=== PATIENT | female | born 1950 | race Caucasian/White ===

== ENCOUNTER 2019-08-11 08:56 | Outpatient (CLI) | payer MEDICARE, SELFPAY ==
--- NOTE | 2019-08-11 09:02 | MM_ITS ---
WS: [id number] BILATERAL DIGITAL SCREENING MAMMOGRAPHY WITH CAD CLINICAL INFORMATION: SCREENING HISTORY: Screening mammogram. No current complaints. COMPARISON: TECHNIQUE: Bilateral CC and MLO views. FINDINGS: The breasts are composed of heterogeneous fibroglandular density tissue, which can limit the detectio n of small underlying mass lesions. No suspicious mass, asymmetry, calcifications, or architectural d istortion. No evidence of malignancy. MM/[place] [id number] IMPRESSION: BI-RADS: 2-Benign FOLLOW UP: 1 Year Follow-up Recommend return to annual screening mammography.
== END 2019-08-11 08:57 | disposition home or self-care (01) ==
LOC: RADSHAW 09:01
PROVIDERS: PCP Electrodiagnostic Medicine; Visit Provider Electrodiagnostic Medicine
DX: Z12.31 Encounter for screening mammogram for malignant neoplasm of breast (principal)
CPT/HCPCS: 77067

== ENCOUNTER 2019-08-12 16:22 | Outpatient (CLI) | payer MEDICARE, SELFPAY ==
--- NOTE | 2019-08-12 16:32 | XRR_ITS ---
PROCEDURE INFORMATION: Exam: XR Abdomen, 1 View Exam date and time: 08/12/2019 4:39 PM Age: 68 years old Clinical indication: Other: Urinary issues, frequent urination; Prior surgery; Surgery date: 6+ months; Surgery type: Appy/hyst TECHNIQUE: Imaging protocol: XR of the abdomen. Views: Frontal supine view of the abdomen. 1 View. COMPARISON: No relevant prior studies available. FINDINGS: Gastrointestinal tract: The bowel gas pattern is nonspecific Bones/joints: Unremarkable. XR/XR KUB [id number] IMPRESSION: No acute findings.
== END 2019-08-12 16:23 | disposition home or self-care (01) ==
LOC: RAD 16:24
PROVIDERS: PCP Electrodiagnostic Medicine; Visit Provider Nurse Practitioner
DX: R35.0 Frequency of micturition (principal); N39.0 Urinary tract infection, site not specified
CPT/HCPCS: 74018; 81000

== ENCOUNTER 2019-08-24 10:31 | Outpatient (CLI) | payer MEDICARE, SELFPAY ==
--- NOTE | 2019-08-24 10:37 | XR_ITS ---
WS: [id number] FOOT RIGHT TECHNIQUE: 3 views of the right foot CLINICAL INFORMATION: FOOT PAIN RIGHT, FALL, CLOSED FRACTURE OF METATARSAL BONE COMPARISON: 2019 FINDINGS: Hallux valgus. Osteopenia. Prior postoperative changes plate and screw fixation second third and four th metatarsals with healed fractures. Progressed degenerative narrowing involving the first TMT joint . XR/XR foot RT min 3V* [id number] IMPRESSION: 1. Hallux valgus with bunion deformity. 2. Postoperative changes plate and screw fixation ununited second third and fo urth metatarsal fractures 3. Progressed degenerative changes at the first TMT.
== END 2019-08-24 10:32 | disposition home or self-care (01) ==
LOC: RADWPI 10:35
PROVIDERS: Family Provider Electrodiagnostic Medicine; PCP Electrodiagnostic Medicine; Visit Provider Electrodiagnostic Medicine
DX: S92.321A Displaced fracture of second metatarsal bone, right foot, initial encounter for closed fracture; S92.331A Displaced fracture of third metatarsal bone, right foot, initial encounter for closed fracture; S92.341A Displaced fracture of fourth metatarsal bone, right foot, initial encounter for closed fracture; X58.XXXA Exposure to other specified factors, initial encounter
CPT/HCPCS: 73630

== ENCOUNTER → 2019-09-12 13:56 | Outpatient (BNVA) | payer MEDICARE, SELFPAY | PROVIDERS: Family Provider Electrodiagnostic Medicine; PCP Electrodiagnostic Medicine; Referring Provider Electrodiagnostic Medicine; Visit Provider Nurse Practitioner Family | DX: N30.20 Other chronic cystitis without hematuria (principal) | CPT/HCPCS: 80053; 81001 ==

== ENCOUNTER → 2019-09-29 09:59 | Outpatient (BNVA) | payer MEDICARE, SELFPAY | PROVIDERS: Family Provider Electrodiagnostic Medicine; PCP Electrodiagnostic Medicine; Visit Provider Internal Medicine Rheumatology | DX: Z79.899 Other long term (current) drug therapy (principal); R76.8 Other specified abnormal immunological findings in serum; Z96.659 Presence of unspecified artificial knee joint; M25.50 Pain in unspecified joint; L65.9 Nonscarring hair loss, unspecified; M85.80 Other specified disorders of bone density and structure, unspecified site | CPT/HCPCS: 36415; 80076; 81001; 82565; 82570; 84156; 85025; 99203 ==

== ENCOUNTER → 2019-10-12 08:45 | Outpatient (BNVA) | payer MEDICARE, SELFPAY | PROVIDERS: Family Provider Electrodiagnostic Medicine; PCP Electrodiagnostic Medicine; Visit Provider Urology | DX: N30.90 Cystitis, unspecified without hematuria (principal); R10.2 Pelvic and perineal pain | CPT/HCPCS: 81001 ==

== ENCOUNTER 2019-11-18 08:20 | Outpatient (CLI) | payer MEDICARE, SELFPAY ==
--- NOTE | 2019-11-18 08:00 | US_ITS ---
WS: [id number] ULTRASOUND PELVIS TECHNIQUE: Transabdominal. CLINICAL INFORMATION: PELVIC PAIN : No. COMPARISON: None. FINDINGS: History of hysterectomy/partial hysterectomy. Uterus is not visualized. Adnexa: Left ovary not visualized Right ovary size: 2.4 cm x 1.9 cm x 1.1 cm. Right ovary volume: 2.6 ccm3 Free fluid: None. Other findings: None. US/US pelvic complete* [id number] IMPRESSION: 1. History of hysterectomy/partial hysterectomy. Uterus not visualized. 2. Left ovary not visualized. Small right ovary measuring 2.3 x 1.1 x 1.8 cm. 3. Normal adnexa. 4. No free fluid in the cul-de-sac.
== END 2019-11-18 08:21 | disposition home or self-care (01) ==
PROVIDERS: PCP Electrodiagnostic Medicine; Visit Provider Urology
DX: R10.2 Pelvic and perineal pain (principal)
CPT/HCPCS: 76856; 81001

== ENCOUNTER → 2019-12-19 09:05 | Outpatient (BNVA) | payer MEDICARE, SELFPAY | PROVIDERS: PCP Electrodiagnostic Medicine; Visit Provider Nurse Practitioner Family | DX: N30.90 Cystitis, unspecified without hematuria (principal) | CPT/HCPCS: 81003 ==

== ENCOUNTER → 2020-03-05 09:42 | Outpatient (BNVA) | payer MEDICARE, SELFPAY | PROVIDERS: PCP Electrodiagnostic Medicine; Visit Provider Nurse Practitioner Family | DX: N30.20 Other chronic cystitis without hematuria (principal) | CPT/HCPCS: 81003 ==

== ENCOUNTER 2021-01-15 13:22 | Outpatient (CLI) | payer MEDICARE, SELFPAY ==
[2021-01-15 13:41] VITALS: BP 140/63; PULSE 61; RESP 22; TEMP 36.9; O2SAT 98; BMI 29.7
[2021-01-15 14:11] VITALS: BP 140/71; PULSE 56; RESP 20; O2SAT 95
[2021-01-15 15:06] VITALS: BP 157/69; PULSE 61; RESP 18; TEMP 36.6; O2SAT 95
== END 2021-01-15 13:23 | disposition home or self-care (01) ==
LOC: OPS 13:23
PROVIDERS: PCP Electrodiagnostic Medicine; Visit Provider Electrodiagnostic Medicine
DX: U07.1 COVID-19 (principal)
CPT/HCPCS: 96365

== ENCOUNTER 2021-05-23 08:54 | Outpatient (CLI) | payer MEDICARE, SELFPAY ==
--- NOTE | 2021-05-23 09:04 | MM_ITS ---
WS: [id number] BILATERAL 3D TOMOSYNTHESIS DIGITAL SCREENING MAMMOGRAPHY WITH CAD CLINICAL INFORMATION: SCREEN HISTORY: Screening mammogram. No current complaints. COMPARISON: August 11, 2019 TECHNIQUE: Bilateral CC and MLO views. FINDINGS: Scattered fibroglandular densities bilaterally. Punctate and lucent centered calcifications. Vascular calcification. Stable ovoid intramammary lymph node inner RIGHT breast. No suspicious focal mass, as ymmetry, calcifications, or architectural distortion. No evidence of malignancy. MM/[place] [id number] IMPRESSION: BI-RADS: 2-Benign FOLLOW UP: 1 Year Follow-up Recommend return to annual screening mammography.
== END 2021-05-23 08:55 | disposition home or self-care (01) ==
LOC: RADSHAW 08:57
PROVIDERS: PCP Electrodiagnostic Medicine; Visit Provider Electrodiagnostic Medicine
DX: Z12.31 Encounter for screening mammogram for malignant neoplasm of breast (principal)
CPT/HCPCS: 77063; 77067

== ENCOUNTER 2022-05-27 10:06 | Outpatient (CLI) | payer MEDICARE, SELFPAY ==
--- NOTE | 2022-05-27 10:22 | MM_ITS ---
WS: [id number] BILATERAL 3D TOMOSYNTHESIS DIGITAL SCREENING MAMMOGRAPHY WITH CAD CLINICAL INFORMATION: SCREENING HISTORY: Screening mammogram. No current complaints. COMPARISON: May 23, 2021 TECHNIQUE: Bilateral CC and MLO views. FINDINGS: The breasts are composed of heterogeneous fibroglandular density tissue, which can limit the detectio n of small underlying mass lesions. No suspicious mass, asymmetry, calcifications, or architectural d istortion. No evidence of malignancy. Punctate and lucent centered calcifications. Vascular calcifica tion. MM/[place] [id number] IMPRESSION: BI-RADS: 2-Benign FOLLOW UP: 1 Year Follow-up Recommend return to annual screening mammography.
== END 2022-05-27 10:07 | disposition home or self-care (01) ==
PROVIDERS: PCP Electrodiagnostic Medicine; Visit Provider Electrodiagnostic Medicine
DX: Z12.31 Encounter for screening mammogram for malignant neoplasm of breast (principal)
CPT/HCPCS: 77063; 77067

== ENCOUNTER → 2022-10-21 07:27 | Outpatient (BNVA) | payer MEDICARE, SELFPAY | PROVIDERS: PCP Electrodiagnostic Medicine; Visit Provider Otolaryngology | DX: K12.30 Oral mucositis (ulcerative), unspecified; K05.10 Chronic gingivitis, plaque induced; R76.8 Other specified abnormal immunological findings in serum | CPT/HCPCS: 99203 ==

== ENCOUNTER 2023-03-29 23:47 | Inpatient (IN) | payer MEDICARE, SELFPAY ==
[2023-03-30] VITALS (65 sets, daily range): BP systolic 92–195; BP diastolic 30–82; PULSE 48–71; RESP 11–28; TEMP 36.4–36.6; O2SAT 95–99; BMI 30.7; BMI 32.3
--- NOTE | 2023-03-30 00:37 | XRR_ITS ---
PROCEDURE INFORMATION: Exam: XR Chest Exam date and time: 03/30/2023 1:05 AM Age: 72 years old Clinical indication: Prior surgery; Surgery date: 6+ months; Surgery type: Ptca; Patient HX: Hypertensive over 200 systolic; Additional info: Jaw pain HTN TECHNIQUE: Imaging protocol: Radiologic exam of the chest. Views: 1 view. COMPARISON: No relevant prior studies available. FINDINGS: Lungs: No definite CHF/pulmonary edema. Poor inspiration somewhat limits evaluation, especially of the lung bases. Visible lungs appear essentially clear. Pleural spaces: No visible pneumothorax. No definite pleural fluid. Heart/Mediastinum: Heart size appears upper normal/mildly prominent. Bones/joints: No significant acute finding. XR/XR chest 1V portable [id number] IMPRESSION: 1. No definite CHF or pneumonia. 2. Other findings discussed above.
--- NOTE | 2023-03-30 00:37 | CTR_ITS ---
PROCEDURE INFORMATION: Exam: CT Head Without Contrast Exam date and time: 03/30/2023 1:09 AM Age: 72 years old Clinical indication: Pain; Headache; Patient HX: KC with hypertension over 200 systolic; Additional info: Headache HTN TECHNIQUE: Imaging protocol: Computed tomography of the head without contrast. Radiation optimization: All CT scans at this facility use at least one of these dose optimization techniques: automated exposure control; mA and/or kV adjustment per patient size (includes targeted exams where dose is matched to clinical indication); or iterative reconstruction. COMPARISON: No relevant prior studies available. RADIATION DOSE METRICS: Total DLP (mGy-cm): 1011.13 FINDINGS: Brain: No acute intracranial hemorrhage or mass effect. There is decreased attenuation in the periventricular white matter, likely from microvascular disease. No definite acute infarct by CT. MRI would be more sensitive/specific for detection, as clinically directed. Cerebral ventricles: Ventricle size is normal for age. Paranasal sinuses: Included paranasal sinuses are essentially clear. Mastoid air cells: No significant acute finding. Bones/joints: No definite acute skull fracture. Soft tissues: No significant acute finding. Vasculature: Vascular calcifications in the internal carotid and vertebral basilar systems. CT/CT head wo con* [id number] IMPRESSION: 1. No acute intracranial hemorrhage or mass effect. 2. Changes of microvascular disease. 3. No definite acute infarct by CT, see above. 4. Other findings discussed above.
[2023-03-30 00:50] LABS: Basophils # 0.1 10^3/uL (0.0-0.1); Basophils % 0.9 %; Eosinophils # 0.3 10^3/uL (0.0-0.8); Eosinophils % 3.1 %; Hematocrit 39.4 % (36-47); Lymphocytes # 2.6 10^3/uL (0.8-4.8); Lymphocytes % 28.1 %; Mean Corpuscular Hemoglobin 30.6 pg (27-33); Mean Platelet Volume 8.8 fL (7.4-10.4); Monocytes # 0.9 10^3/uL (0.2-0.9); Monocytes % 9.7 %; Neutrophils # 5.34 10^3/uL (1.8-7.7); Neutrophils % 57.1 %; Nucleated Red Blood Cells % 0 %; Platelet Count 289 10^3/cmm (157-399); Red Blood Count 4.38 10^6/uL (3.85-5.65); Red Cell Distribution Width 13.2 % (12.1-15.1); White Blood Count 9.34 10^3/uL (3.29-11.43)
[2023-03-30 01:10] LABS: Troponin(5th) Baseline 18 ng/L (0-10)
[2023-03-30] MEDS: amlodipine 10 mg Tablet PO (01:17)
[2023-03-30] MEDS: enalaprilat 2.5 mg/2 mL SDV 1.25 MG IVP (01:17)
[2023-03-30] MEDS: hyDRALAzine 20 mg/mL INJ 1 mL IVP (01:18)
[2023-03-30 01:25] LABS: Alanine Aminotransferase 27 U/L (0-33); Albumin Level 4.1 g/dL (3.5-5.2); Alkaline Phosphatase 72 U/L (35-105); Anion Gap 16.4 (5-19); Aspartate Amino Transferase 26 U/L (0-32); Blood Urea Nitrogen 23 mg/dL (8-23); Calcium 9.3 mg/dL (8.5-10.5); Carbon Dioxide 24 mmol/L (22-29); Chloride 90 mmol/L (98-107); Creatinine Clr Calc Pharmacy 39.9056; Globulin 2.9 g/dL (1.3-4.6); Glucose 104 mg/dL (65-115); NT Pro B Type Natriuretic Pept 696 pg/mL (0-125); Osmolality Calculated 266 mOsm/kg (285-295); Potassium 4.4 mmol/L (3.5-5.1); Sodium 126 mmol/L (136-145); Total Bilirubin 0.3 mg/dL (0.15-1.2)
[2023-03-30] MEDS: sodium chloride 0.9% 500 ML 999 ML IV (02:11)
--- NOTE | 2023-03-30 02:37 | ECG_ITS ---
[facility] Test Date: 2023-03-30 Pat Name: Nika Spears Department: Room: Gender: Female Pier Hand: : 1950 Requested By: Kashif Pop Order Number: [id number] Myah MD: Korey Sher M.D. Measurements Intervals [place] Rate: 49 P: 65 ND: 226 QRS: -10 QRSD: 94 T: 43 QT: 510 QTc: 462 Interpretive Statements SINUS BRADYCARDIA WITH FIRST DEGREE AV BLOCK ST DEVIATION AND MODERATE T-WAVE ABNORMALITY, CONSIDER LATERAL ISCHEMIA [-0.1+ mV T-WAVE IN I/aVL/V5/V6] ST DEVIATION AND MODERATE T-WAVE ABNORMALITY, CONSIDER INFERIOR ISCHEMIA [-0.1+ mV T-WAVE IN II/aVF] No previous ECG available for comparison Electronically Signed On 03-30-2023 14:20:47 AIR GRINDER by Korey Sher M.D. [id number]
[2023-03-30 02:46] LABS: Troponin 5 2HR 19.19 ng/L (0-10); Troponin 5 2HR Delta 1.19 ABS# (0-10)
[2023-03-30] MEDS: ropinirole 1 mg Tablet PO (03:18)
--- NOTE | 2023-03-30 03:56 | PM.HP ---
Providers/Chief Complaint Primary Care Provider: Mitul Peters DO Chief Complaint: high bp pressure in neck/jaw headache History of Present Illness Nika Spears is a 72 year old female with past medical history significant for coronary artery disease status post stent 2003, dyslipidemia, COPD, diabetes melitis type II, M?ni?re's disease, hypertension, and multiple medical comorbidities who presents emergency department with jaw and throat pain. Patient reports she was in her usual state of health until when she developed a headache. She states she took her blood pressure and it was markedly high. She is continue to take her blood pressure since that time and has remained elevated. She has a blood pressure log bedside. Review show some home blood pressures with SBP greater than 200 at times. She reports a history of hypertension and is on antihypertensives. She reports that she did take extra metoprolol due to elevated blood pressures. She is following with her primary care provider for blood pressure management. Patient reports to try to go to sleep tonight but she developed the throat/jaw pain which became increasingly worse prompting her to be evaluated. She denies any alleviating or aggravating factors. She notes that mastication does not worsen pain. She endorses a history of coronary artery disease. She states that she was treated with a stent in 2003 at [facility]. She denies having a heart attack at that time. She states at that time she was having left-sided substernal chest pain. She denies any such symptoms currently. She denies any ischemic workup including stress test or cardiac cath since that time. She denies any recent echocardiogram. She reports she is no longer following with a manager agricultural as outpatient. In the ED, patient was found to have sinus bradycardia and initially markedly elevated blood pressure. She received IV antihypertensives with subsequent borderline hypotension resulting. Labs revealed hyponatremia with sodium of 126. She reports she is on hydrochlorothiazide (home medication list has not been updated yet). BUN 23 and creatinine 1.2. No recent baseline labs in [facility]. Troponin T baseline of 18 ng/L with 2-hour troponin T of 19.19 ng/L yielding a delta troponin of only 1.19. NT proBNP was elevated at 696 pg/mL. Chest x-ray was negative for evidence of congestive heart failure or pneumonia. CT head was negative for acute findings, showing only sequela of microvascular disease. EKG showed sinus bradycardia with first-degree block as well as inferior lateral T wave depressions. No recent prior EKG available for comparison. Review of Systems Narrative: A complete review of systems was obtained and is negative except as stated in HPI. Medications/Allergies Home Medications Medication Instructions Recorded Confirmed Last Taken Type atorvastatin 10 mg tablet 10 mg PO DAILY 08/12/19 10/21/22 Unknown History conjugated estrogens 0.625 mg 0.625 mg PO DAILY 08/12/19 10/21/22 Unknown History tablet (Premarin) pantoprazole 20 mg tablet,delayed 20 mg PO DAILY 08/12/19 10/21/22 Unknown History release (Protonix) amitriptyline 10 mg tablet 10 mg PO DAILY 09/12/19 10/21/22 Unknown History celecoxib 200 mg capsule 200 mg PO DAILY 09/12/19 10/21/22 Unknown History valsartan 160 mg tablet 160 mg PO DAILY 09/12/19 10/21/22 Unknown History metoprolol tartrate 25 mg tablet 100 mg PO DAILY 09/29/19 10/21/22 Unknown History aspirin 81 mg capsule 81 mg PO BID 01/15/21 10/21/22 Unknown History cetirizine 10 mg capsule 10 mg PO DAILY 01/15/21 10/21/22 Unknown History triamcinolone acetonide 0.1 % 1 applic topical DAILY 10/21/22 10/21/22 Unknown History topical ointment Allergies Allergy/AdvReac Type Severity Reaction Status Date / Time No Known Allergies Allergy Verified 03/30/23 00:30 PFSH Acute PFSH: Medical History (Updated 03/30/23 @ 04:42 by Donn Li MD) Gingivitis Oral mucositis (ulcerative), unspecified Chronic cystitis Pelvic pain Osteopenia after menopause Alopecia of scalp Asthma Meniere disease Diabetes Joint pain Positive CYNTHIA (antinuclear antibody) COPD (chronic obstructive pulmonary disease) Hypertension GERD (gastroesophageal reflux disease) Cystitis Surgical History (Updated 03/30/23 @ 04:38 by Donn Li MD) Hx of total knee arthroplasty History of total left knee replacement Status post hysterectomy Hx of heart artery stent Family History Grandmother CAD (coronary artery disease) Other Cancer Hypertension Denies family history of Rheumatoid arthritis Diabetes Lupus Hyperlipidemia Chronic kidney disease (CKD) Lung disease Stroke Social History Smoking and tobacco/nicotine status: never used tobacco/nicotine Alcohol intake: never Substance/Drug Use: unknown Adopted: No Caregiver/support person: No Lives independently: No Household members: spouse Marital status: Current occupational status: retired Vitals/I&O/Wt Last Vital Signs Temp 97.7 F 03/30/23 00:10 Pulse 60 03/30/23 03:54 Resp 28 H 03/30/23 03:54 BP 148/71 03/30/23 03:54 Pulse Ox 96 03/30/23 03:54 O2 Del Method Room Air 03/30/23 03:54 03/29/23 03/29/23 03/30/23 14:59 22:59 06:59 Intake Total 500 / 500 Balance 500 / 500 Weight last 48 hrs Weight 76.204 kg Physical Exam Narrative: General: Patient is awake. Lying in bed. Appears fatigued but very pleasant. Head: Normocephalic. Atraumatic. EOM intact. Neck: No JVD. Cardiovascular: Bradycardic with regular rhythm. No gallops. No murmurs. No peripheral edema. Lungs: Breath sounds diminished bilateral bases, no use of accessory muscles, no crackles or wheezes. Skin: No jaundice. No rashes. Abdomen: Normal bowel sounds, abdomen soft and nontender. Genito Urinary: Genital exam not performed since complaints not related. Rectal: Rectal exam not performed since no symptoms indicated blood loss. Extremities: No cyanosis or clubbing. Musculoskeletal: No swollen or erythematous joints. Neurological: Moves all 4 extremities. No myoclonus. Data 03/30/23 00:44 03/30/23 00:44 A&P Assessment and plan (1) Unstable angina: Presentation is consistent with suspected unstable angina in the setting of known coronary artery disease with prior stent to unknown artery in 2003 Trend EKGs and continuous telemetry monitoring Patient needs ischemic workup, stress test ordered, may need changed pending clinical course N.p.o. for cardiac testing Check lipids and A1c Avoid NSAIDs Complete echocardiogram Start therapeutic Lovenox Continue aspirin and statin Low threshold for cardiology consult (2) Hypertension: Hypertension complicated by hypertensive urgency Status post IV antihypertensives, blood pressure now soft Home medication list is still pending Monitor blood pressure closely, will likely need some titration Hold off on additional beta-blockade given bradycardia and patient took extra metoprolol at home Qualifiers: Hypertension type: unspecified Qualified Code(s): I10 - Essential (primary) hypertension (3) Bradycardia: Sinus bradycardia Could be related to increased metoprolol dosing Continuous telemetry monitoring Monitoring for worsening arrhythmia (4) Hyponatremia: Sodium 126, no recent comparison Patient reports she is on hydrochlorothiazide (home list not up-to-date yet) Will hold loop and thiazide diuretics until potassium improves Gentle IV fluids with normal saline Trend sodium (5) Diabetes: Suspected type 2 diabetes mellitus Sliding-scale insulin correction Avoid hypoglycemia (6) COPD (chronic obstructive pulmonary disease): Without exacerbation DuoNebs as needed Qualifiers: COPD type: unspecified COPD Qualified Code(s): J44.9 - Chronic obstructive pulmonary disease, unspecified Plan DVT prophylaxis: Lovenox CODE STATUS: Full code Attestations Medical Necessity Statement*: Patient presents with jaw/neck pain in the setting of uncontrolled blood pressure with presentation concerning for possible unstable angina with expected hospitalization not to cross 2 midnights for further ischemic workup, echocardiogram, serial EKGs, telemetry, and supportive care. Coding Level of Care Code Acute Code for Chg Fwd Diagnoses Unstable angina I20.0 Hypertension, unspecified type I10 Hypertension type: unspecified Bradycardia R00.1 Hyponatremia E87.1 Diabetes E11.9 Chronic obstructive pulmonary disease, unspecified COPD type J44.9 COPD type: unspecified COPD
--- NOTE | 2023-03-30 04:43 | USCV_ITS ---
Nika Spears Age: 72 Gender: F : 1950 Exam Date: 03/30/2023 12:35 Ordering Phys: Donn Li MD Technologist: [place] [facility] [place]: sob chest pain BP: 172 / 71 HR: 0 Rhythm: Sinus Technical Quality: MEASUREMENTS (Male / Female) Normal Values 2D ECHO LV Diastolic Diameter PLAX 4.8 cm 4.2 - 5.9 / 3.9 - 5.3 cm IVS Diastolic Thickness 1.0 cm 0.6 - 1.0 / 0.6 - 0.9 cm IVS Systolic Thickness 1.3 cm LVPW Diastolic Thickness 1.2 cm 0.6 - 1.0 / 0.6 - 0.9 cm LVPW Systolic Thickness 1.5 cm LVOT Diameter 1.7 cm LV Ejection Fraction 2D Teich 61.6 % M-MODE LA Ao Ratio MM 1.7 AV Cusp Separation MM 1.8 cm DOPPLER AV Area Cont Eq vti 2.1 cm squared AV Area Cont Eq pk 1.6 cm squared MV Area PHT 2.2 cm squared TV Peak Velocity 167.0 cm/s TR Peak Velocity 215.0 cm/s TR Peak Gradient 18.5 mmHg Right Atrial Pressure 3.0 mmHg Pulmonary Artery Systolic Pressu 21.5 mmHg PV Peak Velocity 114.0 cm/s FINDINGS Left Ventricle Left ventricle is normal in size. LV systolic function is normal with EF 55 to 60%. No regional wall motion abnormalities are seen. Grade 1 diastolic dysfunction Right Ventricle Normal in size and function Right Atrium Normal in size Left Atrium Normal in size Mitral Valve Structurally normal mitral valve. Mild mitral regurgitation. Aortic Valve Structurally normal aortic valve. No significant stenosis or regurgitation. Tricuspid Valve Mild tricuspid regurgitation. Pulmonary artery systolic pressure is normal. Pulmonic Valve Not well-visualized. Pericardium Normal Aorta Normal in size IVC Appears to be normal CONCLUSIONS LV systolic function is normal with EF of 55 to 60%. Grade 1 diastolic dysfunction. Mild mitral regurgitation. Mild tricuspid regurgitation. No comparison studies are available. Vipin Pearce MD (Electronically Signed) Final Date: 30 March 2023 15:11 S
--- NOTE | 2023-03-30 04:44 | NMCV_ITS ---
NM kevin perf SPECT r/s* [id number] Nika Spears Age: 72 Gender: F : 1950 Exam Date: 03/30/2023 04:44 Ordering Phys: Donn Li MD Technologist: MERRITT Rasmussen Exam Location: [facility] Indications: CHEST PAIN STRESS TEST Please see separate stress test report in [facility] for full findings IMAGE PROTOCOL Rest/Stress 1 Lexiscan Day Radiopharmaceutical Dose (mCi) Administration Site Administered by Rest: Tc-99m 10.5 IV MERRITT Cruz Sestamibi Stress:Tc-99m 32.7 IV MERRITT Cruz Sestamibi Rest: 30-Mar-2023 60 Discovery 630 Stress: 30-Mar-2023 30 Discovery 630 0.4mg Lexiscan. Images obtained in supine and prone position. SPECT RESULTS Technical Quality: Excellent Raw Data Analysis: Normal Image Corrections: No attenuation or motion correction applied Summed Stress Score: 2 Summed Rest Score: 0 Summed Difference Score: 2 PERFUSION FINDINGS There is a small sized area of reversible ischemia reversible perfusion defect noted in inferolateral wall. This is consistent with small area of ischemia in left circumflex artery territory. FUNCTIONAL RESULTS (calculated via Gated SPECT) Stress Image LV EF (%): 73 Stress EDV (mL):75 TID: 0.94 Stress ESV (mL):20 FUNCTIONAL FINDINGS: There is normal left ventricular systolic function. IMPRESSIONS 1. Small area of ischemia noted in the left circumflex artery territory 2. LV systolic function is normal Vipin Pearce MD (Electronically Signed) Final Date: 30 March 2023 12:54 S
--- NOTE | 2023-03-30 04:44 | ECG_ITS ---
[facility] Test Date: 2023-03-30 Pat Name: Nika Spears Department: Room: 108 Gender: Female Wind Turbine Technician: Ariana Zuritafus : 1950 Requested By: Donn Stringer Order Number: [id number] Myah MD: Vipin Pearce M.D. Interpretive Statements NAME OF STUDY: LEXISCAN SESTAMIBI STRESS TEST INDICATION: [Angina , ] Procedure: At the baseline, the blood pressure was 135/65 mmHg with a heart rate of 60 bpm. The electrocardiogram showed normal sinus rhythm, normal axis with borderline ST depressions in inferior and lateral leads The Lexiscan was infused over a period of 20 seconds. A total of 0.4 mg of Lexiscan was infused. The stress phase was continued for a total of 5 minutes. Heart rate was at the end of stress phase was 92 bpm and a blood pressure of 123/76 mmHg. The EKG at the peak infusion revealed normal sinus rhythm with significant ST depressions in inferior leads and anterolateral leads Sestamibi was injected 20 seconds after the Lexiscan infusion. Blood pressure at the end of recovery phase was 155/62 mmHg with a heart rate of 69 bpm. Conclusion: 1. Prominent ST depressions in the inferior and anterolateral leads on baseline and worsened with Lexiscan infusion. 2. No Lexiscan induced chest pain or cardiac arrhythmia. 3. Normal blood pressure and heart rate response. 4. Sestamibi/sestamibi perfusion scan pending; see separate report. Electronically Signed On 04-10-2023 12:03:13 NET SQL DEVELOPER by Vipin Pearce M.D. [id number]
[2023-03-30] MEDS: sodium chloride 0.9% 1,000 ML 75 ML IV (05:12)
--- NOTE | 2023-03-30 05:12 | ED_ITS ---
HPI - General Adult 2 General: Chief complaint: General Medical Stated complaint: high bp pressure in neck/jaw headache Time Seen by Provider: 03/30/23 00:38 History of Present Illness: 72-year-old female with a distant histor y of coronary disease. She had a stent placed in 2003 in [place]. She is to follow-up in [place] with a relay mechanic to travel down to there from [place], but he has since retired. She presents with jaw discomfort, neck discomfort, and shortness of breath. This has been going on and off for about 3 days now. She is also has noticed a steady climb in her blood pressure. Her blood pressure was in the 190s and 200s prior to arrival. Associated symptoms: Reports chest pain and dyspnea; Deny confusion, headache(s), rash or vomiting Review of Systems 2 Const: Denies: fever(s) Eyes: Denies: change in vision ENMT: Reports: throat pain and dental pain Card: Reports: chest pain Resp: Reports: dyspnea GI: Denies: abdominal pain, vomiting, diarrhea or hematochezia Skin/Breast: Denies: rash Neuro: Denies: headache(s), weakness in extremities, dizziness or confusion PFSH ED 2 PFSH: Medical History Gingivitis Oral mucositis (ulcerative), unspecified Chronic cystitis Pelvic pain Osteopenia after menopause Alopecia of scalp Asthma Meniere disease Diabetes Joint pain Positive CYNTHIA (antinuclear antibody) COPD (chronic obstructive pulmonary disease) Hypertension GERD (gastroesophageal reflux disease) Cystitis Surgical History Hx of total knee arthroplasty History of total left knee replacement Status post hysterectomy Hx of heart artery stent Family History Grandmother CAD (coronary artery disease) Other Cancer Hypertension Denies family history of Rheumatoid arthritis Diabetes Lupus Hyperlipidemia Chronic kidney disease (CKD) Lung disease Stroke Social History Smoking and tobacco/nicotine status: never used tobacco/nicotine Alcohol intake: never Substance/Drug Use: unknown Adopted: No Caregiver/support person: No Lives independently: No Household members: spouse Marital status: Current occupational status: retired Physical Exam 2 Const: COMMON NORMALS: no acute distress GENERAL APPEARANCE: cooperative; not ill appearing and not frail appearing HENMT: COMMON NORMALS: normocephalic, atraumatic and Normal external nose present HEAD & SCALP: normocephalic and atraumatic FACE & SINUS: normal facial exam and face symmetric NOSE: Normal external nose present Eye: COMMON NORMALS: Equal, round and reactive pupils present and EOMs intact bilaterally PUPIL: Yes Equal, round and reactive pupils present Neck/C-Spine: GENERAL: Yes trachea midline Chest: CHEST: Yes Symmetrical chest wall rise Resp: COMMON NORMALS: normal respiratory effort, No retractions, No use of accessory muscles and clear to auscultation bilaterally AUSCULTATION: clear to auscultation bilaterally Cardio: COMMON NORMALS: regular rhythm RATE: bradycardic RHYTHM: regular rhythm GI: COMMON NORMALS: Normal to inspection, nondistended, normoactive bowel sounds present Extremity: COMMON NORMALS: no pedal edema Neuro: LEVI COMA SCALE: document GCS findings [place] coma scale eye opening: Spontaneous [place] coma scale verbal response: Orientated [place] coma scale motor response: Obey commands Levi coma scale total score: 15 S ENSORY EXAM: Yes extremities (intact) Psych: COMMON NORMALS: speech normal SPEECH: Yes normal speech Skin: COMMON NORMALS: no rashes or lesions noted GENERAL SKIN EXAM: no rashes or lesions noted Course 2 Vital Signs: Vital signs: Vital Signs Temperature 97.6 F 03/30/23 04:27 Pulse Rate 57 L 03/30/23 04:29 Respiratory Rate 18 03/30/23 04:29 Blood Pressure 114/51 03/30/23 04:27 Pulse Oximetry 98 03/30/23 04:29 Oxygen Delivery Me thod Room Air 03/30/23 04:27 [facility] - General Adult Medical Decision Making 72-year-old female with jaw pain and neck pain with hypertension. She was given hydralazine, Vasotec, amlodipine. Her blood pressure actually sank low for a bit until the hydralazine wore off. Blood pressure had improved to 140s systolic. The patient still complains of neck pain and jaw pain. EKG shows sinus bradycardia with ST depression particularly in the inferior leads. CBC is normal. Sodium is 126. Creatinine is 1.2. We have no prior EKGs or laboratory on this patient. Initial troponin is 18 with a 2-hour delta of 1.2. EKG, and symptoms with prior history are concerning. She has agreed to observation. Spoke with hospitalist who agrees. She will go to the [facility]. Stress later this morning. Lab Data 02 00:44 02 00:44 Radiology Impressions Chest X-Ray 03/30/23 00:37 IMPRESSION: 1. No definite CHF or pneumonia. 2. Other findings discussed above. Head CT 03/30/23 00:37 IMPRESSION: 1. No acute intracranial hemorrhage or mass effect. 2. Changes of microvascular disease. 3. No definite acute infarct by CT, see above. 4. Other findings discussed above. Laboratory Results WBC 9.34 10^3/uL (3.29-11.43) 03/30/23 00:44 RBC 4.38 10^6/uL (3.85-5.65) 03/30/23 00:44 Hgb 13.40 g/dL (11.27-16.99) 03/30/23 00:44 Hct 39.4 % (36-47) 03/30/23 00:44 MCV 90.0 fl (85-98) 03/30/23 00:44 MCH 30.6 pg (27-33) 03/30/23 00:44 MCHC 34.0 g/dL (30-55) 03/30/23 00:44 RDW 13.2 % (12.1-15.1) 03/30/23 00:44 Plt Count 289 10^3/cmm (157-399) 03/30/23 00:44 MPV 8.8 fL (7.4-10.4) 03/30/23 00:44 Neut % (Auto) 57.1 % 03/30/23 00:44 Lymph % (Auto) 28.1 % 03/30/23 00:44 [place] % (Auto) 9.7 % 03/30/23 00:44 Eos % (Auto) 3.1 % 03/30/23 00:44 Baso % (Auto) 0.9 % 03/30/23 00:44 Neut # (Auto) 5.34 10^3/uL (1.8-7.7) 03/30/23 00:44 Lymph # (Auto) 2.6 10^3/uL (0.8-4.8) 03/30/23 00:44 [place] # (Auto) 0.9 10^3/uL (0.2-0.9) 03/30/23 00:44 Eos # (Auto) 0.3 10^3/uL (0.0-0.8) 03/30/23 00:44 Baso # (Auto) 0.1 10^3/uL (0.0-0.1) 03/30/23 00:44 Nucleated RBC % (auto) 0 % 03/30/23 00:44 Nucleated RBCs # 0.0 /100WBC 03/30/23 00:44 Sodium 126 mmol/L (136-145) L 03/30/23 00:44 Potassium 4.4 mmol/L (3.5-5.1) 03/30/23 00:44 Chloride 90 mmol/L (98-107) L 03/30/23 00:44 Carbon Dioxide 24 mmol/L (22-29) 03/30/23 00:44 Anion Gap 16.4 (5-19) 03/30/23 00:44 BUN 23 mg/dL (8-23) 03/30/23 00:44 Creatinine 1.2 mg/dL (0.5-0.9) H 03/30/23 00:44 GFR Calculation Not Reportable 03/30/23 00:44 Glucose 104 mg/dL (65-115) 03/30/23 00:44 Estimat Average Glucose 134 02 00:44 Hemoglobin A1c 6.3 % (4.0-6.0) H 03/30/23 00:44 Calculated Osmolality 266 mOsm/kg (285-295) L 03/30/23 00:44 Calcium 9.3 mg/dL (8.5-10.5) 03/30/23 00:44 Total Bilirubin 0.3 mg/dL (0.15-1.2) 03/30/23 00:44 AST 26 U/L (0-32) 03/30/23 00:44 ALT 27 U/L (0-33) 03/30/23 00:44 Alkaline Phosphatase 72 U/L (35-105) 03/30/23 00:44 Troponin T Baseline 18 ng/L (0-10) H 03/30/23 00:44 Troponin T 120 Minute 19.19 ng/L (0-10) H 03/30/23 02:21 Delta Troponin T 1.19 ABS# (0-10) 03/30/23 02:21 NT-Pro-B Natriuret Pep 696 pg/mL (0-125) H 03/30/23 00:44 Total Protein 7.0 g/dL (6.6-8.7) 03/30/23 00:44 Albumin 4.1 g/dL (3.5-5.2) 03/30/23 00:44 Globulin 2.9 g/dL (1.3-4.6) 03/30/23 00:44 All radiology interpretation(s) finalized by discharge Discharge Plan Discharge Patient Disposition: Admitted As Inpatient Admit Provider: Donn Li Clinical Impression: Hyponatremia, Unstable angina Condition: Stable Coding Level of Care Code ED Intensive Care Anaesthetist for Johnathan Godoy
[2023-03-30 05:52] LABS: Chol HDL Ratio 2.05 mg/dL (0.0-4.40); Cholesterol 166 mg/dL (0-200); HDL Cholesterol 81 mg/dL (60-100); LDL Cholesterol Calculated 52 mg/dL (50-129); LDL HDL Ratio 0.64 RATIO (0.00-3.22); Thyroid Stimulating Hormone 6.01 uIU/mL (0.27-4.20); Triglycerides 165 mg/dL (0-150)
[2023-03-30 07:21] LABS: Troponin 5 6HR 47.45 ng/L (0-10)
[2023-03-30 07:29] LABS: Troponin 5 6HR Delta 29.45 ng/L (0-12)
[2023-03-30 08:45] LABS: Sodium 127 mmol/L (136-145)
--- NOTE | 2023-03-30 08:48 | PC.NURSE ---
Physician orders Tramadol 50mg ONCE Lab orders: T3 and T4
[2023-03-30] MEDS: TRAMadol 50 mg Tablet PO ×2 (08:53→14:25)
[2023-03-30] MEDS: aspirin 81 mg EC Tablet PO ×2 (08:53→17:18)
[2023-03-30] MEDS: enoxaparin 40 mg/0.4 mL Syringe 70 MG SUBCUT ×2 (08:53→17:18)
[2023-03-30] MEDS: pantoprazole DR 40 mg Tablet PO (08:53)
[2023-03-30 08:54] LABS: Add Urine Microscopic? NO; Charge for UA Resulting for Rev
[2023-03-30 09:06] LABS: Bilirubin Urine Neg (Negative); Blood Urine Neg (Negative); Glucose Urine UA Norm (Normal); Ketones Urine Negative (Negative); Leukocyte Esterase Urine Negative (Negative); Nitrate Urine Negative (Negative); Protein Urine Neg (Negative); Urine Appearance Clear (CLEAR); Urine Color Yellow (Yellow); Urobilinogen Urine Neg (Negative); pH Urine 7 (5-7)
[2023-03-30 09:28] LABS: Free T4 Free Thyroxine 1.21 ng/dL (0.82-1.77); T3 Free 3.1 PG/ML (2.0-4.4)
[2023-03-30] MEDS: regadenoson 0.4 Mg/5 ml Syringe 0.400000000000000022 MG IVP (10:07)
[2023-03-30] MEDS: aminophylline 25 mg/mL SDV 10 mL IVP ×2 (10:15→10:17)
[2023-03-30] MEDS: labetalol 5 mg/mL SDV 20mL 10 MG IVP (12:58)
[2023-03-30] MEDS: acetaminophen 325 mg Tablet 650 MG PO (13:43)
[2023-03-30 14:33] LABS: Sodium 126 mmol/L (136-145)
--- NOTE | 2023-03-30 14:35 | P.PN_ITS ---
Subjective 2 Subjective: Patient was seen this morning, she does report pain radiating up to her jaw, no fevers, chills, does report a headache does report feeling short of breath, does report a history of osteoarthritis for which she is taking Celebrex daily, she is also on conjugated estrogens for postmenopausal symptoms, she also reports regular caffeine use Vitals/I&O/Wt Last Vital Signs Temp 97.8 F 03/30/23 07:33 Pulse 68 03/30/23 10:24 Resp 18 03/30/23 07:33 BP 155/62 03/30/23 10:24 Pulse Ox 98 03/30/23 07:33 O2 Del Method Room Air 03/30/23 07:33 03/29/23 03/30/23 03/30/23 22:59 06:59 14:59 Intake Total 1250 / 1250 Balance 1250 / 1250 Weight last 48 hrs Weight 80.24 kg Weight 80.24 kg Weight 76.204 kg Physical Exam 2 Const: COMMON NORMALS: no acute distress and patient oriented x3 Resp: COMMON NORMALS: normal respiratory effort, No retractions, No use of accessory muscles and clear to auscultation bilaterally AUSCULTATION: clear to auscultation bilaterally Cardio: COMMON NORMALS: regular rate, regular rhythm, S1 normal heart sound present and S2 normal heart sound present RATE: regular rate RHYTHM: r egular rhythm HEART SOUNDS: S1 normal heart sound present and S2 normal heart sound present GI: COMMON NORMALS: Normal to inspection, nondistended, normoactive bowel sounds present and non-tender Extremity: COMMON NORMALS: no pedal edema Neuro: COMMON NORMALS: patient oriented x3 Psych: COMMON NORMALS: mental status grossly normal Data 03/30/23 00:44 03/30/23 14:02 A&P Assessment and plan (1) Unstable angina: Presentation is consistent with suspected unstable angina in the setting of known coronary artery disease with prior stent to unknown artery in 2003 Positive delta troponin 29.45 N.p.o. for cardiac testing Complete echocardiogram Start therapeutic Lovenox Continue aspirin and statin Low threshold for cardiology consult (2) Hypertension: Hypertension complicated by hypertensive urgency Status post IV antihypertensives, blood pressure now soft Home medication list is still pending Monitor blood pressure closely, will likely need some titration Qualifiers: Hypertension type: unspecified Qualified Code(s): I10 - Essential (primary) hypertension (3) Bradycardia: Sinus bradycardia Could be related to increased metoprolol dosing Continuous telemetry monitoring Monitoring for worsening arrhythmia (4) Hyponatremia: Sodium 126, no recent comparison Possibly related to hydrochlorothiazide use, dehydration Patient reports she is on hydrochlorothiazide (home list not up-to-date yet) Will hold loop and thiazide diuretics until potassium improves Gentle IV fluids with normal saline Trend sodium every 6 hours (5) Diabetes: Suspected type 2 diabetes mellitus Sliding-scale insulin correction Avoid hypoglycemia (6) COPD (chronic obstructive pulmonary disease): Without exacerbation DuoNebs as needed Qualifiers: COPD type: unspecified COPD Qualified Code(s): J44.9 - Chronic obstructive pulmonary disease, unspecified Plan DVT prophylaxis: Lovenox CODE STATUS: Full code Plan for today patient continues to have headaches, give 50 mg p.o. tramadol, await stress testing, stress testing shows area of ischemia left circumflex territory, spoke to patient again this evening, she continues to have right- sided jaw pain now with chest pressure, plan on continued therapeutic Lovenox, will give her clear liquids for now, if she can tolerate advance to cardiac diet, plan on discussing with cardiology about potential coronary angiography, spoke to Dr. Pearce, plans on consultation possible coronary angiography based on shared decision making with patient, had a detailed discussion with patient about morbidity and mortality associate with coronary angiography, discussed intervention versus medical management Spoke to patient, spoke to patient's family, spoke to cardiology spoke to nursing staff reviewed admission note, reviewed prior notes Attestations 2 Medical Necessity Statement*: Patient requires hospitalization, inpatient, greater than 2 minutes for NSTEMI, persistent chest pain requiring cardiology consultation and possible coronary angiography, hyponatremia Diagnoses Unstable angina I20.0 Hypertension, unspecified type I10 Hypertension type: unspecified Bradycardia R00.1 Hyponatremia E87.1 Diabetes E11.9 Chronic obstructive pulmonary disease, unspecified COPD type J44.9 COPD type: unspecified COPD
[2023-03-30] MEDS: metoprolol tartrate 50 mg Tablet PO (17:18)
--- NOTE | 2023-03-30 17:19 | P.CONIM_ITS ---
Providers/Reason For Consult 2 Consulting Physician/Specialty*: Vipin Pearce MD/ Cardiology Reason for Consult*: NSTEMI Requesting Physician: Dr Bashir Attending Physician: Kendrick Bashir MD Primary Care Provider: Mitul Peters DO History of Present Illness History of Present Illness Nika Spears is a 72 year old female with past medical history of hypertension and CAD s/p PCI in 2003 and came to hospital with chest tightness, jaw and throat discomfort. This was associated with headache. Blood pressure was elevated. Her troponin trended up significantly from baseline of 15-49 at 6 hours. EKG is showing sinus bradycardia with ST depressions in inferior and lateral leads. Stress test was performed that shows a small area of ischemia in left circumflex artery territory. Patient continue having symptoms of jaw discomfort. Review of Systems 2 Const: Denies: fever(s) Eyes: Denies: change in vision ENMT: Reports: throat pain and dental pain Card: Reports: chest pain Resp: Reports: dyspnea GI: Denies: abdominal pain, vomiting, diarrhea or hematochezia Skin/Breast: Denies: rash Neuro: Denies: headache(s), weakness in extremities, dizziness or confusion Medications/Allergies Home Medications Medication Instructions Recorded Confirmed Last Taken Type atorvastatin 10 mg tablet 10 mg PO BEDTIME 08/12/19 03/30/23 Unknown History conjugated estrogens 0.625 mg 0.625 mg PO DAILY 08/12/19 03/30/23 Unknown History tablet (Premarin) pantoprazole 20 mg tablet,delayed 20 mg PO DAILY 08/12/19 03/30/23 Unknown History release (Protonix) amitriptyline 10 mg tablet 10 mg PO BEDTIME 09/12/19 03/30/23 Unknown History valsartan 160 mg tablet 160 mg PO BEDTIME 09/12/19 03/30/23 Unknown History aspirin 81 mg capsule 81 mg PO BID 01/15/21 03/30/23 Unknown History cetirizine 10 mg capsule 10 mg PO BEDTIME 01/15/21 03/30/23 Unknown History triamcinolone acetonide 0.1 % 1 applic topical DAILY PRN yeast 10/21/22 03/30/23 Unknown History topical ointment infection amlodipine 10 mg tablet 10 mg PO DAILY 30 days #30 tabs 03/31/23 Unknown Rx clonidine HCl 0.1 mg tablet 0.1 mg PO Q12H PRN sbp>180 or 03/31/23 Unknown Rx dbp>90 hold if hr<60 30 days #60 tabs metoprolol tartrate 25 mg tablet 50 mg (2 x 25 mg) PO BID 30 days 03/31/23 03/30/23 Unknown Rx #120 tabs Allergies Allergy/AdvReac Type Severity Reaction Status Date / Time No Known Allergies Allergy Verified 03/30/23 00:30 Current Medications Generic Name Dose Route Start Last Admin Trade Name Freq PRN Reason Stop Dose Admin Acetaminophen 650 mg 03/30/23 04:27 03/30/23 13:43 Acetaminophen 325 Mg Tablet PO 650 mg Q6H PRN Administration Mild/Mod Pain Or Temp >/= 101 Aminophylline 25 mg 03/30/23 06:36 03/30/23 10:17 Aminophylline 25 Mg/Ml Sdv 10 Ml IVP 03/31/23 06:35 25 mg Q2M PRN Administration see dose instructions Aspirin 81 mg 03/30/23 09:00 03/30/23 17:18 Aspirin 81 Mg Ec Tablet PO 81 mg BID LUIS M Administration Enoxaparin Sodium 70 mg 03/30/23 09:00 03/30/23 17:18 Enoxaparin 40 Mg/0.4 Ml Syringe SUBCUT 70 mg BID LUIS M Administration Sodium Chloride 1,000 mls @ 50 mls/hr 03/30/23 04:45 03/30/23 05:12 Sodium Chloride 0.9% IV 75 mls/hr .Q20H LUIS M Administration Metoprolol Tartrate 50 mg 03/30/23 18:00 03/30/23 17:18 Metoprolol Tartrate 50 Mg Tablet PO 50 mg Q12H LUIS M Administration Pantoprazole Sodium 40 mg 03/30/23 09:00 03/30/23 08:[address] 40 Mg Tablet PO 40 mg DAILY LUIS M Administration PFSH Acute 2 PFSH: Medical History Gingivitis Oral mucositis (ulcerative), unspecified Chronic cystitis Pelvic pain Osteopenia after menopause Alopecia of scalp Asthma Meniere disease Diabetes Joint pain Positive CYNTHIA (antinuclear antibody) COPD (chronic obstructive pulmonary disease) Hypertension GERD (gastroesophageal reflux disease) Cystitis Surgical History Hx of total knee arthroplasty History of total left knee replacement Status post hysterectomy Hx of heart artery stent Family History Grandmother CAD (coronary artery disease) Other Cancer Hypertension Denies family history of Rheumatoid arthritis Diabetes Lupus Hyperlipidemia Chronic kidney disease (CKD) Lung disease Stroke Social History Smoking and tobacco/nicotine status: never used tobacco/nicotine Alcohol intake: never Substance/Drug Use: unknown Adopted: No Caregiver/support person: No Lives independently: No Household members: spouse Marital status: Current occupational status: retired Vitals/I&O/Wt Last Vital Signs Temp 97.8 F 03/30/23 07:33 Pulse 67 03/30/23 15:43 Resp 15 03/30/23 15:43 BP 138/77 03/30/23 15:43 Pulse Ox 96 03/30/23 15:43 O2 Del Method Room Air 03/30/23 07:33 03/30/23 03/30/23 03/30/23 06:59 14:59 22:59 Intake Total 1250 / 1250 150 / 150 Balance 1250 / 1250 150 / 150 Weight last 48 hrs Weight 176 lb 14.4 oz Weight 176 lb 14.4 oz Weight 168 lb Physical Exam 2 Narrative: GENERAL: Patient is alert, awake and oriented x3. [] NECK: No jugular vein distension. [] HEENT: No cyanosis. No icterus. No pallor. [] HEART: Regular S1 and S2. No murmur, rub or gallop. [] LUNGS: Clear to auscultate bilaterally. [] CENTRAL NERVOUS SYSTEM: Grossly nonfocal. [] EXTREMITIES: Lower extremities with 1+ edema bilaterally. Data 03/31/23 04:46 03/31/23 04:46 A&P Assessment and plan (1) NSTEMI (non-ST elevated myocardial infarction): (2) Hypertension: Qualifiers: Hypertension type: unspecified Qualified Code(s): I10 - Essential (primary) hypertension (3) Bradycardia: (4) Diabetes: Plan Patient has presented with troponin elevation, chest tightness and jaw discomfort. Troponins have increased. Stress test is showing small sized abnormality however given continued symptoms, we will proceed with coronary angiogram with possible PCI. Risks and benefits of the procedure were discussed. She understands the risks and benefits and wants to proceed. Continue aspirin. N.p.o. past midnight Echo pending. Thank you for involving us with care of this patient. Will continue to follow. Please call with questions. Consult Attestations 2 Medical Necessity Statement: Care expected to cross 2 midnights. Coding Level of Care Code Acute Code for [facility] Diagnoses NSTEMI (non-ST elevated myocardial infarction) I21.4 Hypertension, unspecified type I10 Hypertension type: unspecified Bradycardia R00.1 Diabetes E11.9
[2023-03-30 20:41] LABS: Sodium 125 mmol/L (136-145)
[2023-03-30] MEDS: losartan 50 mg Tablet PO (20:45)
[2023-03-30] MEDS: atorvastatin 40 mg Tablet 10 MG PO (20:45)
[2023-03-30] MEDS: cetirizine 10 mg Tablet PO (20:46)
[2023-03-30] MEDS: amitriptyline 25 mg Tablet PO (20:46)
[2023-03-31] VITALS (25 sets, daily range): BP systolic 129–188; BP diastolic 59–100; PULSE 61–87; RESP 15–26; TEMP 36.6–36.8; O2SAT 95–97
--- NOTE | 2023-03-31 | XACV_ITS ---
Exam Room: [facility] Ht: 157 cm Wt: 84 kg BSA: 1.96 m2 Gender: Female : 1950 Any Known Allergies: No known allergies Exam Priority: Routine Procedure(s): Procedure Description: Diagnostic procedure Procedure Description: Left Heart Catheterization Procedure Description: Coronary Angiography Diagnostic Cath Status: Urgent Diagnostic Findings * Left Main has no significant disease. * Circumflex has mild luminal irregularities. * Right Coronary Artery has patent prior stent. Mild luminal irregularities. * LAD has diffuse moderate luminal irregularities. Mid Left Anterior Descending: mild 40% stenosis, CHACHO: 3 flow. * Coronary angiography shows right dominance. Conclusions 1. Non-obstructive CAD. Recommendations * Aggressive medical therapy. * Outpatient cardiology follow up in 4 weeks. Interventional RX Recommendation: medical therapy and/or counseling Diagnostic RX Recommendation: medical therapy and/or counseling Anticoagulation: Heparin Pressures Phase:Rest AO : 168 / 84 ( 121 ) @ 10:14:00 AM 145 / 72 ( 104 ) @ 10:15:00 AM 172 / 98 ( 131 ) @ 10:19:00 AM 198 / 78 ( 123 ) @ 10:23:00 AM 195 / 77 ( 123 ) @ 10:23:00 AM LV : 207 / -3 / 24 @ 10:23:00 AM 200 / -4 / 25 @ 10:23:00 AM Valves Phase:DefaultPhase AV : 5.0 @ 10:36:35 AM 5.0 @ 10:36:35 AM AV Mean Gradient: 13.0 @ 10:36:35 AM 13.0 @ 10:36:35 AM Clinical Evaluation EBL: 5mL-10mL Procedural Details Procedure Consent Obtained. Current Diagnosis : NSTEMI. Pre-Procedure Time Out. Identified patient by full name and date of as verbalized by the patient/guarantor. Does the consent match the physician's order: Yes. Accurate & Complete Informed Consent: Yes. Inpatient/Outpatient History & Physical on Chart: Yes. If H&P is completed, is and addenduem needed: No; If yes, is the addendum complete: N/A. Visualize and Verify Site with Patient/Guarantor: N/A. Relevant Radiology Images available: Yes. Pre-op teaching completed and patient verbalized understanding. The risks, benefits, and alternatives of sedation and/or procedure were discussed by physician. The patient agrees to continue. Procedure started. [facility] Clinical Fraility Score: 3: Managing Well. Interior Specialist Indications: ACS > 24 hours. Chest Pain Symptom Assessment: Atypical Angina. Correct patient, site and procedure confirmed by cath team. Current diagnosis: NSTEMI. PERRLA. Strong, equal hand security inspector bilaterally. Lungs clear x 5 lobes. IV Site on Arrival: 18 gauge in the left anticubital. IV Fluids: 0.9% NaCl at KVO. 0 mL infused prior to section laborer. Oxygen started at 2liters/min via nasal canula. right groin was prepped with chloroprep then draped in the usual sterile fashion. right radial was prepped with chloroprep then draped in the usual sterile fashion. Baseline sample Acquired. HR: 62 BPM. Physician notified. Physician arrived. Physician scrubbed in. Immediate Pre-Procedure Time Out. Correct Patient: Yes; Correct Procedure: Yes; Correct Site: Yes; Correct Patient Position: Yes; Correct Supplies: Yes; Dried Flammable Prep: Yes; Blood Products Available: Yes;. Lidocaine 1% infiltrated to the right radial. Arterial access obtained. Wire unable to advance. Wire and needle out. Arterial access obtained. A 5 bengali TIG catheter in over wire. Wire out. Contrast hand injected through the catheter. Glidewire inserted through the catheter. Multiple views taken of left coronary artery. Catheter redirected to the RCA. Catheter removed over the exchange wire. A 5 bengali JR4 catheter in over wire. Multiple views taken of right coronary artery. EDP Sample taken: LV 207/-4,24; HR: 77 BPM; SpO2: 98%. Pullback taken: LV 200/-5,25; AO 198/78(123); Mean: 13mmHg, Peak to Peak: 5mmHg, SEP: 25sec/min; HR: 77 BPM; SpO2: 98%. Catheter removed over the exchange wire. Physician scrubbed out. A TR Band was successful obtaining hemostatsis at the Right Radial artery insertion site. Post Procedure: Pulses reassessed and unchanged. PERRLA. Strong, equal hand security inspector bilaterally. No VTE prophylaxis required. Medication's Wasted: Heparin = 4000 units. Medication's Wasted: Nitro = 49.7 mg. Medication's Wasted: Lidocaine 1% = 2 mL. Medication's Wasted: Other = Fentanyl 50 mg. Total IV fluids: 50 mL. Complications: None. Estimated blood loss: 5mL-10mL. Responsiveness - Normal response to verbal stimuli; alert and oriented, PERRLA. Airway - Unaffected, no intervention required; spontaneous ventilation. Circulation: W/N/L, pulses unchanged. Nausea/Vomiting: No. Procedure completed. Patient transferred by bed to CPRU. Vital chart was stopped. Access Site Site: Right Radial artery Sheath Size: 6 Fr Hemostasis Method: TR Band Hemostasis Success: Successful Procedure Medications Start: 9:54 AM Stop: 9:54 AM Medication: Benadryl Amount: 50 mg Route: I.V. Start: 10:00 AM Stop: 10:00 AM Medication: Fentanyl Amount: 25 mcg Route: I.V. Start: 10:03 AM Stop: 10:03 AM Medication: Versed Amount: 1 mg Route: I.V. Start: 10:07 AM Stop: 10:07 AM Medication: Nitrogylcerin Amount: 300 mcg Route: I.A. Start: 10:08 AM Stop: 10:08 AM Medication: Versed Amount: 1 mg Route: I.V. Start: 10:11 AM Stop: 10:11 AM Medication: Fentanyl Amount: 25 mcg Route: I.V. Start: 10:13 AM Stop: 10:13 AM Medication: Heparin Amount: 5000 units Route: I.V. I, the attending physician, have reviewed and verified all procedure medications. Yes, all medications given per verbal order History/Risk Factors Hypertension: Yes Dyslipidemia: No Peripheral Arterial Disease (PAD): No Myocardial Infarction ([place]): No Obesity: No Renal Disease: No Tobacco Use: Never Prior Interventions PCI: No CABG: No Valve Surgery: No Report Signatures Finalized by Vipin Pearce MD on 04/12/2023 09:37 AM
[2023-03-31 05:20] LABS: Basophils # 0.1 10^3/uL (0.0-0.1); Basophils % 0.7 %; Eosinophils # 0.1 10^3/uL (0.0-0.8); Eosinophils % 1.6 %; Hematocrit 34.5 % (36-47); Lymphocytes # 2.4 10^3/uL (0.8-4.8); Lymphocytes % 28.4 %; Mean Corpuscular HGB Conc 33.9 g/dL (30-55); Mean Corpuscular Hemoglobin 30.7 pg (27-33); Mean Corpuscular Volume 90.6 fl (85-98); Mean Platelet Volume 9.1 fL (7.4-10.4); Monocytes # 0.9 10^3/uL (0.2-0.9); Neutrophils # 4.89 10^3/uL (1.8-7.7); Neutrophils % 57.4 %; Nucleated Red Blood Cells % 0 %; Platelet Count 263 10^3/cmm (157-399); Red Blood Count 3.81 10^6/uL (3.85-5.65); Red Cell Distribution Width 13.6 % (12.1-15.1); White Blood Count 8.53 10^3/uL (3.29-11.43)
[2023-03-31] MEDS: metoprolol tartrate 50 mg Tablet PO (05:42)
[2023-03-31 05:50] LABS: Anion Gap 17.8 (5-19); Blood Urea Nitrogen 23 mg/dL (8-23); Calcium 8.8 mg/dL (8.5-10.5); Carbon Dioxide 21 mmol/L (22-29); Chloride 94 mmol/L (98-107); Creatinine Clr Calc Pharmacy 42.1298; Glucose 98 mg/dL (65-115); Magnesium 1.7 mg/dL (1.7-2.3); Osmolality Calculated 272 mOsm/kg (285-295); Phosphorus 3.9 mg/dL (2.5-4.5); Potassium 3.8 mmol/L (3.5-5.1); Sodium 129 mmol/L (136-145)
[2023-03-31] MEDS: acetaminophen 325 mg Tablet 650 MG PO (07:50)
[2023-03-31] MEDS: aspirin 81 mg EC Tablet PO (07:51)
[2023-03-31] MEDS: pantoprazole DR 40 mg Tablet PO (07:51)
[2023-03-31] MEDS: sodium chloride 0.9% 1,000 ML 50 ML IV (07:51)
--- NOTE | 2023-03-31 10:01 | W.PM.OPSUD ---
Surgery/Procedure H&P Update DATE OF PROCEDURE: March 31, 2023 DATE H&P PERFORMED: 03/30/23 H&P UPDATE INFORMATION: I have reviewed H&P completed within last 30 days, I have examined patient prior to procedure and No changes to prior documentation PREOP DIAGNOSIS: NSTEMI/Abnormal stress test PRIMARY INDICATION FOR PROCEDURE: NSTEMI/Abnormal stress test PLANNED PROCEDURE: Left heart cath with possible percutaneous coronary intervention PATIENT REASSESSED PRIOR TO SEDATION, WITH NO CHANGE NOTED: Yes PHYSICAL EXAM: alert, oriented x 3, clear to auscultation bilaterally and regular rate & rhythm AIRWAY EVAL/ANESTHESIA PLAN: normal airway, ASA III, Local Anesthesia, Risks, benefits & alternatives of sedation and/or procedure discussed and Patient agrees to continue as planned
--- NOTE | 2023-03-31 10:59 | PC.NURSE ---
BP Patient SBP remains high. Dr. Pearce notified of HTN. Telephone orders received for 10mg IV hydralizine X 1 dose.
[2023-03-31] MEDS: hyDRALAzine 20 mg/mL INJ 1 mL 10 MG IVP (11:15)
--- NOTE | 2023-03-31 11:25 | P.PN_ITS ---
Subjective 2 Subjective: Patient doing well. No chest pain Vitals/I&O/Wt Last Vital Signs Temp 98.3 F 03/31/23 07:11 Pulse 61 03/31/23 11:00 Resp 19 H 03/31/23 11:00 BP 187/92 03/31/23 11:00 Pulse Ox 95 03/31/23 11:00 O2 Del Method Room Air 03/31/23 11:00 03/30/23 03/31/23 03/31/23 22:59 06:59 14:59 Intake Total 1000 / 1150 300 / 1450 Balance 1000 / 1150 300 / 1450 Weight last 48 hrs Weight 186 lb 9.6 oz Weight 176 lb 14.4 oz Weight 176 lb 14.4 oz Weight 168 lb Physical Exam 2 Narrative: GENERAL: Patient is alert, awake and oriented x3. [] NECK: No jugular vein distension. [] HEENT: No cyanosis. No icterus. No pallor. [] HEART: Regular S1 and S2. No murmur, rub or gallop. [] LUNGS: Clear to auscultate bilaterally. [] CENTRAL NERVOUS SYSTEM: Grossly nonfocal. [] EXTREMITIES: Lower extremities with 1+ edema bilaterally. Data 03/31/23 04:46 03/31/23 04:46 A&P Assessment and plan (1) NSTEMI (non-ST elevated myocardial infarction): (2) Hypertension: Qualifiers: Hypertension type: unspecified Qualified Code(s): I10 - Essential (primary) hypertension (3) Bradycardia: (4) Diabetes: Plan Coronary angiogram demonstrated nonobstructive CAD with mild to moderate mid LAD stenosis. Aggressive medical therapy recommended. ECHO shows normal LV systolic function Aggressive blood pressure control. Thank you for involving us with care of this patient. Patient is stable to be discharged from cardiology standpoint. Please call with questions. Attestations 2 Medical Necessity Statement*: Care expected to cross 2 midnights. Coding Level of Care Code Acute Code for [facility] Diagnoses NSTEMI (non-ST elevated myocardial infarction) I21.4 Hypertension, unspecified type I10 Hypertension type: unspecified Bradycardia R00.1 Diabetes E11.9
[2023-03-31] MEDS: fluticasone nasal spray 16gm Btl 2 SPRAY NASAL (11:49)
--- NOTE | 2023-03-31 12:39 | P.DS_ITS ---
Discharge Providers Date of Admission: 03/31/23 06:44 Date of Discharge: March 31, 2023 Attending Provider at Admission: Donn Li MD Attending Provider at Discharge: Kendrick Bashir MD Primary Care Provider: Mitul Peters DO Diagnoses at Discharge Discharge Diagnosis (1) Unstable angina: Status: Acute (2) Hypertension: Status: Acute Qualifiers: Hypertension type: unspecified Qualified Code(s): I10 - Essential (primary) hypertension (3) Bradycardia: Status: Acute (4) Hyponatremia: Status: Acute (5) Diabetes: Status: Acute (6) COPD (chronic obstructive pulmonary disease): Status: Acute Qualifiers: COPD type: unspecified COPD Qualified Code(s): J44.9 - Chronic obstructive pulmonary disease, unspecified Reason for Visit Reason for Visit: high bp pressure in neck/jaw headache Hospital Course Hospital Course Nika Spears is a 72 year old female with past medical history significant for coronary artery disease status post stent 2003, dyslipidemia, COPD, diabetes melitis type II, M?ni?re's disease, hypertension, and multiple medical comorbidities who presents emergency department with jaw and throat pain. Patient reports she was in her usual state of health until when she developed a headache. She states she took her blood pressure and it was markedly high. She is continue to take her blood pressure since that time and has remained elevated. She has a blood pressure log bedside. Review show some home blood pressures with SBP greater than 200 at times. She reports a history of hypertension and is on antihypertensives. She reports that she did take extra metoprolol due to elevated blood pressures. She is following with her primary care provider for blood pressure management. Patient reports to try to go to sleep tonight but she developed the throat/jaw pain which became increasingly worse prompting her to be evaluated. She denies any alleviating or aggravating factors. She notes that mastication does not worsen pain. She endorses a history of coronary artery disease. She states that she was treated with a stent in 2003 at [facility]. She denies having a heart attack at that time. She states at that time she was having left-sided substernal chest pain. She denies any such symptoms currently. She denies any ischemic workup including stress test or cardiac cath since that time. She denies any recent echocardiogram. 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 In the ED, patient was found to have sinus bradycardia and initially markedly elevated blood pressure. She received IV antihypertensives with subsequent borderline hypotension resulting. Labs revealed hyponatremia with sodium of 126. She reports she is on hydrochlorothiazide (home medication list has not been updated yet). BUN 23 and creatinine 1.2. No recent baseline labs in [facility]. Troponin T baseline of 18 ng/L with 2-hour troponin T of 19.19 ng/L yielding a delta troponin of only 1.19. NT proBNP was elevated at 696 pg/mL. Chest x-ray was negative for evidence of congestive heart failure or pneumonia. CT head was negative for acute findings, showing only sequela of microvascular disease. EKG showed sinus bradycardia with first-degree block as well as inferior lateral T wave depressions. No recent prior EKG available for comparison. Patient presents [facility] for chest pain, NSTEMI, underwent stress testing, showing positive stress test in the left circumflex territory, due to persistent chest pain, elevated troponin show underwent coronary angiography which did not show any evidence of obstructive CAD, discharged on aspirin, statin, beta-rubina with close follow-up with cardiology as outpatient For her hypertension, discharged on metoprolol 50 twice daily continue home valsartan, added Norvasc 10 mg once daily, clonidine as needed for systolic blood pressure greater than 180 diastolic greater than 90, follow-up with primary care provider in 1 week for blood pressure check For hyponatremia likely a combination related dehydration, hydrochlorothiazide use, discontinue hydrochlorothiazide use on discharge, serum sodium 129 on discharge follow-up with primary care for serum sodium check in 1 week Patient was advised if she has any recurrent chest pain to go to emergency room Physical Exam Const: COMMON NORMALS: no acute distress and patient oriented x3 Resp: COMMON NORMALS: normal respiratory effort, No retractions, No use of accessory muscles and clear to auscultation bilaterally AUSCULTATION: clear to auscultation bilaterally Cardio: COMMON NORMALS: regular rate, regular rhythm, S1 normal heart sound present and S2 normal heart sound present RATE: regular rate RHYTHM: regular rhythm HEART SOUNDS: S1 normal heart sound present and S2 normal heart sound present GI: COMMON NORMALS: Normal to inspection, nondistended, normoactive bowel sounds present and non-tender Extremity: COMMON NORMALS: no clubbing, cyanosis or edema and no pedal edema Neuro: COMMON NORMALS: patient oriented x3 Psych: COMMON NORMALS: mental status grossly normal Discharge Data Studies Completed and Pending Completed Studies During Hospitalization Category Date Time Status CT head wo con* [id number] Stat Cat Scan 03/30/23 00:37 Completed Cardiac Stress Test MIBI [Sestamibi Stress Test Request Exams 03/30/23 04:44 Draft ] Routine XR chest 1V portable [id number] Stat Exams 03/30/23 00:37 Completed NM kevin perf SPECT r/s* [id number] Routine Nuc Med 03/30/23 04:44 Completed CV. echo complete* [id number] Routine Ultrasound 03/30/23 04:43 Completed Pending at discharge Category Date Time Status STEEL MANAGER request for service Routine Exams 03/31/23 06:50 Ordered Radiology Impressions Chest X-Ray 03/30/23 00:37 IMPRESSION: 1. No definite CHF or pneumonia. 2. Other findings discussed above. Head CT 03/30/23 00:37 IMPRESSION: 1. No acute intracranial hemorrhage or mass effect. 2. Changes of microvascular disease. 3. No definite acute infarct by CT, see above. 4. Other findings discussed above. Laboratory Results WBC 8.53 10^3/uL (3.29-11.43) 03/31/23 04:46 RBC 3.81 10^6/uL (3.85-5.65) L 03/31/23 04:46 Hgb 11.70 g/dL (11.27-16.99) 03/31/23 04:46 Hct 34.5 % (36-47) L 03/31/23 04:46 MCV 90.6 fl (85-98) 03/31/23 04:46 MCH 30.7 pg (27-33) 03/31/23 04:46 MCHC 33.9 g/dL (30-55) 03/31/23 04:46 RDW 13.6 % (12.1-15.1) 03/31/23 04:46 Plt Count 263 10^3/cmm (157-399) 03/31/23 04:46 MPV 9.1 fL (7.4-10.4) 03/31/23 04:46 Neut % (Auto) 57.4 % 03/31/23 04:46 Lymph % (Auto) 28.4 % 03/31/23 04:46 [place] % (Auto) 11.0 % 03/31/23 04:46 Eos % (Auto) 1.6 % 03/31/23 04:46 Baso % (Auto) 0.7 % 03/31/23 04:46 Neut # (Auto) 4.89 10^3/uL (1.8-7.7) 03/31/23 04:46 Lymph # (Auto) 2.4 10^3/uL (0.8-4.8) 03/31/23 04:46 [place] # (Auto) 0.9 10^3/uL (0.2-0.9) 03/31/23 04:46 Eos # (Auto) 0.1 10^3/uL (0.0-0.8) 03/31/23 04:46 Baso # (Auto) 0.1 10^3/uL (0.0-0.1) 03/31/23 04:46 Nucleated RBC % (auto) 0 % 03/31/23 04:46 Nucleated RBCs # 0.0 /100WBC 03/31/23 04:46 Sodium 129 mmol/L (136-145) L 03/31/23 04:46 Potassium 3.8 mmol/L (3.5-5.1) 03/31/23 04:46 Chloride 94 mmol/L (98-107) L 03/31/23 04:46 Carbon Dioxide 21 mmol/L (22-29) L 03/31/23 04:46 Anion Gap 17.8 (5-19) 03/31/23 04:46 BUN 23 mg/dL (8-23) 03/31/23 04:46 Creatinine 1.2 mg/dL (0.5-0.9) H 03/31/23 04:46 GFR Calculation Not Reportable 03/31/23 04:46 Glucose 98 mg/dL (65-115) 03/31/23 04:46 Estimat Average Glucose 134 03/30/23 00:44 Hemoglobin A1c 6.3 % (4.0-6.0) H 03/30/23 00:44 Calculated Osmolality 272 mOsm/kg (285-295) L 03/31/23 04:46 Calcium 8.8 mg/dL (8.5-10.5) 03/31/23 04:46 Phosphorus 3.9 mg/dL (2.5-4.5) 03/31/23 04:46 Magnesium 1.7 mg/dL (1.7-2.3) 03/31/23 04:46 Total Bilirubin 0.3 mg/dL (0.15-1.2) 03/30/23 00:44 AST 26 U/L (0-32) 03/30/23 00:44 ALT 27 U/L (0-33) 03/30/23 00:44 Alkaline Phosphatase 72 U/L (35-105) 03/30/23 00:44 Troponin T Baseline 18 ng/L (0-10) H 03/30/23 00:44 Troponin T 120 Minute 19.19 ng/L (0-10) H 03/30/23 02:21 Delta Troponin T 1.19 ABS# (0-10) 03/30/23 02:21 Troponin T Hi Sens 6Hr 47.45 ng/L (0-10) H 03/30/23 06:50 Troponin T Hi Sens 6Hr Delta 29.45 ng/L (0-12) H* 03/30/23 06:50 NT-Pro-B Natriuret Pep 696 pg/mL (0-125) H 03/30/23 00:44 Total Protein 7.0 g/dL (6.6-8.7) 03/30/23 00:44 Albumin 4.1 g/dL (3.5-5.2) 03/30/23 00:44 Globulin 2.9 g/dL (1.3-4.6) 03/30/23 00:44 Triglycerides 165 mg/dL (0-150) H 03/30/23 02:21 Cholesterol 166 mg/dL (0-200) 03/30/23 02:21 LDL Cholesterol, Calc 52 mg/dL (50-129) 03/30/23 02:21 HDL Cholesterol 81 mg/dL (60-100) 03/30/23 02:21 LDL/HDL Ratio 0.64 RATIO (0.00-3.22) 03/30/23 02:21 Cholesterol/HDL Ratio 2.05 mg/dL (0.0-4.40) 03/30/23 02:21 TSH 6.01 uIU/mL (0.27-4.20) H 02/12/24 02:21 Free T4 1.21 ng/dL (0.82-1.77) 03/30/23 00:44 Free T3 3.1 PG/ML (2.0-4.4) 03/30/23 00:44 Urine Color Yellow (Yellow) 03/30/23 08:28 Urine Appearance Clear (CLEAR) 03/30/23 08:28 Urine pH 7 (5-7) 03/30/23 08:28 Ur Specific [place] 1.000 (1.005-1.030) L 03/30/23 08:28 Urine Protein Neg (Negative) 03/30/23 08:28 Urine Glucose (UA) Norm (Normal) 03/30/23 08:28 Urine Ketones Negative (Negative) 03/30/23 08:28 Urine Blood Neg (Negative) 03/30/23 08:28 Urine Nitrate Negative (Negative) 03/30/23 08:28 Urine Bilirubin Neg (Negative) 03/30/23 08:28 Urine Urobilinogen Neg mg/dL (Negative) 03/30/23 08:28 Ur Leukocyte Esterase Negative (Negative) 03/30/23 08:28 Vitals Last Vital Signs Temp 98.1 F 03/31/23 11:46 Pulse 69 03/31/23 12:30 Resp 17 03/31/23 12:30 BP 149/82 03/31/23 12:30 Pulse Ox 96 03/31/23 12:30 O2 Del Method Room Air 03/31/23 11:46 Discharge Plan Discharge Patient Disposition: Home Condition: Stable Prescriptions: New amlodipine 10 mg Tablet 10 mg PO DAILY 30 Days Qty: 30 0RF clonidine HCl 0.1 mg tablet 0.1 mg PO Q12H PRN (Reason: sbp>180 or dbp>90 hold if hr<60) 30 Days Qty: 60 0RF Continued Premarin 0.625 mg tablet 0.625 mg PO DAILY atorvastatin 10 mg tablet 10 mg PO BEDTIME pantoprazole [Protonix] 20 mg tablet,delayed release (DR/EC) 20 mg PO DAILY amitriptyline 10 mg tablet 10 mg PO BEDTIME valsartan 160 mg tablet 160 mg PO BEDTIME triamcinolone acetonide 0.1 % ointment 1 applic topical DAILY PRN (Reason: yeast infection) cetirizine 10 mg Capsule 10 mg PO BEDTIME aspirin 81 mg Capsule 81 mg PO BID Changed metoprolol tartrate 25 mg tablet 50 mg PO BID 30 Days Qty: 120 0RF Discontinued celecoxib 200 mg capsule 200 mg PO BEDTIME Discharge Orders: Discharge Order (Routine); Ordered 03/31/23 Ordered By: Kendrick Bashir Referrals: Candy Lawson FNP [Nurse Practitioner] - 04/13/23 3:00 pm Mitul Peters DO [Primary Care Provider] - 04/07/23 2:40 pm Discharge Diet: Cardiac Discharge Activity: Resume usual activity Patient Instructions: Opioid Safety Activity Restrictions/Additional Instructions: -please see primary care, for blood pressure check, and recheck serum sodium -if any chest pain go to emergency room Discharge Attestations Time Spent in Discharge Care*: greater than 30 min Quality Metrics Clinical Quality Measures [ No reported AMI, CVA or VTE this stay] Coding Level of Care Code 17680 Total time (in minutes) for Discharge: 45 Diagnoses Unstable angina I20.0 Hypertension, unspecified type I10 Hypertension type: unspecified Bradycardia R00.1 Hyponatremia E87.1 Diabetes E11.9 Chronic obstructive pulmonary disease, unspecified COPD type J44.9 COPD type: unspecified COPD
[2023-03-31] MEDS: amlodipine 10 mg Tablet PO (12:55)
--- NOTE | 2023-03-31 13:08 | PC.NURSE ---
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
--- NOTE | 2023-03-31 16:36 | PC.NURSE ---
TR band removal 1320 -2ml 1350 -2ml 1415 -2ml 1440 -2ml 1505 -2ml 1530 -2ml 1555 -2ml 1615 -2ml TR was off and dressing applied
[2023-04-02 07:32] LABS: Estmated Average Glucose 111; Hemoglobin A1C 5.5 % (4.0-6.0)
== END 2023-03-31 16:45 | disposition home or self-care (01) | DRG 281 ==
LOC: ER 03-30 00:38 → CSU 03-30 04:02
PROVIDERS: Internal Medicine; Admitting Provider Internal Medicine; Emergency Provider Emergency Medicine; PCP Electrodiagnostic Medicine; Visit Provider Family Medicine
PROC: 4A023N7 Measurement of Cardiac Sampling and Pressure, Left Heart, Percutaneous Approach (ICD-10-PCS; principal; 2023-03-31 10:40)
DX: I21.4 Non-ST elevation (NSTEMI) myocardial infarction (principal); E87.1 Hypo-osmolality and hyponatremia; I25.110 Atherosclerotic heart disease of native coronary artery with unstable angina pectoris; Z95.5 Presence of coronary angioplasty implant and graft; E78.5 Hyperlipidemia, unspecified; J44.9 Chronic obstructive pulmonary disease, unspecified; E11.9 Type 2 diabetes mellitus without complications; H81.09 Meniere's disease, unspecified ear; I16.0 Hypertensive urgency; I10 Essential (primary) hypertension; M85.80 Other specified disorders of bone density and structure, unspecified site; L65.9 Nonscarring hair loss, unspecified; K21.9 Gastro-esophageal reflux disease without esophagitis; M19.90 Unspecified osteoarthritis, unspecified site; E86.0 Dehydration; R00.1 Bradycardia, unspecified; I44.0 Atrioventricular block, first degree
CPT/HCPCS: 36415; 70450; 71045; 78452; 80048; 80053; 80061; 81003; 83036; 83735; 83880; 84100; 84295; 84439; 84443; 84481; 84484; 85025; 93005; 93017; 93306; 93458; 96365; 96372; 96374; 96375; 99152; 99153; 99285; A9500; C1769; C1887; C1894; G0378; J0280; J0360; J1200; J1644; J1650; J2250; J2785; J3010; J3490; J7030; J7040; Q9967

== ENCOUNTER → 2023-04-13 14:44 | Outpatient (BNVA) | payer MEDICARE, SELFPAY | PROVIDERS: PCP Electrodiagnostic Medicine; Visit Provider Nurse Practitioner Family | DX: I25.10 Atherosclerotic heart disease of native coronary artery without angina pectoris (principal); I10 Essential (primary) hypertension | CPT/HCPCS: 99213 ==

== ENCOUNTER 2023-06-08 09:50 | Outpatient (CLI) | payer MEDICARE, SELFPAY ==
[2023-06-08 10:57] LABS: Anion Gap 12.6 (5-19); Blood Urea Nitrogen 25 mg/dL (8-23); Calcium 9.3 mg/dL (8.5-10.5); Carbon Dioxide 22 mmol/L (22-29); Chloride 93 mmol/L (98-107); Glucose 127 mg/dL (65-115); NT Pro B Type Natriuretic Pept 634 pg/mL (0-125); Osmolality Calculated 264 mOsm/kg (285-295); Potassium 3.6 mmol/L (3.5-5.1); Sodium 124 mmol/L (136-145)
== END 2023-06-08 09:51 | disposition home or self-care (01) ==
PROVIDERS: PCP Electrodiagnostic Medicine; Visit Provider Nurse Practitioner Family
DX: I10 Essential (primary) hypertension (principal)
CPT/HCPCS: 36415; 80048; 83880

== ENCOUNTER → 2023-10-12 15:27 | Outpatient (BNVA) | payer MEDICARE, SELFPAY | PROVIDERS: PCP Electrodiagnostic Medicine; Visit Provider Internal Medicine | DX: I25.10 Atherosclerotic heart disease of native coronary artery without angina pectoris (principal); I10 Essential (primary) hypertension; E87.1 Hypo-osmolality and hyponatremia; Z87.891 Personal history of nicotine dependence | CPT/HCPCS: 99213 ==

== ENCOUNTER 2024-03-02 09:14 | Outpatient (CLI) | payer MEDICARE, SELFPAY ==
--- NOTE | 2024-03-02 | MM_ITS ---
WS: [id number] BILATERAL SCREENING DIGITAL TOMOSYNTHESIS MAMMOGRAM WITH CAD HISTORY: ANNUAL SCREENING COMPARISON: 05/27/2022, 05/23/2021 Bilateral CC and MLO views with tomosynthesis and synthetic mammography submitted. Computer aided det ection analyzed. Breast composition: The breasts are heterogeneously dense, which may obscure small masses. No suspici ous masses, microcalcifications or architectural distortion. Scattered benign calcifications. MM/MM scr tomosynthesis [id number] IMPRESSION: BI-RADS: 2 - Benign FOLLOW UP: 1 Year Follow-up
== END 2024-03-02 09:15 | disposition home or self-care (01) ==
LOC: RAD 09:15
PROVIDERS: PCP Electrodiagnostic Medicine; Visit Provider Electrodiagnostic Medicine
DX: Z12.31 Encounter for screening mammogram for malignant neoplasm of breast (principal); R92.333 Mammographic heterogeneous density, bilateral breasts; R92.1 Mammographic calcification found on diagnostic imaging of breast
CPT/HCPCS: 77063; 77067

== ENCOUNTER 2024-03-06 11:21 | Emergency (ER) | payer MEDICARE, SELFPAY ==
[2024-03-06 11:23] VITALS: BP 124/68; PULSE 64; RESP 18; TEMP 36.8; O2SAT 96; BMI 30.1
--- NOTE | 2024-03-06 11:35 | XRR_ITS ---
PROCEDURE INFORMATION: Exam: XR Right Ribs with PA Chest Exam date and time: 03/06/2024 11:37 AM Age: 73 years old Clinical indication: Chest wall pain; Right; Patient HX: RT lower rib/abdomen pain post fall TECHNIQUE: Imaging protocol: Radiologic exam of the right ribs with PA chest. Views: 3 views COMPARISON: CR XR chest 2V* [id number] 06/02/2023 11:02 AM FINDINGS: Lungs: Unremarkable. No consolidation. Pleural spaces: Unremarkable. No pleural effusion. No pneumothorax. Heart/Mediastinum: Unremarkable. No cardiomegaly. Vasculature: There are aortic arch calcifications. Bones/joints: Unremarkable. XR/XR ribs RT mn 3V w CXR1V [id number] IMPRESSION: No acute cardiopulmonary process.
[2024-03-06 11:36] VITALS: BP 142/76; RESP 18; O2SAT 98
--- NOTE | 2024-03-06 11:36 | ED_ITS ---
HPI - Fall 2 General: Chief Complaint: Fall Stated Complaint: back pain Time Seen by Provider: 03/06/24 11:31 Source: patient Mode of arrival: ambulatory Limitations: no limitations History of Present Illness: 73-year-old female who states that she f ell on Thursday in a parking lot landed on her right ribs she has been having pain to the right posterior ribs and right lateral ribs. States it is painful to touch she denies hitting her head denies any neck pain she denies any abdominal pain. States her pain is currently a 5 out of 10 Associated symptoms-after fall: Reports abdominal pain and chest pain; Denies headache(s) or neck pain Related Data Home Medications Medication Instructions Recorded Confirmed pantoprazole 20 mg tablet,delayed 20 mg PO DAILY 08/12/19 03/06/24 release (Protonix) amitriptyline 10 mg tablet 10 mg PO BEDTIME 09/12/19 03/06/24 cetirizine 10 mg capsule 10 mg PO BEDTIME 01/15/21 03/06/24 aspirin 81 mg capsule 162 mg PO DAILY 10/12/23 03/06/24 hydralazine 50 mg tablet 50 mg PO BID 10/12/23 03/06/24 albuterol sulfate 90 mcg/actuation 1 inh inhalation BID 03/06/24 03/06/24 aerosol inhaler atorvastatin 20 mg tablet 20 mg PO DAILY 03/06/24 03/06/24 fluticasone furoate 100 1 inh inhalation DAILY 03/06/24 03/06/24 mcg-vilanterol 25 mcg/dose inhalation powder (Breo Ellipta) fluticasone propionate 50 1 spray intranasal BID 03/06/24 03/06/24 mcg/actuation nasal spray,suspension metoprolol tartrate 100 mg tablet 100 mg PO BID 03/06/24 03/06/24 tramadol 50 mg tablet 50 mg PO BID 03/06/24 03/06/24 Previous Rx's Medication Instructions Recorded valsartan 160 mg tablet 160 mg PO BID #180 tabs 10/12/23 furosemide 20 mg tablet 20 mg PO DAILY #90 tabs 12/25/23 hydrocodone 5 mg-acetaminophen 325 1 tab PO Q6H PRN pain #14 tabs 03/06/24 mg tablet Allergies Allergy/AdvReac Type Severity Reaction Status Date / Time amlodipine Allergy Severe ADR/ALGY-Flushing/Facial Verified 03/06/24 11:30 swelling Review of Systems 2 Const: Denies: fever(s), chills, body aches or change in appetite Eyes: Denies: eye discomfort ENMT: Denies: throat pain or dental pain Card: Reports: chest pain Resp: Denies: dyspnea GI: Reports: abdominal pain; Denies: nausea, vomiting or diarrhea Musc: Denies: neck pain or back pain Skin/Breast: Denies: rash Neuro: Denies: headache(s) PFSH ED 2 PFSH: Medical History Coronary artery disease Gingivitis Oral mucositis (ulcerative), unspecified Chronic cystitis Pelvic pain Osteopenia after menopause Alopecia of scalp Asthma Meniere disease Diabetes Joint pain Positive CYNTHIA (antinuclear antibody) COPD (chronic obstructive pulmonary disease) Hypertension GERD (gastroesophageal reflux disease) Cystitis Surgical History Hx of total knee arthroplasty History of total left knee replacement Status post hysterectomy Hx of heart artery stent Family History Grandmother CAD (coronary artery disease) Other Cancer Hypertension Denies family history of Rheumatoid arthritis Diabetes Lupus Hyperlipidemia Chronic kidney disease (CKD) Lung disease Stroke Social History Smoking and tobacco/nicotine status: former use of tobacco/nicotine Alcohol intake: never Substance/Drug Use: unknown Adopted: No Caregiver/support person: No Lives independently: No Household members: spouse Marital status: Current occupational status: retired Physical Exam 2 Const: COMMON NORMALS: no acute distress, patient oriented x3 and healthy appearing HENMT: COMMON NORMALS: normocephalic and atraumatic HEAD & SCALP: n ormocephalic and atraumatic Eye: COMMON NORMALS: conjunctivae normal CONJUNCTIVA: Yes conjunctivae normal Neck/C-Spine: COMMON NORMALS: full ROM and supple CERVICAL SPINE: Yes cervical ROM normal and No Cervical spine tenderness Chest: COMMONS NORMALS: normal inspection of the chest OTHER: tenderness to right chest wall Resp: COMMON NORMALS: normal respiratory effort, No retractions, No use of accessory muscles and clear to auscultation bilaterally AUSCULTATION: clear to auscultation bilaterally Cardio: COMMON NORMALS: regular rate, regular rhythm and No murmurs present (Cardio) RATE: regular rate RHYTHM: regular rhythm GI: COMMON NORMALS: Normal to inspection, nondistended, normoactive bowel sounds present, Soft to palpation, non-tender and no masses PALPATION: Yes Soft to palpation Extremity: COMMON NORMALS: normal to inspection and full ROM Neuro: COMMON NORMALS: patient oriented x3, moves all extremities and no focal motor deficits Psych: COMMON NORMALS: mental status grossly normal, Normal thought process present and cooperative THOUGHT PROCESS: Normal thought process present Skin: COMMON NORMALS: no rashes or lesions noted and no wounds GENERAL SKIN EXAM: no rashes or lesions noted Course 2 Vital Signs: Vital signs: Vital Signs Temperature 98.2 F 03/06/24 11:23 Pulse Rate 64 03/06/24 11:23 Respiratory Rate 18 03/06/24 11:36 Blood Pressure 142/76 03/06/24 11:36 Pulse Oximetry 98 03/06/24 11:36 Oxygen Delivery Me thod Room Air 03/06/24 11:36 MDM - Fall Medical Decision Making Patient presents here after a fall does have a thoracic compression fracture no cord compression her pains improved here we will get her follow-up with orthopedics she is to return if worsening will prescribe her pain meds. Medical Records I reviewed the patient's medical records. Lab Data I reviewed the patient's lab results. 03/06/24 12:29 03/06/24 12:29 Radiology Impressions Ribs X-Ray 03/06/24 11:35 IMPRESSION: No acute cardiopulmonary process. Chest/Abdomen/Pelvis CT 03/06/24 11:54 IMPRESSION: Moderate compression deformity of the T8 vertebral body with no retropulsion or epidural hematoma. IMPRESSION: No acute posttraumatic changes in the abdomen and pelvis Laboratory Results WBC 7.70 10^3/uL (3.29-11.43) 03/06/24 12:29 RBC 3.28 10^6/uL (3.85-5.65) L 03/06/24 12:29 Hgb 9.90 g/dL (11.27-16.99) L 03/06/24 12: Hct 30.7 % (36-47) L 03/06/24 12: MCV 93.6 fl (85-98) 03/06/24 12: MCH 30.2 pg (27-33) 03/06/24 12: MCHC 32.2 g/dL (30-55) 03/06/24 12: RDW 13.2 % (12.1-15.1) 03/06/24 12: Plt Count 281 10^3/cmm (157-399) 03/06/24 12: MPV 8.7 fL (7.4-10.4) 03/06/24 12: Neut % (Auto) 73.8 % 03/06/24 12: Lymph % (Auto) 9.4 % 03/06/24 12: Cottle % (Auto) 13.1 % 03/06/24 12: Eos % (Auto) 1.6 % 03/06/24 12: Baso % (Auto) 0.5 % 03/06/24 12: Neut # (Auto) 5.69 10^3/uL (1.8-7.7) 03/06/24 12: Lymph # (Auto) 0.7 10^3/uL (0.8-4.8) L 03/06/24 12: Cottle # (Auto) 1.0 10^3/uL (0.2-0.9) H 03/06/24 12: Eos # (Auto) 0.1 10^3/uL (0.0-0.8) 03/06/24 12: Baso # (Auto) 0.0 10^3/uL (0.0-0.1) 03/06/24 12: Nucleated RBC % (auto) 0 % 03/06/24 12: Nucleated RBCs # 0.0 /100WBC 03/06/24 12: Urine Color Yellow (Yellow) 03/06/24 11:40 Urine Appearance Clear (CLEAR) 03/06/24 11:40 Urine pH 6.5 (5-7) 03/06/24 11:40 Ur Specific [place] 1.005 (1.005-1.030) 03/06/24 11:40 Urine Protein Negative (Negative) 03/06/24 11:40 Urine Glucose (UA) Negative (Normal) 03/06/24 11:40 Urine Ketones Negative (Negative) 03/06/24 11:40 Urine Blood Negative (Negative) 03/06/24 11:40 Urine Nitrate Negative (Negative) 03/06/24 11:40 Urine Bilirubin Negative (Negative) 03/06/24 11:40 Urine Urobilinogen 0.2 mg/dL (Negative) 03/06/24 11:40 Ur Leukocyte Esterase Negative (Negative) 03/06/24 11:40 Urine RBC 0-2 /hpf (0-2) 03/06/24 11:40 Urine WBC 0-5 /hpf (0-5) 03/06/24 11:40 Ur Squamous Epith Cells 0-5 /hpf (0-5) 03/06/24 11:40 Urine Bacteria None seen /hpf (NONE) 03/06/24 11:40 Hyaline Casts 0-4 /lpf H 03/06/24 11:40 All radiology interpretation(s) finalized by discharge Discharge Plan Discharge Patient Disposition: Home Clinical Impression: Compression fracture Condition: Stable Prescriptions: New hydrocodone-acetaminophen 5-325 mg tablet 1 tab PO Q6H PRN (Reason: pain) Qty: 14 0RF No Action pantoprazole [Protonix] 20 mg tablet,delayed release (DR/EC) 20 mg PO DAILY amitriptyline 10 mg tablet 10 mg PO BEDTIME hydralazine 50 mg tablet 50 mg PO BID valsartan 160 mg tablet 160 mg PO BID Qty: 180 3RF furosemide 20 mg tablet 20 mg PO DAILY Qty: 90 3RF cetirizine 10 mg Capsule 10 mg PO BEDTIME aspirin 81 mg capsule 162 mg PO DAILY atorvastatin 20 mg tablet 20 mg PO DAILY metoprolol tartrate 100 mg tablet 100 mg PO BID tramadol 50 mg tablet 50 mg PO BID albuterol sulfate 90 mcg/actuation HFA aerosol inhaler 1 inh INHALATION BID fluticasone propionate 50 mcg/actuation spray,suspension 1 spray INTRANASAL BID fluticasone furoate-vilanterol [Breo Ellipta] 100-25 mcg/dose blister with device 1 inh INHALATION DAILY Discharge Orders: Discharge ED (Routine); Ordered 03/06/24 Ordered By: Haroon Mendez Referrals: Meliton Emerson DO [Physician] - 1-3 days Mitul Peters DO [Primary Care Provider] - Discharge Diet: Advance as tolerated Discharge Activity: Resume usual activity Patient Instructions: Vertebral Compression Fracture (ED), Opioid Safety Coding Level of Care Code ED [facility] [employer] [facility] for Johnathan Godoy
[2024-03-06 11:49] LABS: Bilirubin Urine Negative (Negative); Blood Urine Negative (Negative); Glucose Urine UA Negative (Normal); Ketones Urine Negative (Negative); Leukocyte Esterase Urine Negative (Negative); Nitrate Urine Negative (Negative); Protein Urine Negative (Negative); Specific Gravity, Urine 1.005 (1.005-1.030); Urine Appearance Clear (CLEAR); Urine Color Yellow (Yellow); Urobilinogen Urine 0.2 mg/dL (Negative); pH Urine 6.5 (5-7)
--- NOTE | 2024-03-06 11:54 | CTR_ITS ---
PROCEDURE INFORMATION: Exam: CT Chest With Contrast; Diagnostic Exam date and time: 03/06/2024 12:07 PM Age: 73 years old Clinical indication: Injury or trauma; Fall; Blunt TECHNIQUE: Imaging protocol: Diagnostic computed tomography of the chest with contrast. Radiation optimization: All CT scans at this facility use at least one of these dose optimization techniques: automated exposure control; mA and/or kV adjustment per patient size (includes targeted exams where dose is matched to clinical indication); or iterative reconstruction. Contrast material: OMNI 350; Contrast volume: 100 ml; Contrast route: INTRAVENOUS (IV); COMPARISON: CR XR ribs RT mn 3V w CXR1V [id number] 03/06/2024 11:37 AM RADIATION DOSE METRICS: Total DLP (mGy-cm): 1148.09 FINDINGS: Lungs: Calcified granulomas in the right lower lobe. Atelectatic changes in the dependent portions of both lower lobes. Pleural spaces: Unremarkable. No pneumothorax. No pleural effusion. Heart: Unremarkable. No cardiomegaly. No pericardial effusion. Lymph nodes: Unremarkable. No enlarged lymph nodes. Vasculature: Unremarkable. No aortic aneurysm. Bones/joints: The thoracic spine demonstrates mild degenerative changes at multiple levels. Moderate compression deformity of the T8 vertebral body. Soft tissues: Unremarkable. PROCEDURE INFORMATION: Exam: CT Abdomen And Pelvis With Contrast Exam date and time: 03/06/2024 12:07 PM Age: 73 years old Clinical indication: Injury or trauma; Fall; Blunt TECHNIQUE: Imaging protocol: Computed tomography of the abdomen and pelvis with contrast. Radiation optimization: All CT scans at this facility use at least one of these dose optimization techniques: automated exposure control; mA and/or kV adjustment per patient size (includes targeted exams where dose is matched to clinical indication); or iterative reconstruction. Contrast material: OMNI 350; Contrast volume: 100 ml; Contrast route: INTRAVENOUS (IV); COMPARISON: CR XR KUB [id number] 08/12/2019 4:37 PM RADIATION DOSE METRICS: Total DLP (mGy-cm): 1148.09 FINDINGS: Liver: Normal. No mass. Gallbladder and biliary ducts: Normal. No calcified stones. No ductal dilation. Pancreas: Normal. No ductal dilation. Spleen: Normal. No splenomegaly. Adrenal glands: Normal. No mass. Kidneys and ureters: 2 mm nonobstructing stone in the interpolar region of the right kidney. 1 mm nonobstructing stone in the interpolar region of the left kidney. There is no evidence of hydronephrosis. Stomach and bowel: Unremarkable. No obstruction. No mucosal thickening. Appendix: No evidence of appendicitis. Intraperitoneal space: Unremarkable. No free air. No significant fluid collection. Vasculature: Vascular calcifications. Lymph nodes: Unremarkable. No enlarged lymph nodes. Urinary bladder: Unremarkable as visualized. Reproductive: Unremarkable as visualized. Bones/joints: There are mild degenerative changes of the sacroiliac joints. There are mild degenerative changes of the hip joints. The pubic symphysis demonstrates mild degenerative changes. Bilateral L4-L5 facet joint arthropathy with mild anterolisthesis of L4 over L5. Severe bony canal stenosis at L4-L5. Soft tissues: Unremarkable. CT/CT chest abdpel w/*[id number] IMPRESSION: Moderate compression deformity of the T8 vertebral body with no retropulsion or epidural hematoma. IMPRESSION: No acute posttraumatic changes in the abdomen and pelvis
[2024-03-06 11:58] LABS: Add Urine Microscopic? YES; Bacteria Urine None Seen /hpf; Hyaline Casts Urine 0-4 /lpf; RBC Urine 0-2 /hpf (0-2); Squamous Epithelial Cell Urine 0-5 /hpf (0-5); WBC Urine 0-5 /hpf (0-5)
[2024-03-06] MEDS: HYDROcodone-acetaminophen 5-325 mg Tablet 1 TAB PO (12:02)
[2024-03-06] MEDS: iohexol 350 mg/mL 500 mL Btl (per mL) IV (12:13)
[2024-03-06 12:34] LABS: Basophils % 0.5 %; Eosinophils # 0.1 10^3/uL (0.0-0.8); Eosinophils % 1.6 %; Hematocrit 30.7 % (36-47); Lymphocytes # 0.7 10^3/uL (0.8-4.8); Lymphocytes % 9.4 %; Mean Corpuscular HGB Conc 32.2 g/dL (30-55); Mean Corpuscular Hemoglobin 30.2 pg (27-33); Mean Corpuscular Volume 93.6 fl (85-98); Mean Platelet Volume 8.7 fL (7.4-10.4); Monocytes % 13.1 %; Neutrophils # 5.69 10^3/uL (1.8-7.7); Neutrophils % 73.8 %; Nucleated Red Blood Cells % 0 %; Platelet Count 281 10^3/cmm (157-399); Red Blood Count 3.28 10^6/uL (3.85-5.65); Red Cell Distribution Width 13.2 % (12.1-15.1)
[2024-03-06 12:53] LABS: Alanine Aminotransferase 28 U/L (0-33); Albumin Level 3.5 g/dL (3.5-5.2); Alkaline Phosphatase 69 U/L (35-105); Anion Gap 19.8 (5-19); Aspartate Amino Transferase 22 U/L (0-32); Blood Urea Nitrogen 21 mg/dL (8-23); Calcium 8.7 mg/dL (8.5-10.5); Carbon Dioxide 19 mmol/L (22-29); Chloride 84 mmol/L (98-107); Creatinine Clr Calc Pharmacy 37.3307; Globulin 2.8 g/dL (1.3-4.6); Glucose 98 mg/dL (65-115); Osmolality Calculated 251 mOsm/kg (285-295); Potassium 3.8 mmol/L (3.5-5.1); Total Bilirubin 0.3 mg/dL (0.15-1.2); Total Protein 6.3 g/dL (6.6-8.7)
[2024-03-06 12:55] LABS: Sodium 119 mmol/L (136-145)
[2024-03-06 13:05] VITALS: BP 130/55; PULSE 61; O2SAT 97
--- NOTE | 2024-03-07 09:22 | DCPLANNER ---
message sent to Ortho/spine for compression fracture-
== END 2024-03-06 13:06 | disposition home or self-care (01) ==
PROVIDERS: Emergency Provider Emergency Medicine; PCP Electrodiagnostic Medicine
DX: S22.060A Wedge compression fracture of T7-T8 vertebra, initial encounter for closed fracture (principal); Z79.82 Long term (current) use of aspirin; Z87.891 Personal history of nicotine dependence; J44.9 Chronic obstructive pulmonary disease, unspecified; I10 Essential (primary) hypertension; E11.9 Type 2 diabetes mellitus without complications; W19.XXXA Unspecified fall, initial encounter
CPT/HCPCS: 36415; 71101; 71260; 74177; 80053; 81001; 85025; 99285

== ENCOUNTER → 2024-03-15 13:51 | Outpatient (BNVA) | payer MEDICARE, SELFPAY | PROVIDERS: PCP Electrodiagnostic Medicine; Visit Provider Orthopaedic Surgery | DX: S22.060A Wedge compression fracture of T7-T8 vertebra, initial encounter for closed fracture (principal); X58.XXXA Exposure to other specified factors, initial encounter | CPT/HCPCS: 72072 ==

== ENCOUNTER 2024-03-15 14:29 | Outpatient (CLI) | payer MEDICARE, SELFPAY | END 2024-03-15 14:30 | disposition home or self-care (01) | LOC: SPT 14:30 | PROVIDERS: PCP Electrodiagnostic Medicine; Visit Provider Orthopaedic Surgery | DX: Z46.89 Encounter for fitting and adjustment of other specified devices (principal); S22.060D Wedge compression fracture of T7-T8 vertebra, subsequent encounter for fracture with routine healing; X58.XXXD Exposure to other specified factors, subsequent encounter | CPT/HCPCS: 99203; L0456 ==

== ENCOUNTER → 2024-04-05 09:58 | Outpatient (BNVA) | payer MEDICARE, SELFPAY | PROVIDERS: PCP Electrodiagnostic Medicine; Visit Provider Orthopaedic Surgery | DX: S22.060A Wedge compression fracture of T7-T8 vertebra, initial encounter for closed fracture (principal); X58.XXXA Exposure to other specified factors, initial encounter | CPT/HCPCS: 72072; 99213 ==

== ENCOUNTER 2024-04-15 11:49 | Outpatient (CLI) | payer MEDICARE, SELFPAY ==
--- NOTE | 2024-04-15 11:55 | USCV_ITS ---
Nika Spears Age: 73 Gender: F : 1950 Exam Date: 04/15/2024 12:07 Ordering Phys: Mitul Peters DO Technologist: CT Exam Location: [facility]_ Indication: BP: 128 / 60 HR: 56 Rhythm: Sinus Technical Quality: Adequate MEASUREMENTS (Male / Female) Normal Values 2D ECHO LVOT Diameter 2.0 cm LV Ejection Fraction MOD 4C 67.7 % LV Ejection Fraction MOD 2C 69.4 % LV Ejection Fraction 2C AL 70.4 % LA Diameter 3.9 cm RA Systolic Volume 4C AL 38.5 ml RA Systolic Volume 4C MOD 38.2 ml LA Sys Volume AL 53.6 cm cubed LA Sys Volume Index AL 28.2 cm cubed/m squared Aorta at Sinotubular Diameter 2.2 cm M-MODE LA Ao Ratio MM 2.0 AV Cusp Separation MM 1.6 cm DOPPLER AV Peak Velocity 154.0 cm/s LVOT Peak Velocity 115.0 cm/s AV Area Cont Eq vti 2.4 cm squared AV Area Cont Eq pk 2.4 cm squared MV Peak Velocity 104.0 cm/s MV Area PHT 3.7 cm squared Mitral E to A Ratio 1.1 TV Peak Velocity 246.0 cm/s TR Peak Velocity 284.0 cm/s TR Peak Gradient 32.3 mmHg TR Mean Velocity 199.0 cm/s TR Mean Gradient 18.1 mmHg TR Velocity Time Integral 85.5 cm TV Peak E Velocity 80.0 cm/s PV Peak Velocity 113.0 cm/s FINDINGS Left Ventricle Normal left ventricular size, systolic function and wall thickness, with no regional wall motion abnormalities. Estimated LVEF normal 65%. Right Ventricle Normal right ventricular size and systolic function. Right Atrium Normal right atrial size. Left Atrium Normal left atrial size. Mitral Valve Structurally normal mitral valve. Trace mitral valve regurgitation. Aortic Valve Thickened aortic valve. No aortic valve stenosis. Tricuspid Valve Structurally normal tricuspid valve. Trace tricuspid valve regurgitation. TVPG 32 mmHg. Pulmonic Valve Structurally normal pulmonic valve. Trace pulmonary valve regurgitation. Pericardium No pericardial effusion. Aorta Normal size aortic root and proximal ascending aorta. IVC Normal inferior vena cava. CONCLUSIONS Normal left ventricle systolic function. LVEF normal 65% Normal chamber sizes. Normal RV systolic function. No significant valvular abnormality noted. Mildly elevated pulmonary pressures, PAP 37 mmHg. Mohammad Macario MD (Electronically Signed) Final Date: 16 April 2024 12:17 S
== END 2024-04-15 11:50 | disposition home or self-care (01) ==
LOC: RAD 11:49
PROVIDERS: PCP Electrodiagnostic Medicine; Visit Provider Electrodiagnostic Medicine
DX: I50.9 Heart failure, unspecified (principal); I35.8 Other nonrheumatic aortic valve disorders; R93.1 Abnormal findings on diagnostic imaging of heart and coronary circulation
CPT/HCPCS: 93306

== ENCOUNTER → 2024-05-17 10:31 | Outpatient (BNVA) | payer MEDICARE, SELFPAY | PROVIDERS: PCP Electrodiagnostic Medicine; Visit Provider Orthopaedic Surgery | DX: S22.060A Wedge compression fracture of T7-T8 vertebra, initial encounter for closed fracture (principal); X58.XXXA Exposure to other specified factors, initial encounter | CPT/HCPCS: 72072; 99213 ==

== ENCOUNTER → 2024-06-21 13:17 | Outpatient (BNVA) | payer MEDICARE, SELFPAY | PROVIDERS: PCP Electrodiagnostic Medicine; Visit Provider Internal Medicine | DX: R07.89 Other chest pain (principal); R06.09 Other forms of dyspnea; I25.10 Atherosclerotic heart disease of native coronary artery without angina pectoris; I10 Essential (primary) hypertension; E87.1 Hypo-osmolality and hyponatremia; Z79.82 Long term (current) use of aspirin; Z95.5 Presence of coronary angioplasty implant and graft; Z87.891 Personal history of nicotine dependence | CPT/HCPCS: 36415; 80048; 83880; 85007; 85025; 85378; 99214 ==

== ENCOUNTER 2024-07-04 06:49 | Outpatient (CLI) | payer MEDICARE, SELFPAY ==
--- NOTE | 2024-07-04 07:00 | NM_ITS ---
WS: [id number] NUCLEAR MEDICINE VENTILATION/PERFUSION LUNG SCAN HISTORY: rule out PE, elevated d-dimer COMPARISON: Chest radiograph 07/04/2024 TECHNIQUE: Ventilation: 32.7 mCi of Technetium 99 DTPA aerosol inhaled. Perfusion: 5.4 mCi of technetium 99m MAA IV. Central deposition of radionuclide during ventilation. Flattened diaphragms and blunting of the costophrenic angles. Perfusion is much improved as compared to the ventilation. Blunting of the costophrenic angles on perfusion. There is a single subsegmental linear shape defect in the posterior LEFT lower lobe. This is seen only on one image. NM/NM pul vent and perfus* [id number] IMPRESSION: 1. Low probability of pulmonary embolism. 2. Triple match blunting of the costophrenic angles, likely small effusions.
--- NOTE | 2024-07-04 07:32 | XR_ITS ---
WS: [id number] CHEST 2 VIEWS HISTORY: ELEVATED D DIMER/?PE COMPARISON: 03/06/2024 Lungs: Lungs are slightly decreased. This is probably related to the kyphosis. Diaphragms are flattened. No consolidation. Blunting of the costophrenic angles, LEFT greater than RIGHT is new. No pneumonia. Cardiac size: Mildly enlarged cardiac silhouette. Mediastinum/Aorta: Mildly ectatic thoracic aorta. Bones: Osteopenia. Severe compression fracture at what is probably T9. Vertebral plana fracture. Extensive calcifications noted into the suprarenal aorta. XR/XR chest 2V* [id number] IMPRESSION: 1. No pneumonia. 2. Minimal blunting of the costophrenic angles bilaterally is new. Suspect sma ll bilateral pleural effusions. 3. Mild cardiomegaly.
== END 2024-07-04 06:50 | disposition home or self-care (01) ==
PROVIDERS: PCP Electrodiagnostic Medicine; Visit Provider Internal Medicine
DX: R79.89 Other specified abnormal findings of blood chemistry (principal); R91.8 Other nonspecific abnormal finding of lung field; I51.7 Cardiomegaly; I77.810 Thoracic aortic ectasia; M85.80 Other specified disorders of bone density and structure, unspecified site; M48.54XA Collapsed vertebra, not elsewhere classified, thoracic region, initial encounter for fracture; I70.0 Atherosclerosis of aorta; R93.89 Abnormal findings on diagnostic imaging of other specified body structures
CPT/HCPCS: 71046; 78014; A9540; A9567

== ENCOUNTER 2024-07-06 10:00 | Outpatient (CLI) | payer MEDICARE, SELFPAY ==
--- NOTE | 2024-07-06 | ECG_ITS ---
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 The perfusion scan will be documented separately. DATA: Baseline heart rate was 82 beats per minute. Baseline blood pressure was 123/68 millimeters of mercury. Target heart rate was 146. Maximum heart rate achieved was 115. which was 78% of the predicted target heart rate. Maximum blood pressure was 178/84 millimeters of mercury. The reason for ending the test was completion of the protocol. The patient did not experience any symptoms. ELECTROCARDIOGRAM: BASELINE: Sinus rhythm. Normal axis. Nonspecific inferolateral T wave number EXERCISE: After Lexiscan injection, no ST-T changes suggestive of ischemic noted. Frequent PVCs noted CONCLUSION: Please note due to baseline abnormality of the EKG specificity and sensitivity of the EKG portion of LexiScan MIBI stress test will be low 1. EKG not suggestive of ischemia 2. Lexiscan injection unremarkable. 3. Perfusion scan will be documented separately. Electronically Signed On 07-19-2024 23:15:48 CDT by MIKY VARGAS [id number] [id number]
[2024-07-06 10:05] VITALS: BMI 28.3
--- NOTE | 2024-07-06 10:06 | NMCV_ITS ---
NM kevin perf SPECT r/s* [id number] Nika Spears Age: 73 Gender: F : 1950 Exam Date: 07/06/2024 10:56 Ordering Phys: Vipin Pearce M.D ([email or web address]) Technologist: MERRITT Palomino Exam Location: [facility] Indications: cp STRESS TEST [facility] IMAGE PROTOCOL Rest/Stress 1 Lexiscan Day Radiopharmaceutical Dose (mCi) Administration Site Administered by Rest: Tc-99m 10.9 IV Connie Grullon PASSPORT SUPPORT MANAGER Sestamibi Stress:Tc-99m 32.3 IV Connie Uribegle, PASSPORT SUPPORT MANAGER Sestamibi Rest: 06-Jul-2024 60 Discovery 630 Stress: 06-Jul-2024 30 Discovery 630 0.4mg Lexiscan. Supine position only as patient was unable to lay prone. SPECT RESULTS Technical Quality: Good Raw Data Analysis: Normal Image Corrections: No attenuation or motion correction applied Summed Stress Score: 0 Summed Rest Score: 0 Summed Difference Score: 0 PERFUSION FINDINGS SPECT images demonstrate homogeneous tracer distribution throughout the myocardium. FUNCTIONAL RESULTS (calculated via Gated SPECT) Stress Image LV EF (%): 88 Stress EDV (mL):34 TID: 0.94 Stress ESV (mL):4 FUNCTIONAL FINDINGS: There is normal left ventricular systolic function. IMPRESSIONS Myocardial perfusion imaging is normal. Vipin Pearce MD (Electronically Signed) Final Date: 08 Jul 2024 12:03 S
[2024-07-06] MEDS: regadenoson 0.4 Mg/5 ml Syringe IVP (11:21)
[2024-07-06] MEDS: ondansetron 2 mg/ML SDV 2 mL 4 MG IVP (11:25)
[2024-07-06] MEDS: aminophylline 25 mg/mL SDV 20 mL IVP ×2 (11:25→11:27)
[2024-07-06 11:36] VITALS: BP 131/67; PULSE 91
== END 2024-07-06 10:01 | disposition home or self-care (01) ==
LOC: CDL 10:00
PROVIDERS: PCP Electrodiagnostic Medicine; Visit Provider Internal Medicine
DX: R07.9 Chest pain, unspecified (principal); R06.02 Shortness of breath
CPT/HCPCS: 36415; 78452; 93017; 96374; A9500; J0280; J2405; J2785

== ENCOUNTER 2024-07-08 16:12 | Outpatient (CLI) | payer MEDICARE, SELFPAY ==
--- NOTE | 2024-07-08 16:45 | USCV_ITS ---
Nika Spears Age: 73 Gender: F : 1950 Exam Date: 07/08/2024 16:56 Ordering Phys: Vipin Pearce M.D ([email or web address]) Technologist: JILLIAN Exam Location: [facility] Indication: elevated d dimer HISTORY: ELEVATED D DIMER PROCEDURES: Venous duplex imaging was performed in bilateral lower extremities. The following venous structures were evaluated: common femoral vein, profunda vein, proximal portion of the greater saphenous vein, superficial femoral vein, and the popliteal vein. In addition, the posterior tibial and peroneal trunk were evaluated. FINDINGS: No evidence of DVT seen in any vessel visualized at this time. CONCLUSIONS No evidence of right lower extremity DVT. No evidence of left lower extremity DVT. Tl Marino MD (Electronically Signed) Final Date: 10 Jul 2024 17:12 S
== END 2024-07-08 16:13 | disposition home or self-care (01) ==
LOC: RAD 16:13
PROVIDERS: PCP Electrodiagnostic Medicine; Visit Provider Internal Medicine
DX: M79.604 Pain in right leg (principal); M79.605 Pain in left leg; R79.89 Other specified abnormal findings of blood chemistry
CPT/HCPCS: 93970

== ENCOUNTER 2024-07-10 14:08 | Inpatient (IN) | payer MEDICARE, SELFPAY ==
[2024-07-10] VITALS (11 sets, daily range): BP systolic 102–169; BP diastolic 47–146; PULSE 70–86; RESP 19–25; TEMP 36.4–36.9; O2SAT 95–100; BMI 28.3; BMI 30.7
--- NOTE | 2024-07-10 14:13 | XRR_ITS ---
PROCEDURE INFORMATION: Exam: XR Chest Exam date and time: 07/10/2024 3:02 PM Age: 73 years old Clinical indication: Shortness of breath; Additional info: SOB TECHNIQUE: Imaging protocol: Radiologic exam of the chest. Views: 1 view. COMPARISON: CR XR chest 2V* [id number] 07/04/2024 7:47 AM FINDINGS: Lungs: Unremarkable. No consolidation. Pleural spaces: Unremarkable. No pleural effusion. No pneumothorax. Heart/Mediastinum: Unremarkable. No cardiomegaly. Bones/joints: Unremarkable. XR/XR chest 1V portable [id number] IMPRESSION: No acute findings.
--- NOTE | 2024-07-10 14:17 | ECG_ITS ---
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1950 Requested By: Haroon Mendez Order Number: [id number] Reading MD: MIKY VARGAS Measurements Intervals [place] Rate: 72 P: 38 MI: 220 QRS: -15 QRSD: 90 T: -84 QT: 377 QTc: 414 Interpretive Statements SINUS RHYTHM WITH FIRST DEGREE AV BLOCK POSSIBLE LEFT ATRIAL ENLARGEMENT [-0.1mV P-WAVE IN V1/V2] LOW QRS VOLTAGE IN PRECORDIAL LEADS [QRS DEFLECTION < 1.0 mV IN CHEST LEADS] POSSIBLE RIGHT VENTRICULAR CONDUCTION DELAY [RSR (QR) IN V1/V2] POSSIBLE ANTERIOR MYOCARDIAL INFARCTION , OF INDETERMINATE AGE [30 ms Q WAVE IN V3/V4, OR R < 0.2 mV IN V4] MODERATE T-WAVE ABNORMALITY, CONSIDER INFERIOR ISCHEMIA [-0.1+ mV T-WAVE IN II/aVF] INTERPRETATION BASED ON A DEFAULT AGE OF 40 YEARS Compared to ECG 03/30/2023 02:17:54 No change since previous ECG performed Electronically Signed On 07-11-2024 19:04:41 CDT by MIKY VARGAS [id number]
[2024-07-10 14:38] LABS: Basophils # 0.1 10^3/uL (0.0-0.1); Basophils % 0.5 %; Eosinophils # 0.2 10^3/uL (0.0-0.8); Eosinophils % 1.6 %; Hematocrit 30.3 % (36-47); Lymphocytes # 1.2 10^3/uL (0.8-4.8); Lymphocytes % 8.1 %; Mean Corpuscular HGB Conc 32.3 g/dL (30-55); Mean Corpuscular Volume 86.6 fl (85-98); Mean Platelet Volume 8.7 fL (7.4-10.4); Monocytes # 0.9 10^3/uL (0.2-0.9); Monocytes % 6.1 %; Neutrophils # 11.84 10^3/uL (1.8-7.7); Neutrophils % 80.4 %; Nucleated Red Blood Cells % 0 %; Platelet Count 386 10^3/cmm (157-399); Red Cell Distribution Width 14.4 % (12.1-15.1)
[2024-07-10 15:08] LABS: Alanine Aminotransferase 39 U/L (0-33); Albumin Level 3.5 g/dL (3.5-5.2); Alkaline Phosphatase 124 U/L (35-105); Anion Gap 26.7 (5-19); Aspartate Amino Transferase 56 U/L (0-32); Blood Urea Nitrogen 66 mg/dL (8-23); Calcium 6.5 mg/dL (8.5-10.5); Carbon Dioxide 10 mmol/L (22-29); Chloride 89 mmol/L (98-107); Creatinine Clr Calc Pharmacy 14.7238; Globulin 3.9 g/dL (1.3-4.6); Glucose 107 mg/dL (65-115); NT Pro B Type Natriuretic Pept 1688 pg/mL (0-125); Osmolality Calculated 276 mOsm/kg (285-295); Sodium 123 mmol/L (136-145); Total Bilirubin 0.3 mg/dL (0.15-1.2); Total Protein 7.4 g/dL (6.6-8.7)
--- NOTE | 2024-07-10 15:10 | W.ED.SOB ---
HPI - SOB/Dyspnea General: Chief Complaint: Shortness of Breath/Dyspnea Stated Complaint: sob, weakness Time Seen by Provider: 07/10/24 14:49 Source: patient Mode of arrival: ambulatory Limitations: no limitations History of Present Illness: HPI Narrative: 73-year-old female who has a history of coronary disease states that over the last few days she been having some shortness of breath. States she is also had some generalized weakness as well. States her dyspnea is worse with exertion she denies any chest pain denies any cough or fever her pulse ox here is 97%. Patient has been on Lasix recently. Associated symptoms: Deny abdominal pain, chest pain, fever(s), nausea or vomiting Related Data Home Medications ?Medication ?Instructions ?Recorded ?Confirmed pantoprazole 20 mg tablet,delayed 20 mg PO DAILY 08/12/19 06/21/24 release (Protonix) amitriptyline 10 mg tablet 10 mg PO BEDTIME 09/12/19 06/21/24 cetirizine 10 mg capsule 10 mg PO BEDTIME 01/15/21 06/21/24 aspirin 81 mg capsule 162 mg PO DAILY 10/12/23 06/21/24 albuterol sulfate 90 mcg/actuation 1 inh inhalation BID 03/06/24 06/21/24 aerosol inhaler atorvastatin 20 mg tablet 20 mg PO DAILY 03/06/24 06/21/24 fluticasone furoate 100 1 inh inhalation DAILY 03/06/24 06/21/24 mcg-vilanterol 25 mcg/dose inhalation powder (Breo Ellipta) fluticasone propionate 50 1 spray intranasal BID 03/06/24 06/21/24 mcg/actuation nasal spray,suspension metoprolol tartrate 100 mg tablet 100 mg PO BID 03/06/24 06/21/24 tramadol 50 mg tablet 50 mg PO BID 03/06/24 06/21/24 lidocaine 5 % topical ointment 07/10/24 Previous Rx's ?Medication ?Instructions ?Recorded valsartan 160 mg tablet 160 mg PO BID #180 tabs 10/12/23 TLSO Brace #1 ea 03/15/24 hydrocodone 5 mg-acetaminophen 325 1 tab PO Q6H PRN pain 7 days #28 03/15/24 mg tablet tabs hydralazine 50 mg tablet See Rx Instructions .Route 04/04/24 .COMPLEX #90 tabs furosemide 20 mg tablet 20 mg PO DIRECTED #270 tabs 06/30/24 potassium chloride 20 mEq 20 meq PO DAILY #90 tabs 06/30/24 tablet,extended release (K-Tab) Allergies Allergy/AdvReac Type Severity Reaction Status Date / Time amlodipine Allergy Severe ADR/ALGY-Flushing/Facial Verified 07/10/24 14:22 swelling Review of Systems Const: Denies: fever(s), chills, body aches or change in appetite ENMT: Denies: throat pain or dental pain Card: Denies: chest pain Resp: Reports: dyspnea GI: Denies: abdominal pain, nausea, vomiting or diarrhea Musc: Denies: neck pain or back pain Skin/Breast: Denies: rash Neuro: Denies: headache(s) PFSH ED PFSH: Medical History Coronary artery disease Gingivitis Oral mucositis (ulcerative), unspecified Chronic cystitis Pelvic pain Osteopenia after menopause Alopecia of scalp Asthma Meniere disease Diabetes Joint pain Positive CYNTHIA (antinuclear antibody) COPD (chronic obstructive pulmonary disease) Hypertension GERD (gastroesophageal reflux disease) Cystitis Surgical History Hx of total knee arthroplasty History of total left knee replacement Status post hysterectomy Hx of heart artery stent Family History Grandmother CAD (coronary artery disease) Other Cancer Hypertension Denies family history of Rheumatoid arthritis Diabetes Lupus Hyperlipidemia Chronic kidney disease (CKD) Lung disease Stroke Social History Smoking and tobacco/nicotine status: unknown if used tobacco/nicotine Alcohol intake: never Substance/Drug Use: unknown Adopted: No Caregiver/support person: No Lives independently: No Household members: spouse Marital status: Current occupational status: retired Physical Exam Const: COMMON NORMALS: patient oriented x3 HENMT: COMMON NORMALS: normocephalic and atraumatic HEAD & SCALP: normocephalic and atraumatic Eye: COMMON NORMALS: conjunctivae normal CONJUNCTIVA: Yes conjunctivae normal Neck/C-Spine: COMMON NORMALS: full ROM and supple Chest: COMMONS NORMALS: normal inspection of the chest and normal palpation of entire chest wall Resp: COMMON NORMALS: normal respiratory effort, No retractions, No use of accessory muscles and clear to auscultation bilaterally AUSCULTATION: clear to auscultation bilaterally Cardio: COMMON NORMALS: regular rate, regular rhythm and No murmurs present (Cardio) RATE: regular rate RHYTHM: regular rhythm GI: COMMON NORMALS: Normal to inspection, nondistended, normoactive bowel sounds present, Soft to palpation, non-tender and no masses PALPATION: Yes Soft to palpation Extremity: COMMON NORMALS: normal to inspection and full ROM Neuro: COMMON NORMALS: patient oriented x3, moves all extremities and no focal motor deficits Psych: COMMON NORMALS: mental status grossly normal, Normal thought process present and cooperative THOUGHT PROCESS: Normal thought process present Skin: COMMON NORMALS: no rashes or lesions noted and no wounds GENERAL SKIN EXAM: no rashes or lesions noted Course Vital Signs: Vital signs: Vital Signs Temperature 97.5 F L 07/10/24 14:11 Pulse Rate 72 07/10/24 14:11 Respiratory Rate 20 H 07/10/24 14:11 Blood Pressure 169/146 07/10/24 14:11 Pulse Oximetry 97 07/10/24 14:11 Oxygen Delivery Me thod Room Air 07/10/24 14:11 MDM - SOB/Dyspnea Medical Decision Making Patient presents here with weakness likely due to electrolyte abnormalities she has acute kidney injury along with hypokalemia and hyponatremia likely from Lasix spoke to hospitalist will admit at this time. Medical Records I reviewed the patient's medical records. Lab Data I reviewed the patient's lab results. 07/10/24 14:33 07/10/24 14:33 Labs/Radiology: Laboratory Results WBC 14.70 10^3/uL (3.29-11.43) H 07/10/24 14:33 RBC 3.50 10^6/uL (3.85-5.65) L 07/10/24 14:33 Hgb 9.80 g/dL (11.27-16.99) L 07/10/24 14:33 Hct 30.3 % (36-47) L 07/10/24 14:33 MCV 86.6 fl (85-98) 07/10/24 14:33 MCH 28.0 pg (27-33) 07/10/24 14:33 MCHC 32.3 g/dL (30-55) 07/10/24 14:33 RDW 14.4 % (12.1-15.1) 07/10/24 14:33 Plt Count 386 10^3/cmm (157-399) 07/10/24 14:33 MPV 8.7 fL (7.4-10.4) 07/10/24 14:33 Neut % (Auto) 80.4 % 07/10/24 14:33 Lymph % (Auto) 8.1 % 07/10/24 14:33 [place] % (Auto) 6.1 % 07/10/24 14:33 Eos % (Auto) 1.6 % 07/10/24 14:33 Baso % (Auto) 0.5 % 07/10/24 14:33 Neut # (Auto) 11.84 10^3/uL (1.8-7.7) H 07/10/24 14:33 Lymph # (Auto) 1.2 10^3/uL (0.8-4.8) 07/10/24 14:33 [place] # (Auto) 0.9 10^3/uL (0.2-0.9) 07/10/24 14:33 Eos # (Auto) 0.2 10^3/uL (0.0-0.8) 07/10/24 14:33 Baso # (Auto) 0.1 10^3/uL (0.0-0.1) 07/10/24 14: Nucleated RBC % (auto) 0 % 07/10/24 14: Nucleated RBCs # 0.0 /100WBC 07/10/24 14:33 D-Dimer Cancelled 07/10/24 14:33 Sodium 123 mmol/L (136-145) L 07/10/24 14:33 Potassium 2.7 mmol/L (3.5-5.1) L* 07/10/24 14:33 Chloride 89 mmol/L (98-107) L 07/10/24 14:33 Carbon Dioxide 10 mmol/L (22-29) L 07/10/24 14:33 Anion Gap 26.7 (5-19) H 07/10/24 14:33 BUN 66 mg/dL (8-23) H 07/10/24 14:33 Creatinine 3.2 mg/dL (0.5-0.9) H 07/10/24 14:33 GFR Calculation Not Reportable 07/10/24 14:33 Glucose 107 mg/dL (65-115) 07/10/24 14:33 Calculated Osmolality 276 mOsm/kg (285-295) L 07/10/24 14:33 Calcium 6.5 mg/dL (8.5-10.5) L 07/10/24 14:33 Total Bilirubin 0.3 mg/dL (0.15-1.2) 07/10/24 14:33 AST 56 U/L (0-32) H 07/10/24 14:33 ALT 39 U/L (0-33) H 07/10/24 14:33 Alkaline Phosphatase 124 U/L (35-105) H 07/10/24 14:33 NT-Pro-B Natriuret Pep 1688 pg/mL (0-125) H 07/10/24 14:33 Total Protein 7.4 g/dL (6.6-8.7) 07/10/24 14:33 Albumin 3.5 g/dL (3.5-5.2) 07/10/24 14:33 Globulin 3.9 g/dL (1.3-4.6) 07/10/24 14:33 All radiology interpretation(s) finalized by discharge Discharge Plan Discharge Patient Disposition: Admitted As Inpatient Clinical Impression: Hyponatremia, Acute renal failure, Weakness, Hypokalemia Condition: Stable Coding Level of Care Code 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
[2024-07-10 15:12] LABS: Potassium 2.7 mmol/L (3.5-5.1)
[2024-07-10 15:24] LABS: Troponin(5th) Baseline 77 ng/L (0-10)
[2024-07-10] MEDS: sodium chloride 0.9% 1,000 ML 999 ML IV (15:39)
[2024-07-10] MEDS: potassium chloride ER 20 mEq Tablet 60 MEQ PO (15:40)
[2024-07-10 15:49] LABS: Bilirubin Urine Negative (Negative); Blood Urine Negative (Negative); Glucose Urine UA Negative (Normal); Ketones Urine Negative (Negative); Leukocyte Esterase Urine 2+ (Negative); Nitrate Urine Negative (Negative); Protein Urine 1+ (Negative); Specific Gravity, Urine 1.011 (1.005-1.030); Urine Appearance Cloudy (CLEAR); Urine Color Yellow (Yellow); Urobilinogen Urine 0.2 mg/dL (Negative)
[2024-07-10 16:03] LABS: Magnesium 0.2 mg/dL (1.7-2.3)
[2024-07-10 16:06] LABS: Add Urine Microscopic? YES; RBC Urine 0-2 /hpf (0-2)
[2024-07-10 16:07] LABS: Bacteria Urine 1+ /hpf; Hyaline Casts Urine 5.77 /lpf; Squamous Epithelial Cell Urine 21-50 /hpf (0-5)
[2024-07-10 16:07] LABS: Thyroid Stimulating Hormone 1.08 uIU/mL (0.27-4.20)
[2024-07-10] MEDS: magnesium sulfate premix 1 GM/100 ML PIGGYBACK IV ×2 (16:40→17:50)
--- NOTE | 2024-07-10 16:40 | PM.HP ---
Providers/Chief Complaint Admitting Physician: Bentley Onela MD Primary Care Provider: Mitul Peters DO Chief Complaint: sob, weakness History of Present Illness Nika Spears is a 73 year old female with past medical history of CAD post PCI to RCA who has been following up with cardiology with difficulty in breathing on exertion for last 1 month for which she has had multiple workup as an outpatient including Lexiscan stress test, VQ scan, lower limb Doppler and had been asked to increase her dose of Lasix to 50 mg oral daily and 20 mg in the afternoon. Patient states her breathing has continued to gotten worse. She came in today because of feeling weak, tired, cramping in her legs which is started happening since her increased dose of Lasix. In the ER she was found to have hypokalemia, worsening of her renal functions. Patient is a former smoker. Denies any nausea, vomiting, headache, chest pain, cough, runny nose, recent travels, sick contact, travel outside [place], history of tuberculosis, known history of COPD. Review of Systems General: Reports: 10 or more systems reviewed and unremarkable except in HPI and below Const: Denies: fever(s), chills, body aches, change in appetite, change in weight, malaise, night sweats, diaphoresis, change in sleep pattern, daytime sleepiness or snoring Eyes: Denies: change in vision, blurry vision, photophobia, eye discomfort or eye discharge ENMT: Denies: throat pain, enlarged tonsils, hoarseness, mouth pain, oral sores, dry mouth, tinnitus, nasal congestion or post nasal drip Card: Denies: chest pain, palpitations, irregular heart rhythm, edema, swelling of feet/ankles, lightheadedness, syncope, pre-syncope, dyspnea on exertion, orthopnea, leg pain with exertion or acrocyanosis Resp: Denies: dyspnea, productive cough, non-productive cough, wheezing, stridor, pain on inspiration, change in phlegm color, hemoptysis or chest congestion GI: Denies: abdominal pain, nausea, vomiting, hematemesis, coffee ground emesis, dysphagia, heartburn, diarrhea, constipation, bloating, GI cramping, change in bowel habits, pain on defecation, hematochezia or melena : Denies: flank pain, dysuria, urinary frequency, urinary urgency, urinary hesitancy, nocturia or hematuria Musc: Denies: neck pain, back pain, extremity pain, joint pain, joint swelling, joint redness, joint stiffness or limited range of motion Neuro: Denies: headache(s), numbness in extremities, weakness in extremities, sensory changes, lack of coordination, difficulty walking, frequent falls, dizziness, vertigo, confusion, Slurred speech present, difficulty communicating thoughts or seizure-like activity Psych: Denies: anxiety, depression, mood swings, panic attacks, hopelessness or irritability Endo: Denies: polyuria, polydipsia, tired all the time, cold intolerance, excessive sweating, flushing or heat intolerance Marcel/Lymph: Denies: easy bruising or easy bleeding All/Imm: Denies: tongue swelling, facial swelling or acute wheezing Medications/Allergies Home Medications ?Medication ?Instructions ?Recorded ?Confirmed ?Last Taken ?Type amitriptyline 10 mg tablet 10 mg PO BEDTIME 09/12/19 07/10/24 07/09/24 History valsartan 160 mg tablet 160 mg PO BID #180 tabs 10/12/23 07/10/24 Unknown Rx albuterol sulfate 90 mcg/actuation 1 inh inhalation Q6H PRN Shortness 03/06/24 07/10/24 07/10/24 History aerosol inhaler Of Breath atorvastatin 20 mg tablet 10 mg PO QPM 03/06/24 07/10/24 07/09/24 History fluticasone furoate 100 1 inh inhalation DAILY 03/06/24 07/10/24 07/10/24 History mcg-vilanterol 25 mcg/dose inhalation powder (Breo Ellipta) fluticasone propionate 50 1 spray intranasal DAILY 03/06/24 07/10/24 07/10/24 History mcg/actuation nasal spray,suspension metoprolol tartrate 100 mg tablet 50 mg PO BID 03/06/24 07/10/24 07/10/24 History tramadol 50 mg tablet 100 mg PO BEDTIME 03/06/24 07/10/24 07/09/24 History TLSO Brace #1 ea 03/15/24 07/10/24 Unknown Rx aspirin 81 mg tablet,delayed 81 mg PO QAM 07/10/24 07/10/24 07/10/24 History release celecoxib 200 mg capsule 200 mg PO DAILY 07/10/24 07/10/24 07/10/24 History cetirizine 10 mg tablet 10 mg PO QAM 07/10/24 07/10/24 07/10/24 History furosemide 20 mg tablet See Rx Instructions .Route .COMPLEX 07/10/24 07/10/24 07/10/24 History gabapentin 300 mg capsule 300 mg PO QAM 07/10/24 07/10/24 07/10/24 History hydrocortisone 2.5 % topical cream See Rx Instructions .Route .COMPLEX 07/10/24 07/10/24 Unknown History with perineal applicator (Proctozone-HC) lidocaine 5 % topical ointment 1 applic topical QID PRN Skin 07/10/24 07/10/24 Unknown History Irritation pantoprazole 40 mg tablet,delayed 40 mg PO QAM 07/10/24 07/10/24 07/10/24 History release potassium chloride 20 mEq 20 meq PO QAM 07/10/24 07/10/24 07/10/24 History tablet,extended release ropinirole 1 mg tablet 1 mg PO BEDTIME PRN restless legs 07/10/24 07/10/24 Unknown History Allergies Allergy/AdvReac Type Severity Reaction Status Date / Time amlodipine Allergy Severe ADR/ALGY-Flushing/Facial Verified 07/10/24 14:22 swelling PFSH Acute PFSH: Medical History (Updated 07/10/24 @ 18:23 by Bentley Oneal MD) Chronic hyponatremia Coronary artery disease Gingivitis Oral mucositis (ulcerative), unspecified Chronic cystitis Pelvic pain Osteopenia after menopause Alopecia of scalp Asthma Meniere disease Diabetes Joint pain Positive CYNTHIA (antinuclear antibody) COPD (chronic obstructive pulmonary disease) Hypertension GERD (gastroesophageal reflux disease) Cystitis Surgical History Hx of total knee arthroplasty History of total left knee replacement Status post hysterectomy Hx of heart artery stent Family History Grandmother CAD (coronary artery disease) Other Cancer Hypertension Denies family history of Rheumatoid arthritis Diabetes Lupus Hyperlipidemia Chronic kidney disease (CKD) Lung disease Stroke Social History Smoking and tobacco/nicotine status: unknown if used tobacco/nicotine Alcohol intake: never Substance/Drug Use: unknown Adopted: No Caregiver/support person: No Lives independently: No Household members: spouse Marital status: Current occupational status: retired Vitals/I&O/Wt Last Vital Signs Temp 97.5 F L 07/10/24 14:11 Pulse 70 07/10/24 15:50 Resp 22 H 07/10/24 15:50 BP 102/68 07/10/24 15:50 Pulse Ox 95 07/10/24 15:50 O2 Del Method Room Air 07/10/24 14:11 Weight last 48 hrs Weight 72.575 kg Physical Exam Narrative: General: In mild distress because difficulty in breathing, sick appearing, tachypneic, dehydrated HEENT: PERRLA, pupils bilaterally equal and reactive Chest: Bilateral bronchial breath sounds all lung zaragoza with occasional rhonchi, decreased air entry bilateral lower zone CVS: S1-S2 regular, no murmurs, no tachycardia, no gallops, no rubs Abdomen: Soft, nontender, no organomegaly, bowel sounds present Neuro: No focal deficits, no facial deformity, AO x3, power 5/5 in all limbs Data 07/10/24 14:33 07/10/24 14:33 A&P Assessment and plan (1) Acute renal failure: Baseline creatinine 1.2-1.5. Currently up to 3.2. Associated with metabolic acidosis, hyponatremia, hypokalemia. Most likely in setting of increased diuretics, home use of valsartan, NSAIDs and dehydration. Medical reconciliation done for nephrotoxic drugs. Check CT abdomen pelvis to rule out obstructive nephropathy. Ugalde catheterization. Normal saline at 75 cc/h. (2) Hypokalemia: Already received 60 mg of oral potassium in the ER. Will give 40 mg more. Repeat BMP in evening. (3) Hypomagnesemia: Found to be have 0.2. Will give 2 mg of IV magnesium. Repeat in AM. (4) Metabolic acidosis: Most likely in setting of renal failure. Check ABG. If ABG shows metabolic acidosis will plan for sodium bicarb. (5) Exertional shortness of breath: Unknown cause. Could be in setting of pulmonary embolism or COPD exacerbation. Patient is a former smoker. Denies any history of COPD though it is mentioned in her problem list. Has had multiple workup as an outpatient over the last 1 month including Lexiscan stress test on 07/06 which was negative for acute ischemia. D-dimer found to be more than 11. Had VQ scan done as an outpatient which was low probability for VTE. Had lower limb Doppler negative for DVT. Last echocardiogram back in March showed normal EF with normal RV functions with PASP of 37 mmHg. Less likelihood in setting of CHF. Will repeat echocardiogram limited for EF. Check CT chest without contrast to rule out any consolidation. For now presumptively start on treatment for COPD exacerbation with Pulmicort twice daily, DuoNeb every 6 hour, Solu-Medrol 125 mg stat followed by 40 mg every 6 hour. Will plan for aggressive weaning. Check MRSA swab. Sputum culture. For now hold off on starting antibiotics until confirmed consolidation on CT. Given D-dimer there is a high chance of pulmonary embolism. Discussed in detail with the patient regarding presumptive PE and starting on anticoagulation though she does have a remote history of gastric ulcer. Hemoglobin lately stable. We discussed presumptive PE diagnosis as all the other workup as an outpatient has been negative if CT chest does not show any consolidation or she does not show any improvement with treatment for COPD and starting on anticoagulation though she would be at a risk of GI bleed given her past history. Patient verbalizes understanding and would like to think further before agreeing for anticoagulation. (6) Transaminitis: Check hepatitis panel. LDH, GGT. CT on pelvis as above. Monitor daily. (7) Coronary artery disease: No active chest pain. Continue with home dose of aspirin. Hold off on statin for now. Continue with home dose of metoprolol. (8) Hypertension: Goal blood pressure less than 140/90 mmHg. Continue with home dose of metoprolol for now. Holding off on ARB. Will uptitrate as for goal blood pressure. (9) COPD (chronic obstructive pulmonary disease): (10) Chronic hyponatremia: Chronically sodium around 123-129. Currently at base. Monitor daily. Plan CODE STATUS: Discussed and with the patient. Full code. Protonix 40 mg Q12 hourly. Heparin 5000 every 12 hourly for DVT prophylaxis Renal nondialysis diet Restart other home medications. PDMP PDMP Reviewed: Not Reviewed Attestations Medical Necessity Statement*: Admission for more than 2 midnights for management of acute renal failure with hypokalemia, hypomagnesemia, hyponatremia along with metabolic acidosis due to dehydration, shortness of breath Diagnoses Acute renal failure N17.9 Hypokalemia E87.6 Hypomagnesemia E83.42 Metabolic acidosis E87.20 Exertional shortness of breath R06.02 Transaminitis R74.01 Coronary artery disease involving [place] coronary artery of [place] heart without angina pectoris I25.10 Coronary Disease-Associated Artery/Lesion type: [place] artery [place] vs. transplanted heart: [place] heart Associated angina: without angina Hypertension, unspecified type I10 Hypertension type: unspecified Chronic obstructive pulmonary disease, unspecified COPD type J44.9 COPD type: unspecified COPD Chronic hyponatremia E87.1
--- NOTE | 2024-07-10 16:52 | ECG_ITS ---
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1950 Requested By: Haroon Mendez Order Number: [id number] Reading MD: MIKY VARGAS Measurements Intervals [place] Rate: 82 P: 55 FL: 240 QRS: -14 QRSD: 93 T: -74 QT: 378 QTc: 443 Interpretive Statements SINUS RHYTHM WITH FIRST DEGREE AV BLOCK POSSIBLE LEFT ATRIAL ENLARGEMENT [-0.1mV P-WAVE IN V1/V2] LOW QRS VOLTAGE IN PRECORDIAL LEADS [QRS DEFLECTION < 1.0 mV IN CHEST LEADS] POSSIBLE ANTERIOR MYOCARDIAL INFARCTION , OF INDETERMINATE AGE [30 ms Q WAVE IN V3/V4, OR R < 0.2 mV IN V4] Compared to ECG 07/10/2024 14:17:27 T-wave abnormality no longer present Possible ischemia no longer present Myocardial infarct finding still present Electronically Signed On 07-11-2024 19:07:42 CDT by MIKY VARGAS [email or web address]
[2024-07-10 16:54] LABS: ABG PH Result 7.24 (7.35-7.45); Alveolar-Arterial Oxygen Gradi 2.8 mmHg (5-10); Arterial Blood Gas Hematocrit 29.4 % (37-47); Base Excess ABG -18.3 mmol/L (-2.0-2.0); Blood Gas Allen Test Pos; Blood Gas Sample Type Arterial; Carboxyhemoglobin 0.8 %THgb (0.4-20.1); HCO3 ABG 7.1 mmol/L (22-26); HGB O2 Sat 96.8 % (95-100); Ionized Calcium Level - ABG 0.9 mmol/L (1.1-1.4); Methemoglobin 0.2 % (0.4-1.5); Oxygen Saturation ABG 97.7; Potassium Level - ABG 3.4 mmol/L (3.5-5.0); Total Hemoglobin 9.6 g/dL (12-16)
[2024-07-10 16:55] LABS: ABG PCO2 16.4 mmHg (35-45); Blood Gas Operator Identificat MONRO; Blood Gas Sample Site Radial, left; Oxygen Device ROOM AIR; PO2 FiO2 Ratio Arterial Blood 500
[2024-07-10] MEDS: albuterol 2.5 MG/0.5 ML NEB INHALATION (17:04)
[2024-07-10 17:22] LABS: Iron 20 ug/dL (37-145); Percent Saturation 9.6 % (20-50); Thyroid Stimulating Hormone 1.11 uIU/mL (0.27-4.20); Total Iron Binding Capacity 207 mcg/dl; Unsaturated Iron Binding 187 ug/dL (112-347); Vitamin B12 836 pg/mL (232-1245)
[2024-07-10] MEDS: docusate sodium 100 mg Capsule PO (17:23)
[2024-07-10] MEDS: heparin 5,000 unit/mL INJ 1 mL 5000 UNIT SUBCUT (17:23)
--- NOTE | 2024-07-10 17:50 | CTR_ITS ---
PROCEDURE INFORMATION: Exam: CT Chest Without Contrast; Diagnostic Exam date and time: 07/10/2024 10:32 PM Age: 73 years old Clinical indication: Pain and abnormal findings; Abnormal lab test; Abnormal kidney function lab tests and elevated liver enzymes and elevated wbc; Other: N/a; Abdominal pain; Generalized; Shortness of breath; Prior surgery; Surgery date: 6+ months; Surgery type: Coronary stent. Appy. Partial hysterectomy; C/O SOB with diffuse abd pain. Elevated wbc and liver enzymes. ; Additional info: SOB, renal failure TECHNIQUE: Imaging protocol: Diagnostic computed tomography of the chest without contrast. Radiation optimization: All CT scans at this facility use at least one of these dose optimization techniques: automated exposure control; mA and/or kV adjustment per patient size (includes targeted exams where dose is matched to clinical indication); or iterative reconstruction. COMPARISON: CT chest abdpel w/*[id number] 03/06/2024 12:07 PM RADIATION DOSE METRICS: Total DLP (mGy-cm): 825.45 FINDINGS: Lungs: Right lower lobe calcified granuloma. No focal consolidation. Pleural spaces: Trace left pleural effusion. Heart: Unremarkable. No cardiomegaly. No pericardial effusion. Lymph nodes: Unremarkable. No enlarged lymph nodes. Vasculature: Unremarkable. No aortic aneurysm. Bones/joints: Severe compression deformity of T8 vertebral body with near complete loss of vertebral body height. Soft tissues: Unremarkable. PROCEDURE INFORMATION: Exam: CT Abdomen And Pelvis Without Contrast Exam date and time: 07/10/2024 10:32 PM Age: 73 years old Clinical indication: Pain and abnormal findings; Abnormal lab test; Abnormal kidney function lab tests and elevated liver enzymes and elevated wbc; Other: N/a; Abdominal pain; Generalized; Shortness of breath; Prior surgery; Surgery date: 6+ months; Surgery type: Coronary stent. Appy. Partial hysterectomy; C/O SOB with diffuse abd pain. Elevated wbc and liver enzymes. ; Additional info: SOB, renal failure TECHNIQUE: Imaging protocol: Computed tomography of the abdomen and pelvis without contrast. Radiation optimization: All CT scans at this facility use at least one of these dose optimization techniques: automated exposure control; mA and/or kV adjustment per patient size (includes targeted exams where dose is matched to clinical indication); or iterative reconstruction. COMPARISON: CT chest abdpel w/*[id number] 03/06/2024 12:07 PM RADIATION DOSE METRICS: Total DLP (mGy-cm): 825.45 FINDINGS: Lungs: Unremarkable. Liver: Normal. No mass. Gallbladder and biliary ducts: Gallbladder is not well visualized due to contracted state versus cholecystectomy. No intra or extrahepatic biliary ductal dilatation. Pancreas: Normal. No ductal dilation. Spleen: Normal. No splenomegaly. Adrenal glands: Normal. No mass. Kidneys and ureters: No hydronephrosis or obstructing calculi. Punctate calcifications within bilateral kidneys likely represent vascular calcifications. Stomach and bowel: Multiple fluid-filled loops of small bowel. No small bowel dilatation. Appendix: No evidence of appendicitis. Intraperitoneal space: Unremarkable. No free air. No significant fluid collection. Vasculature: Diffuse atherosclerosis. Lymph nodes: Unremarkable. No enlarged lymph nodes. Urinary bladder: Unremarkable as visualized. Reproductive: Unremarkable as visualized. Bones/joints: No acute osseous abnormality. Multilevel degenerative changes within visualized spine. Grade 1 anterolisthesis of L4 over L5 with moderate spondylosis. Severe spinal canal stenosis at L4-L5 level. Soft tissues: Unremarkable. CT/[place] [id number] IMPRESSION: 1. Trace left pleural effusion. 2. Severe compression deformity of T8 vertebral body with near complete loss of vertebral body height, progressed in comparison to prior study. IMPRESSION: Multiple nondilated fluid filled loops of small bowel, nonspecific findings but may be seen with enteritis of infectious/inflammatory etiology.
--- NOTE | 2024-07-10 17:55 | PC.PHAR ---
called floor to clarify bicarb. nurse states that janel is requesting 3 amps of bicarb and does not want them diluted
--- NOTE | 2024-07-10 18:05 | PC.PHAR ---
called dr. islas concerning bicarb 150meq iv push order I received. I typically don't see this given iv push outside of an emergency situation and asked if i could dilute and give over several hours. he states he truly wants the nurse to give 150meq IV push. I will tube these dose up. rbto dr islas/devika
[2024-07-10 18:12] LABS: Lactate Dehydrogenase 323 U/L (135-214)
--- NOTE | 2024-07-10 18:15 | PC.PHAR ---
nurse called back regarding bicarb order. she is not allowed to give IV push on the floor. she gave me an order to dilute and give over 4 hours. i cancelled the original order and entered new order in d5w.
[2024-07-10] MEDS: methylPREDNISolone sod succ 125 mg/2 mL INJ IVP (18:34)
[2024-07-10] MEDS: sodium bicarbonate 150 MEQ in dextrose 5% 1,000 ML 287.5 MEQ IV (18:34)
[2024-07-10] MEDS: potassium chloride ER 20 mEq Tablet 40 MEQ PO (18:34)
[2024-07-10] MEDS: ATORVASTATIN 10 MG TABLET PO (18:34)
[2024-07-10 18:48] LABS: Estmated Average Glucose 140; Hemoglobin A1C 6.5 % (4.0-6.0)
[2024-07-10 18:59] LABS: Potassium 2.9 mmol/L (3.5-5.1)
[2024-07-10 19:11] LABS: Gamma Glutamyl Transferase 55 U/L (5-36)
[2024-07-10] MEDS: budesonide 0.5 mg/2 mL Neb INHALATION (19:42)
[2024-07-10] MEDS: ipratropium-albuterol 3 mL Neb INHALATION (19:42)
[2024-07-10 19:44] LABS: Hepatitis A Antibody IgM Non-Reactive (Nonreactive); Hepatitis B Core AB, Total Non-Reactive (Nonreactive); Hepatitis B Surface AB < 3.5 (11.5-1000)
[2024-07-10 19:57] LABS: Hepatitis B Surface Antigen Non-Reactive (Nonreactive); Hepatitis C Virus Antibody Non-Reactive (Nonreactive)
[2024-07-10] MEDS: sodium chloride 0.9% 1,000 ML 75 ML IV ×2 (20:21→23:45)
[2024-07-10] MEDS: TRAMadol 50 mg Tablet 100 MG PO (20:24)
[2024-07-10 20:36] LABS: INR 1.19 (0.8-1.2); Partial Thromboplastin Time 39.8 SECONDS (23.9-36.7)
[2024-07-10 20:45] LABS: Troponin 5 6HR 63.77 ng/L (0-10)
[2024-07-10] MEDS: magnesium sulfate premix 2 GM/50 ML PIGGYBACK IV (20:45)
[2024-07-10 20:47] LABS: Troponin 5 6HR Delta -13.23 ng/L (0-12)
--- NOTE | 2024-07-10 20:52 | ECG_ITS ---
[employer] Test Date: 2024-07-10 Pat Name: Nika Spears Department: Room: 275 Gender: Female Manager Party: : 1950 Requested By: Haroon Mendez Order Number: [id number] Reading MD: MIKY VARGAS Measurements Intervals [place]ie Rate: 82 P: 54 [place]: 206 QRS: 9 QRSD: 94 T: -58 QT: 392 QTc: 459 Interpretive Statements SINUS RHYTHM POSSIBLE LEFT ATRIAL ENLARGEMENT [-0.1mV P-WAVE IN V1/V2] LOW QRS VOLTAGE IN PRECORDIAL LEADS [QRS DEFLECTION < 1.0 mV IN CHEST LEADS] POSSIBLE ANTERIOR MYOCARDIAL INFARCTION , OF INDETERMINATE AGE [30 ms Q WAVE IN V3/V4, OR R < 0.2 mV IN V4] MODERATE T-WAVE ABNORMALITY, CONSIDER INFERIOR ISCHEMIA [-0.1+ mV T-WAVE IN II/aVF] Compared to ECG 07/10/2024 16:28:40 T-wave abnormality now present Possible ischemia now present First degree AV block no longer present Myocardial infarct finding still present Electronically Signed On 07-11-2024 19:07:39 CDT by MIKY VARGAS [email or web address]
--- NOTE | 2024-07-10 22:01 | PC.PHAR ---
HEPARIN DRIP FOR PE: DR RODARTE IS CONCERNED THE HEPARIN WEIGHT BASED PROTOCOL DOES NOT ADDRESS PE APPROPRIATELY. WILL ORDER LOVENOX WEIGHT BASED DOSE INSTEAD. PATIENT IS TO BE TRANSFERRED TO ICU
[2024-07-10 22:16] LABS: Anion Gap 24.1 (5-19); Blood Urea Nitrogen 60 mg/dL (8-23); Calcium 6.5 mg/dL (8.5-10.5); Carbon Dioxide 11 mmol/L (22-29); Chloride 95 mmol/L (98-107); Creatinine Clr Calc Pharmacy 16.8272; Glucose 261 mg/dL (65-115); Osmolality Calculated 290 mOsm/kg (285-295); Potassium 3.1 mmol/L (3.5-5.1); Sodium 127 mmol/L (136-145)
[2024-07-10] MEDS: calcium gluconate 0.9% NaCL 1 GM/50 ML PREMIX IV ×2 (22:56→23:45)
[2024-07-10 23:14] LABS: Magnesium 1.7 mg/dL (1.7-2.3)
[2024-07-10] MEDS: heparin 5,000 unit/mL INJ 1 mL IVP (23:44)
[2024-07-10] MEDS: methylPREDNISolone sod succ 40 mg/mL INJ IVP (23:44)
[2024-07-10] MEDS: heparin drip 25,000 UNIT/500 ML PREMIX 20 UNIT IV (23:46)
[2024-07-11] VITALS (13 sets, daily range): BP systolic 94–142; BP diastolic 57–76; PULSE 79–100; RESP 17–27; TEMP 36.2–36.5; O2SAT 98–100
[2024-07-11] MEDS: ipratropium-albuterol 3 mL Neb INHALATION ×4 (03:15→20:46)
[2024-07-11 04:00] LABS: Glucose Point of Care 237 mg/dL (70-110)
[2024-07-11] MEDS: methylPREDNISolone sod succ 40 mg/mL INJ IVP ×4 (05:02→23:59)
[2024-07-11] MEDS: pantoprazole 40 mg SDV IVP ×2 (05:03→19:05)
[2024-07-11] MEDS: gabapentin 100 mg Capsule PO (05:03)
[2024-07-11] MEDS: aspirin 81 mg EC Tablet PO (05:03)
[2024-07-11 06:16] LABS: Basophils % 0.1 %; Hematocrit 25.6 % (36-47); Lymphocytes # 0.3 10^3/uL (0.8-4.8); Lymphocytes % 3.9 %; Mean Corpuscular HGB Conc 32.4 g/dL (30-55); Mean Corpuscular Hemoglobin 28.3 pg (27-33); Mean Corpuscular Volume 87.4 fl (85-98); Mean Platelet Volume 9.1 fL (7.4-10.4); Monocytes # 0.1 10^3/uL (0.2-0.9); Monocytes % 1.7 %; Neutrophils # 7.53 10^3/uL (1.8-7.7); Neutrophils % 90.7 %; Nucleated Red Blood Cells % 0 %; Platelet Count 408 10^3/cmm (157-399); Red Blood Count 2.93 10^6/uL (3.85-5.65); Red Cell Distribution Width 14.5 % (12.1-15.1)
--- NOTE | 2024-07-11 06:20 | PC.NURSE ---
Patient does not want Ugalde catheter at this time. She stated she got an infection the one time she had a catheter and would like to avoid that happening again . Provided patient with bedside commode. 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
[2024-07-11 06:44] LABS: Alanine Aminotransferase 47 U/L (0-33); Albumin Level 3.2 g/dL (3.5-5.2); Alkaline Phosphatase 127 U/L (35-105); Anion Gap 25.3 (5-19); Aspartate Amino Transferase 63 U/L (0-32); Blood Urea Nitrogen 53 mg/dL (8-23); Calcium 6.9 mg/dL (8.5-10.5); Chloride 98 mmol/L (98-107); Creatinine Clr Calc Pharmacy 20.6331; Globulin 3.5 g/dL (1.3-4.6); Glucose 206 mg/dL (65-115); Magnesium 1.3 mg/dL (1.7-2.3); Osmolality Calculated 288 mOsm/kg (285-295); Phosphorus 2.5 mg/dL (2.5-4.5); Potassium 3.3 mmol/L (3.5-5.1); Sodium 129 mmol/L (136-145); Total Bilirubin 0.2 mg/dL (0.15-1.2); Total Protein 6.7 g/dL (6.6-8.7)
[2024-07-11 06:45] LABS: Carbon Dioxide 9 mmol/L (22-29)
[2024-07-11 06:52] LABS: Partial Thromboplastin Time 164.2 SECONDS (23.9-36.7)
[2024-07-11 07:04] LABS: Chol HDL Ratio 1.66 mg/dL (0.0-4.40); Cholesterol 93 mg/dL (0-200); HDL Cholesterol 56 mg/dL (60-100); LDL Cholesterol Calculated 26 mg/dL (50-129); LDL HDL Ratio 0.46 RATIO (0.00-3.22); Triglycerides 57 mg/dL (0-150)
[2024-07-11] MEDS: budesonide 0.5 mg/2 mL Neb INHALATION ×2 (07:46→20:46)
--- NOTE | 2024-07-11 08:20 | USCV_ITS ---
Nika Spears Age: 73 Gender: F : 1950 Exam Date: 07/11/2024 10:04 Ordering Phys: Bentley Oneal MD Technologist: Aquilino Calix Exam Location: [facility] [place] Indication: Concern for possible CHF BP: 109 / 60 HR: 110 Rhythm: Sinus Technical Quality: Adequate MEASUREMENTS (Male / Female) Normal Values 2D ECHO LV Diastolic Diameter PLAX 4.8 cm 4.2 - 5.9 / 3.9 - 5.3 cm IVS Diastolic Thickness 0.9 cm 0.6 - 1.0 / 0.6 - 0.9 cm IVS Systolic Thickness 1.3 cm LVPW Diastolic Thickness 1.5 cm 0.6 - 1.0 / 0.6 - 0.9 cm LVPW Systolic Thickness 2.4 cm LVOT Diameter 2.0 cm LV Ejection Fraction 2D Teich 71.5 % LV Ejection Fraction MOD 4C 80.3 % LV Ejection Fraction MOD 2C 61.6 % LV Ejection Fraction 2C AL 65.2 % LA Diameter 3.0 cm RA Systolic Volume 4C AL 38.3 ml RA Systolic Volume 4C MOD 37.5 ml LA Sys Volume AL 51.9 cm cubed LA Sys Volume Index AL 27.0 cm cubed/m squared Aorta at Sinotubular Diameter 2.0 cm IVC Diameter 1.9 cm M-MODE LA Ao Ratio MM 1.6 AV Cusp Separation MM 1.3 cm DOPPLER AV Peak Velocity 172.0 cm/s LVOT Peak Velocity 128.0 cm/s AV Area Cont Eq vti 2.4 cm squared AV Area Cont Eq pk 2.4 cm squared MV Peak Velocity 179.0 cm/s TV Peak Velocity 250.5 cm/s TR Peak Velocity 297.0 cm/s TR Peak Gradient 35.3 mmHg TR Mean Velocity 244.0 cm/s TR Mean Gradient 25.2 mmHg TR Velocity Time Integral 54.5 cm PV Peak Velocity 122.3 cm/s RV Ejection Time 0.3 s FINDINGS Left Ventricle Normal left ventricular size, systolic function and wall thickness, with no regional wall motion abnormalities. Left ventricular ejection fraction is estimated at 60 %. Grade II/IV diastolic dysfunction, moderately elevated filling pressures. Right Ventricle The right ventricle is normal in size and function. Right Atrium The right atrium is normal in size. Left Atrium The left atrium is normal in size. Mitral Valve Mildly thickened mitral valve. No mitral valve stenosis. Mild to moderate mitral valve regurgitation. Aortic Valve Mild aortic valve calcification. No aortic valve stenosis. Trace aortic valve regurgitation. Tricuspid Valve Thickened tricuspid valve. No tricuspid valve stenosis. Mild to moderate tricuspid valve regurgitation. Pulmonic Valve Trace pulmonary valve regurgitation. Pericardium Normal pericardium without effusion. Aorta Normal ascending aorta dimension. IVC The inferior vena cava appears normal. CONCLUSIONS Normal left ventricular size, systolic function and wall thickness, with no regional wall motion abnormalities. Left ventricular ejection fraction is estimated at 60 %. Grade II/IV diastolic dysfunction, moderately elevated filling pressures. Mildly thickened mitral valve. No mitral valve stenosis. Mild to moderate mitral valve regurgitation. Mild aortic valve calcification. No aortic valve stenosis. Trace aortic valve regurgitation. Thickened tricuspid valve. No tricuspid valve stenosis. Mild to moderate tricuspid valve regurgitation. There is no pericardial effusion. Right atrial pressure is around 5 mm of mercury. Cinda Pulido MD (Electronically Signed) Final Date: 11 Jul 2024 13:09 S
[2024-07-11 08:23] LABS: Folate Level 15.3 ng/mL (4.8-37.3)
[2024-07-11 08:27] LABS: ABG PH Result 7.26 (7.35-7.45); Alveolar-Arterial Oxygen Gradi 6.9 mmHg (5-10); Arterial Blood Gas Hematocrit 30.2 % (37-47); Base Excess ABG -16.6 mmol/L (-2.0-2.0); Blood Gas Allen Test Pos; Blood Gas Operator Identificat MONRO; Blood Gas Sample Site Radial, left; Blood Gas Sample Type Arterial; Carboxyhemoglobin 0.7 %THgb (0.4-20.1); HCO3 ABG 8.5 mmol/L (22-26); Methemoglobin 1.2 % (0.4-1.5); Oxygen Device NC; Oxygen Saturation ABG 96.8; PO2 ABG 92.4 mmHg (80.0-100.0); PO2 FiO2 Ratio Arterial Blood 385; Potassium Level - ABG 3.4 mmol/L (3.5-5.0); Total Hemoglobin 9.9 g/dL (12-16)
[2024-07-11 08:28] LABS: ABG PCO2 18.9 mmHg (35-45)
[2024-07-11] MEDS: magnesium sulfate premix 2 GM/50 ML PIGGYBACK IV (09:04)
[2024-07-11] MEDS: phenyleph-mineral oil-petrolat Oint 28 gm 1 APPLIC PR (09:05)
[2024-07-11] MEDS: potassium chloride ER 20 mEq Tablet 40 MEQ PO (09:05)
[2024-07-11] MEDS: docusate sodium 100 mg Capsule PO ×2 (09:05→18:58)
[2024-07-11] MEDS: metoprolol tartrate 50 mg Tablet PO ×2 (09:05→19:05)
--- NOTE | 2024-07-11 10:21 | PC.NURSE ---
Physician orders: Pause heparin gtt for 3 hours. Heparin was turned off at 0630am. Resumed now. Orders to resume at half the previous rate. Heparin gtt running at 10ml/hr now. Ptt in 6 hours
--- NOTE | 2024-07-11 11:19 | P.PN_ITS ---
Subjective 2 Subjective: No acute events overnight. Today morning patient seen sitting comfortably in chair. States she is feeling better. Work of breathing seems to have decreased. Denies any nausea, vomiting, headache. Vitals/I&O/Wt Last Vital Signs Temp 97.3 F L 07/11/24 08:00 Pulse 99 07/11/24 08:00 Resp 18 07/11/24 08:00 BP 133/76 07/11/24 08:00 Pulse Ox 99 07/11/24 08:00 O2 Del Method Nasal Cannula 07/11/24 08:00 O2 Flow Rate 2 07/11/24 08:00 07/10/24 07/11/24 07/11/24 22:59 06:59 14:59 Intake Total 1200 / 1200 1688.166 / 2888.166 410 / 410 Output Total 400 / 400 150 / 150 Balance 1200 / 1200 1288.166 / 2488.166 260 / 260 Weight last 48 hrs Weight 80.286 kg Weight 80.286 kg Weight 78.5 kg Weight 72.575 kg Weight 72.575 kg Physical Exam 2 Narrative: General: In mild distress because difficulty in breathing, sick appearing, tachypneic, HEENT: PERRLA, pupils bilaterally equal and reactive Chest: Bilateral bronchial breath sounds all lung zaragoza with occasional rhonchi, decreased air entry bilateral lower zone CVS: S1-S2 regular, no murmurs, no tachycardia, no gallops, no rubs Abdomen: Soft, nontender, no organomegaly, bowel sounds present Neuro: No focal deficits, no facial deformity, AO x3, power 5/5 in all limbs Data 07/11/24 06:04 07/11/24 06:04 Micro: Microbiology 07/10/24 18:21 Blood Culture - Preliminary Blood SPECIMEN COLLECTED 07/10/24 18:15 Blood Culture - Preliminary Blood SPECIMEN COLLECTED A&P Assessment and plan (1) Acute renal failure: Baseline creatinine 1.2-1.5. Associated with metabolic acidosis, hyponatremia, hypokalemia. Most likely in setting of increased diuretics, home use of valsartan, NSAIDs and dehydration. Creatinine trending down to 2.4. CT abdomen pelvis negative for obstructive nephropathy. Did seem to have urinary retention on bladder scanning. Patient refused Ugalde catheter yesterday. Today is agreeable. Medical reconciliation done for nephrotoxic drugs. Continue with IV fluids at 100 cc/h. (2) Hypokalemia: Replace 40 mill equivalents more of potassium today. Repeat BMP in afternoon. (3) Hypomagnesemia: Overall received 4 g of IV magnesium overnight. Up to 1.3 today. Replace 2 g of IV magnesium more. (4) Metabolic acidosis: Repeat ABG today morning shows persistent metabolic acidosis. Bicarb on labs today down to 9. Will start on bicarb drip at 100 cc/h. (5) Exertional shortness of breath: Unknown cause. Could be in setting of pulmonary embolism or COPD exacerbation. Patient is a former smoker. Denies any history of COPD though it is mentioned in her problem list. Has had multiple workup as an outpatient over the last 1 month including Lexiscan stress test on 07/06 which was negative for acute ischemia. D-dimer found to be more than 11. Had VQ scan done as an outpatient which was low probability for VTE. Had lower limb Doppler negative for DVT. Last echocardiogram back in March showed normal EF with normal RV functions with PASP of 37 mmHg. Less likelihood in setting of CHF. Will repeat echocardiogram limited for EF. CT chest negative for acute consolidation or pleural effusion. Patient states she feels slightly better on COPD exacerbation but still has exertional dyspnea and having increased work of breathing on minimal exertion. Continue Pulmicort twice daily, DuoNeb every 6 hour. Solu-Medrol 40 mg every 6 hour. Sputum culture not collected. MRSA swab not collected yet. For now hold off on starting antibiotics until confirmed consolidation on CT. Given D-dimer there is a high chance of pulmonary embolism. Discussed in detail with the patient regarding presumptive PE and starting on anticoagulation though she does have a remote history of gastric ulcer. Hemoglobin lately stable. We discussed presumptive PE diagnosis as all the other workup as an outpatient has been negative if CT chest does not show any consolidation or she does not show any improvement with treatment for COPD and starting on anticoagulation though she would be at a risk of GI bleed given her past history. Patient verbalizes understanding and would like to think further before agreeing for anticoagulation. Patient for now is agreeable for anticoagulation while monitoring hemoglobin. Continue with heparin drip. Monitor PTT. Repeat echocardiogram done shows EF of 60% with grade 2 diastolic dysfunction without concerns for right-sided heart strain. (6) Transaminitis: CT abdomen pelvis negative for acute liver disorder. LFTs stable. Hepatitis panel negative. Holding off on statins. Monitor daily. (7) Coronary artery disease: No active chest pain. Continue with home dose of aspirin. Hold off on statin for now. Continue with home dose of metoprolol. (8) Hypertension: Goal blood pressure less than 140/90 mmHg. Continue with home dose of metoprolol for now. Holding off on ARB. Will uptitrate as for goal blood pressure. (9) COPD (chronic obstructive pulmonary disease): (10) Chronic hyponatremia: Chronically sodium around 123-129. Improved to 129. Monitor daily. Plan Urinary retention: Found to have 800 cc of urine on bladder scan. Ugalde placed. 1 L of urine evacuated. Started on Flomax 0.4 mg daily. CODE STATUS: Discussed and with the patient. Full code. Protonix 40 mg Q12 hourly. Heparin 5000 every 12 hourly for DVT prophylaxis Renal nondialysis diet Restart other home medications. PDMP PDMP Reviewed: Not Reviewed Attestations 2 Medical Necessity Statement*: Requires further hospitalization for management of acute kidney injury with metabolic acidosis, hypokalemia, hypomagnesemia with concerns of exertional shortness of breath with high concerns for PE Diagnoses Acute renal failure N17.9 Hypokalemia E87.6 Hypomagnesemia E83.42 Metabolic acidosis E87.20 Exertional shortness of breath R06.02 Transaminitis R74.01 Coronary artery disease involving [place] coronary artery of [place] heart without angina pectoris I25.10 Associated angina: without angina Coronary Disease-Associated Artery/Lesion type: [place] artery [place] vs. transplanted heart: [place] heart Hypertension, unspecified type I10 Hypertension type: unspecified Chronic obstructive pulmonary disease, unspecified COPD type J44.9 COPD type: unspecified COPD Chronic hyponatremia E87.1
[2024-07-11] MEDS: sodium bicarbonate 150 MEQ in dextrose 5% 1,000 ML 100 MEQ IV ×2 (11:30→21:56)
[2024-07-11] MEDS: insulin lispro 100 unit/1 mL SUBCUT ×2 (12:47→18:58)
[2024-07-11 13:03] LABS: Glucose Point of Care 294 mg/dL (70-110)
[2024-07-11] MEDS: tamsulosin 0.4 mg Capsule PO (14:23)
[2024-07-11 15:47] LABS: Anion Gap 22.9 (5-19); Blood Urea Nitrogen 45 mg/dL (8-23); Calcium 6.9 mg/dL (8.5-10.5); Carbon Dioxide 11 mmol/L (22-29); Chloride 98 mmol/L (98-107); Creatinine Clr Calc Pharmacy 23.5807; Glucose 134 mg/dL (65-115); Osmolality Calculated 280 mOsm/kg (285-295); Potassium 3.9 mmol/L (3.5-5.1); Sodium 128 mmol/L (136-145)
[2024-07-11 16:44] LABS: MRSA PCR OZH (swab) NOT DETECTED (Not Detecte)
[2024-07-11 17:32] LABS: Glucose Point of Care 150 mg/dL (70-110)
[2024-07-11] MEDS: TRAMadol 50 mg Tablet 100 MG PO (20:50)
[2024-07-11] MEDS: ALPRAZolam 0.5 mg Tablet 0.25 MG PO (20:50)
[2024-07-11 22:17] LABS: Glucose Point of Care 156 mg/dL (70-110)
[2024-07-11 23:45] LABS: Partial Thromboplastin Time 58.7 SECONDS (23.9-36.7)
[2024-07-12] VITALS (10 sets, daily range): BP systolic 106–142; BP diastolic 49–72; PULSE 62–89; RESP 17–22; TEMP 36.1–36.8; O2SAT 95–100
[2024-07-12] MEDS: gabapentin 100 mg Capsule PO (05:27)
[2024-07-12] MEDS: pantoprazole 40 mg SDV IVP ×2 (05:27→17:01)
[2024-07-12] MEDS: methylPREDNISolone sod succ 40 mg/mL INJ IVP (05:27)
[2024-07-12] MEDS: aspirin 81 mg EC Tablet PO (05:27)
[2024-07-12 06:08] LABS: Glucose Point of Care 144 mg/dL (70-110)
[2024-07-12 06:42] LABS: Basophils % 0.1 %; Hematocrit 24.6 % (36-47); Lymphocytes # 0.8 10^3/uL (0.8-4.8); Lymphocytes % 5.3 %; Mean Corpuscular HGB Conc 34.1 g/dL (30-55); Mean Corpuscular Hemoglobin 28.7 pg (27-33); Mean Platelet Volume 8.9 fL (7.4-10.4); Monocytes # 1.1 10^3/uL (0.2-0.9); Monocytes % 6.7 %; Neutrophils % 86.4 %; Nucleated Red Blood Cells % 0 %; Platelet Count 455 10^3/cmm (157-399); Red Blood Count 2.93 10^6/uL (3.85-5.65); Red Cell Distribution Width 14.3 % (12.1-15.1); White Blood Count 15.76 10^3/uL (3.29-11.43)
[2024-07-12 06:46] LABS: Partial Thromboplastin Time 52.1 SECONDS (23.9-36.7)
[2024-07-12 06:50] LABS: Alanine Aminotransferase 54 U/L (0-33); Albumin Level 3.1 g/dL (3.5-5.2); Alkaline Phosphatase 136 U/L (35-105); Anion Gap 19.3 (5-19); Aspartate Amino Transferase 61 U/L (0-32); Blood Urea Nitrogen 39 mg/dL (8-23); Calcium 6.7 mg/dL (8.5-10.5); Carbon Dioxide 19 mmol/L (22-29); Chloride 98 mmol/L (98-107); Creatinine Clr Calc Pharmacy 32.8657; Globulin 3.2 g/dL (1.3-4.6); Glucose 122 mg/dL (65-115); Magnesium 1.3 mg/dL (1.7-2.3); Osmolality Calculated 287 mOsm/kg (285-295); Phosphorus 1.4 mg/dL (2.5-4.5); Potassium 3.3 mmol/L (3.5-5.1); Sodium 133 mmol/L (136-145); Total Bilirubin 0.2 mg/dL (0.15-1.2); Total Protein 6.3 g/dL (6.6-8.7)
[2024-07-12] MEDS: insulin lispro 100 unit/1 mL SUBCUT ×2 (08:54→12:49)
[2024-07-12] MEDS: magnesium oxide 400 mg tablet PO ×2 (08:55→17:01)
[2024-07-12] MEDS: docusate sodium 100 mg Capsule PO ×2 (08:55→17:01)
[2024-07-12] MEDS: metoprolol tartrate 50 mg Tablet PO ×2 (08:55→17:01)
[2024-07-12] MEDS: potassium chloride ER 20 mEq Tablet 40 MEQ PO (08:55)
[2024-07-12] MEDS: tamsulosin 0.4 mg Capsule PO (08:55)
[2024-07-12] MEDS: magnesium sulfate premix 2 GM/50 ML PIGGYBACK IV (08:55)
[2024-07-12] MEDS: phenyleph-mineral oil-petrolat Oint 28 gm 1 APPLIC PR (08:56)
--- NOTE | 2024-07-12 09:28 | PM.PN ---
Subjective Subjective: No acute events overnight. Patient states she is feeling a lot better. Denies any nausea, vomiting, headache. States breathing seems to have improved quite a bit. States feels as if pressure has been lifted off for chest. Vitals/I&O/Wt Last Vital Signs Temp 97.2 F L 07/12/24 08:00 Pulse 82 07/12/24 08:00 Resp 22 H 07/12/24 08:00 BP 142/66 07/12/24 08:00 Pulse Ox 96 07/12/24 08:00 O2 Del Method Nasal Cannula 07/12/24 08:00 O2 Flow Rate 2 07/12/24 08:00 07/11/24 07/12/24 07/12/24 22:59 06:59 14:59 Intake Total 1468.166 / 2118.166 76.083 / 2194.249 339.55 / 339.55 Output Total 650 / 800 1100 / 1900 Balance 818.166 / 1318.166 -1023.917 / 294.249 339.55 / 339.55 Weight last 48 hrs Weight 79.577 kg Weight 80.286 kg Weight 80.286 kg Weight 78.5 kg Weight 72.575 kg Weight 72.575 kg Physical Exam Narrative: General: In no acute distress, AO x 3, sick appearing HEENT: PERRLA, pupils bilaterally equal and reactive Chest: Bilateral bronchial breath sounds all lung zaragoza with occasional rhonchi, decreased air entry bilateral lower zone CVS: S1-S2 regular, no murmurs, no tachycardia, no gallops, no rubs Abdomen: Soft, nontender, no organomegaly, bowel sounds present Neuro: No focal deficits, no facial deformity, AO x3, power 5/5 in all limbs Urinary Catheter Management: Ugalde: Cath Placed During This Visit: no Reason for Continuing Indwelling Catheter: Other Data 07/12/24 06:23 07/12/24 06:23 Micro: Microbiology 07/10/24 18:21 Blood Culture - Preliminary Blood NEGATIVE TO DATE 07/10/24 18:15 Blood Culture - Preliminary Blood NEGATIVE TO DATE A&P Assessment and plan (1) Acute renal failure: Baseline creatinine 1.2-1.5. Associated with metabolic acidosis, hyponatremia, hypokalemia. Most likely in setting of increased diuretics, home use of valsartan, NSAIDs and dehydration. Creatinine down to baseline of 1.5. CT abdomen pelvis negative for obstructive nephropathy. Found to have urinary retention. Continue with Ugalde catheter. Medical reconciliation done for nephrotoxic drugs. Stop bicarb drip. Bicarb level elevated. Acidosis has resolved. (2) Hypokalemia: Potassium found to be 3.3. Replaced with 40 mg of oral potassium. Will recheck in afternoon. (3) Hypomagnesemia: Improving. Replace 2 g of IV magnesium. Monitor daily. Does have hypocalcemia today. Check ionized calcium, PTH, vitamin D levels. For now hold off on replacing. (4) Metabolic acidosis: Resolved. Bicarb level improved to 19 on BMP. Stop bicarb drip. Encouraged patient to increase oral intake of liquids. (5) Exertional shortness of breath: Unknown cause. Could be in setting of pulmonary embolism or COPD exacerbation. Patient is a former smoker. Denies any history of COPD though it is mentioned in her problem list. Has had multiple workup as an outpatient over the last 1 month including Lexiscan stress test on 07/06 which was negative for acute ischemia. D-dimer found to be more than 11. Had VQ scan done as an outpatient which was low probability for VTE. Had lower limb Doppler negative for DVT. Last echocardiogram back in March showed normal EF with normal RV functions with PASP of 37 mmHg. Less likelihood in setting of CHF. Will repeat echocardiogram limited for EF. CT chest negative for acute consolidation or pleural effusion. Improving. Most likely multifactorial with combination of a possible PE, COPD exacerbation along with acidotic breath given acidosis on admission. Improving now. Patient states she feels slightly better on COPD exacerbation but still has exertional dyspnea and having increased work of breathing on minimal exertion. Continue Pulmicort twice daily, DuoNeb every 6 hour. Switch to prednisone 40 mg oral daily. Sputum culture not collected. MRSA swab negative. For now hold off on starting antibiotics until confirmed consolidation on CT. Given D-dimer there is a high chance of pulmonary embolism. Discussed in detail with the patient regarding presumptive PE and starting on anticoagulation though she does have a remote history of gastric ulcer. Hemoglobin lately stable. We discussed presumptive PE diagnosis as all the other workup as an outpatient has been negative if CT chest does not show any consolidation or she does not show any improvement with treatment for COPD and starting on anticoagulation though she would be at a risk of GI bleed given her past history. Patient verbalizes understanding and would like to think further before agreeing for anticoagulation. Patient for now is agreeable for anticoagulation while monitoring hemoglobin. Continue with heparin drip. Monitor PTT. Repeat echocardiogram done shows EF of 60% with grade 2 diastolic dysfunction without concerns for right-sided heart strain. (6) Transaminitis: CT abdomen pelvis negative for acute liver disorder. LFTs stable. Hepatitis panel negative. Holding off on statins. Monitor daily. (7) Coronary artery disease: No active chest pain. Continue with home dose of aspirin. Hold off on statin for now. Continue with home dose of metoprolol. (8) Hypertension: Goal blood pressure less than 140/90 mmHg. Continue with home dose of metoprolol for now. Holding off on ARB. Will uptitrate as for goal blood pressure. Blood pressure slightly elevated today. If continues to remain elevated can start low-dose of amlodipine versus isosorbide (9) COPD (chronic obstructive pulmonary disease): (10) Chronic hyponatremia: Chronically sodium around 123-129. Resolved. Up to 133 now. Plan Urinary retention: Found to have 800 cc of urine on bladder scan. Ugalde placed. 1 L of urine evacuated. Started on Flomax 0.4 mg daily. Most likely will discharge with Ugalde catheter in place and follow-up with urology as an outpatient. Patient is agreeable. CODE STATUS: Discussed and with the patient. Full code. Protonix 40 mg Q12 hourly. Heparin 5000 every 12 hourly for DVT prophylaxis Renal nondialysis diet Restart other home medications. PDMP PDMP Reviewed: Not Reviewed Attestations Medical Necessity Statement*: Requires further hospitalization for management of FRITZ on CKD, multiple electrolyte abnormalities with hypocalcemia, hypokalemia, hypomagnesemia, exertional shortness of breath with concerns for PE Diagnoses Acute renal failure N17.9 Hypokalemia E87.6 Hypomagnesemia E83.42 Metabolic acidosis E87.20 Exertional shortness of breath R06.02 Transaminitis R74.01 Coronary artery disease involving [place] coronary artery of [place] heart without angina pectoris I25.10 Coronary Disease-Associated Artery/Lesion type: [place] artery [place] vs. transplanted heart: [place] heart Associated angina: without angina Hypertension, unspecified type I10 Hypertension type: unspecified Chronic obstructive pulmonary disease, unspecified COPD type J44.9 COPD type: unspecified COPD Chronic hyponatremia E87.1
--- NOTE | 2024-07-12 10:14 | PC.CHAP ---
Pastoral Care Encounter/Spiritual Assessment Type of Contact [] Declined evp sales visit [] Patient/Family/Request visit [] Outpatient visit [] Follow-up visit [] Physician referral [] Code/Alert [x] Routine visit [] Staff referral [] Actively dying [] Patient sleeping [] Family support [] [] Out of room [] Palliative care [] [] Receiving care in room [] Pre-surgical visit [] Trauma [] Long length of stay [] ICU visit [] Other: Relational/Emotional Strength [x] Patient feels connected with others/family/visitors/staff [] Distress [] Loneliness/isolation [] Abandonment Spirituality of Patient [x] Person of Destiny [] Attends Restoration of their Destiny [x] Believes in Prayer [] Reads Bible or Baptist materials [] There are Spiritual issues to be addressed 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 Interventions [x] Prayer [x] Active listening [x] Non-anxious presence [x] Spiritual/emotional support [] Crisis/trauma care [] Spiritual counseling [] Bereavement support [] Provided bereavement packet [] Provided Bible/devotional materials [] Provided toy/stuffed animal, coloring book to patient or family member [] Provided Communion [] Anointing/[place] [] Salvation [x] Completed spiritual assessment [] Other: Impact on Illness or Injury [] Angry [] Fearful [] Anxious [] Often cries [] Exhaustion [] Unable to work [] Unable to attend judaism [] Unable to walk/stand [] Unable to read [] Unable to drive [] Unable to eat/drink [] Unable to sleep [] Unable to be with family [] Patient intubated [] Other: Summary Time spent with patient 5 min
--- NOTE | 2024-07-12 10:23 | PC.RESP ---
This therapist busy on other floor, medication missed at this time.
[2024-07-12 11:03] LABS: Ionized Calcium 0.9 mmol/L (1.1-1.4)
[2024-07-12 11:22] LABS: Calcium 6.5 mg/dL (8.5-10.5)
[2024-07-12 11:30] LABS: Parathyroid Hormone 217.4 pg/mL (15-65)
[2024-07-12 11:36] LABS: 25 Hydroxy Vitamin D 20 ng/mL (30-100)
[2024-07-12 12:09] LABS: Glucose Point of Care 202 mg/dL (70-110)
[2024-07-12] MEDS: calcium gluconate 0.9% NaCL 1 GM/50 ML PREMIX IV (12:49)
[2024-07-12] MEDS: ipratropium-albuterol 3 mL Neb INHALATION ×2 (15:13→19:34)
[2024-07-12 16:32] LABS: Partial Thromboplastin Time 41.3 SECONDS (23.9-36.7)
[2024-07-12 16:40] LABS: Blood Urea Nitrogen 37 mg/dL (8-23); Carbon Dioxide 18 mmol/L (22-29); Chloride 100 mmol/L (98-107); Creatinine Clr Calc Pharmacy 37.9219; Glucose 125 mg/dL (65-115); Osmolality Calculated 288 mOsm/kg (285-295); Sodium 134 mmol/L (136-145)
[2024-07-12] MEDS: heparin drip 25,000 UNIT/500 ML PREMIX 12 UNIT IV (16:58)
[2024-07-12] MEDS: morphine 4 mg/mL SDV 1 mL 2 MG IVP (17:09)
[2024-07-12 17:32] LABS: Glucose Point of Care 110 mg/dL (70-110)
[2024-07-12] MEDS: budesonide 0.5 mg/2 mL Neb INHALATION (19:35)
[2024-07-12] MEDS: ALPRAZolam 0.5 mg Tablet 0.25 MG PO (20:24)
[2024-07-12] MEDS: TRAMadol 50 mg Tablet 100 MG PO (20:24)
[2024-07-12 20:51] LABS: Glucose Point of Care 128 mg/dL (70-110)
[2024-07-12 23:35] LABS: Partial Thromboplastin Time 81.4 SECONDS (23.9-36.7)
[2024-07-13] VITALS (9 sets, daily range): BP systolic 109–121; BP diastolic 54–61; PULSE 69–81; RESP 15–18; TEMP 36.4–36.9; O2SAT 95–98; BMI 31.1
[2024-07-13] MEDS: ipratropium-albuterol 3 mL Neb INHALATION ×2 (02:06→07:40)
[2024-07-13] MEDS: aspirin 81 mg EC Tablet PO (05:02)
[2024-07-13] MEDS: gabapentin 100 mg Capsule PO (05:02)
[2024-07-13] MEDS: pantoprazole 40 mg SDV IVP (05:02)
[2024-07-13 06:36] LABS: Basophils % 0.1 %; Eosinophils # 0.1 10^3/uL (0.0-0.8); Eosinophils % 0.6 %; Hematocrit 27.4 % (36-47); Lymphocytes # 2.4 10^3/uL (0.8-4.8); Lymphocytes % 18.9 %; Mean Corpuscular HGB Conc 32.8 g/dL (30-55); Mean Corpuscular Hemoglobin 28.5 pg (27-33); Mean Corpuscular Volume 86.7 fl (85-98); Mean Platelet Volume 8.6 fL (7.4-10.4); Monocytes # 0.9 10^3/uL (0.2-0.9); Monocytes % 7.2 %; Neutrophils # 9.26 10^3/uL (1.8-7.7); Neutrophils % 71.8 %; Nucleated Red Blood Cells % 0 %; Platelet Count 453 10^3/cmm (157-399); Red Blood Count 3.16 10^6/uL (3.85-5.65); Red Cell Distribution Width 14.7 % (12.1-15.1)
[2024-07-13 06:45] LABS: Glucose Point of Care 110 mg/dL (70-110)
[2024-07-13 06:57] LABS: Partial Thromboplastin Time 82.5 SECONDS (23.9-36.7)
[2024-07-13 07:00] LABS: Alanine Aminotransferase 52 U/L (0-33); Albumin Level 3.2 g/dL (3.5-5.2); Alkaline Phosphatase 134 U/L (35-105); Anion Gap 18.9 (5-19); Aspartate Amino Transferase 44 U/L (0-32); Blood Urea Nitrogen 34 mg/dL (8-23); Calcium 7.5 mg/dL (8.5-10.5); Carbon Dioxide 19 mmol/L (22-29); Chloride 99 mmol/L (98-107); Creatinine Clr Calc Pharmacy 41.0821; Globulin 3.2 g/dL (1.3-4.6); Glucose 92 mg/dL (65-115); Magnesium 1.6 mg/dL (1.7-2.3); Osmolality Calculated 283 mOsm/kg (285-295); Phosphorus 1.4 mg/dL (2.5-4.5); Potassium 3.9 mmol/L (3.5-5.1); Sodium 133 mmol/L (136-145); Total Bilirubin 0.2 mg/dL (0.15-1.2); Total Protein 6.4 g/dL (6.6-8.7)
[2024-07-13] MEDS: predniSONE 20 mg Tablet 40 MG PO (07:26)
[2024-07-13] MEDS: tamsulosin 0.4 mg Capsule PO (07:26)
[2024-07-13] MEDS: docusate sodium 100 mg Capsule PO (07:26)
[2024-07-13] MEDS: magnesium oxide 400 mg tablet PO (07:26)
[2024-07-13] MEDS: metoprolol tartrate 50 mg Tablet PO (07:26)
[2024-07-13] MEDS: budesonide 0.5 mg/2 mL Neb INHALATION (07:40)
[2024-07-13] MEDS: magnesium sulfate premix 2 GM/50 ML PIGGYBACK IV (08:00)
[2024-07-13] MEDS: lactulose oral liq 20 gm/30 mL UDC 10 GM PO (08:02)
[2024-07-13] MEDS: potassium phosphate (mMol PO4) 30 MMOL in sodium chloride 0.9% (100 ml) 100 ML 25 MMOL IV (08:46)
[2024-07-13] MEDS: ALPRAZolam 0.5 mg Tablet 0.25 MG PO (09:13)
--- NOTE | 2024-07-13 09:22 | P.DS_ITS ---
Discharge Providers Date of Admission: 07/10/24 15:47 Date of Discharge: July 13, 2024 Attending Provider at Admission: Bentley Oneal MD Attending Provider at Discharge: Bentley Oneal MD Primary Care Provider: Mitul Peters DO Diagnoses at Discharge Discharge Diagnosis (1) Acute renal failure: Status: Acute (2) Hypokalemia: Status: Acute (3) Hypomagnesemia: Status: Acute (4) Metabolic acidosis: Status: Acute (5) Exertional shortness of breath: Status: Acute (6) Transaminitis: Status: Acute (7) Coronary artery disease: Status: Acute Qualifiers: Associated angina: without angina Coronary Disease-Associated Artery/Lesion type: [place] artery [place] vs. transplanted heart: [place] heart Qualified Code(s): I25.10 - Atherosclerotic heart disease of [place] coronary artery without angina pectoris (8) Hypertension: Status: Acute Qualifiers: Hypertension type: unspecified Qualified Code(s): I10 - Essential (primary) hypertension (9) COPD (chronic obstructive pulmonary disease): Status: Acute Qualifiers: COPD type: unspecified COPD Qualified Code(s): J44.9 - Chronic obstructive pulmonary disease, unspecified (10) Chronic hyponatremia: Status: Acute Reason for Visit Reason for Visit: sob, weakness Hospital Course Hospital Course Nika Spears is a 73 year old female with past medical history of CAD post PCI to RCA who has been following up with cardiology with difficulty in breathing on exertion for last 1 month for which she has had multiple workup as an outpatient including Lexiscan stress test, VQ scan, lower limb Doppler and had been asked to increase her dose of Lasix to 50 mg oral daily and 20 mg in the afternoon. Patient states her breathing has continued to gotten worse. She came in today because of feeling weak, tired, cramping in her legs which is started happening since her increased dose of Lasix. In the ER she was found to have hypokalemia, worsening of her renal functions. Patient is a former smoker. Denies any nausea, vomiting, headache, chest pain, cough, runny nose, recent travels, sick contact, travel outside [place], history of tuberculosis, known history of COPD. Patient was admitted to the hospital further evaluation and management of significant hypokalemia, hypomagnesemia, hypocalcemia along with acute renal failure with creatinine up to 3.2. Patient has been worked up as an outpatient for difficulty in breathing with multiple test including Lexiscan stress test which was negative for acute ischemia, lower limb Doppler which was negative for DVT, echocardiogram back in March showed normal EF with normal RV function. She was found to have an elevated D-dimer so CTA could not be done because of her renal failure over her CKD. She was started on treatment for renal failure with IV fluids and regular monitoring and replacement of electrolytes. She responded well to the treatment and her gradually her electrolytes metabolic acidosis and renal functions came back to baseline. Given her significant shortness of breath on exertion not improving with complete treatment for COPD exacerbation there was a higher concern for a possible pulmonary embolism. Pneumonia was ruled out with CT chest. Further treatment with presumptive pulmonary embolism diagnosis with anticoagulation was discussed in detail with the patient and her family at bedside along with discussion of risk factors. Family verbalized understanding and patient wanted to be started on heparin drip. While being on heparin drip her hemoglobin remained stable. Her work of breathing and oxygen saturation improved while being on heparin drip and correction of metabolic acidosis with treatment for renal failure. She has been discharged in hemodynamically stable condition with advised to hold off on taking Which her oxygen saturation improved and shortness of breath also improved while her metabolic acidosis improved being on treatment for renal failure. She is not to take her home dose of celecoxib, valsartan. Her home dose of Lasix has been made as needed 20 mg for weight gain of 5 pounds. She was found to have urinary retention for which Frye catheter was placed. Voiding trial is being done prior to discharge. She has been started on Flomax. She is also being discharged on Eliquis for PE protocol for at least next 6 months. Discharge planning discussed in detail with the patient and patient's family at bedside and all the questions were answered. She will continue to take sodium bicarb tablets, magnesium supplementation along with vitamin D and calcium supplementation at home. Physical Exam Narrative: General: In no acute distress, AO x 3, sick appearing HEENT: PERRLA, pupils bilaterally equal and reactive Chest: Bilateral bronchial breath sounds all lung zar[place] with occasional rhonchi, decreased air entry bilateral lower zone CVS: S1-S2 regular, no murmurs, no tachycardia, no gallops, no rubs Abdomen: Soft, nontender, no organomegaly, bowel sounds present Neuro: No focal deficits, no facial deformity, AO x3, power 5/5 in all limbs Urinary Catheter Management: Frye: Cath Placed During This Visit: no Reason for Continuing Indwelling Catheter: Other Discharge Data Studies Completed and Pending Completed Studies During Hospitalization Category [place] [id number] Routine Cat Scan 07/10/24 17:50 Completed XR chest 1V portable [id number] Stat Exams 07/10/24 14:13 Completed CV. echo complete* [id number] Routine Ultrasound 07/11/24 08:20 Completed Pending at discharge Category Date Time Status Blood Culture Stat Lab 07/10/24 18:21 Results PTT [Partial Thromboplastin Time] Timed Lab 07/13/24 13:30 Ordered Platelet Count Q2D Lab 07/14/24 04:00 Ordered Sputum Culture and Gram Stain Stat Lab 07/10/24 17:53 Uncollected Vitamin D 1,25 Dihydroxy Stat Lab 07/12/24 10:30 Received Radiology Impressions Chest X-Ray 07/10/24 14:13 IMPRESSION: No acute findings. Chest/Abdomen/Pelvis CT 07/10/24 17:50 IMPRESSION: 1. Trace left pleural effusion. 2. Severe compression deformity of T8 vertebral body with near complete loss of vertebral body height, progressed in comparison to prior study. IMPRESSION: Multiple nondilated fluid filled loops of small bowel, nonspecific findings but may be seen with enteritis of infectious/inflammatory etiology. Laboratory Results WBC 12.90 10^3/uL (3.29-11.43) H 07/13/24 06:27 RBC 3.16 10^6/uL (3.85-5.65) L 07/13/24 06:27 Hgb 9.00 g/dL (11.27-16.99) L 07/13/24 06:27 Hct 27.4 % (36-47) L 07/13/24 06:27 MCV 86.7 fl (85-98) 07/13/24 06:27 MCH 28.5 pg (27-33) 07/13/24 06: MCHC 32.8 g/dL (30-55) 07/13/24 06:27 RDW 14.7 % (12.1-15.1) 07/13/24 06:27 Plt Count 453 10^3/cmm (157-399) H 07/13/24 06:27 MPV 8.6 fL (7.4-10.4) 07/13/24 06:27 Neut % (Auto) 71.8 % 07/13/24 06:27 Lymph % (Auto) 18.9 % 07/13/24 06:27 Bucks % (Auto) 7.2 % 07/13/24 06:27 Eos % (Auto) 0.6 % 07/13/24 06:27 Baso % (Auto) 0.1 % 07/13/24 06:27 Neut # (Auto) 9.26 10^3/uL (1.8-7.7) H 07/13/24 06:27 Lymph # (Auto) 2.4 10^3/uL (0.8-4.8) 07/13/24 06:27 Bucks # (Auto) 0.9 10^3/uL (0.2-0.9) 07/13/24 06:27 Eos # (Auto) 0.1 10^3/uL (0.0-0.8) 07/13/24 06:27 Baso # (Auto) 0.0 10^3/uL (0.0-0.1) 07/13/24 06: Nucleated RBC % (auto) 0 % 07/13/24 06: Nucleated RBCs # 0.0 /100WBC 07/13/24 06:27 PT 15.90 SECONDS (12.1-14.9) H 07/10/24 20:14 INR 1.19 (0.8-1.2) 07/10/24 20:14 APTT 82.5 SECONDS (23.9-36.7) H 07/13/24 06:27 D-Dimer 9.10 ug/mLFEU (0-0.59) H 07/10/24 20:14 Specimen Type Arterial 07/11/24 08:14 Sample Site Radial, left 07/11/24 08:14 ABG pH 7.26 (7.35-7.45) L 07/11/24 08:14 ABG pCO2 18.9 mmHg (35-45) L* 07/11/24 08:14 ABG pO2 92.4 mmHg (80.0-100.0) 07/11/24 08:14 ABG PO2/FiO2 Ratio 385 07/11/24 08:14 ABG HCO3 8.5 mmol/L (22-26) L 07/11/24 08:14 ABG O2 Saturation 96.8 07/11/24 08:14 ABG Base Excess -16.6 mmol/L (-2.0-2.0) L 07/11/24 08:14 Arturo Test Pos 07/11/24 08:14 A-a O2 Gradient 6.9 mmHg (5-10) 07/11/24 08:14 Hematocrit 30.2 % (37-47) L 07/11/24 08:14 Hgb O2 Saturation 95.0 % (95-100) 07/11/24 08:14 Carboxyhemoglobin 0.7 %THgb (0.4-20.1) 07/11/24 08:14 Methemoglobin 1.2 % (0.4-1.5) 07/11/24 08:14 Total Hemoglobin 9.9 g/dL (12-16) L 07/11/24 08:14 Sodium 130.0 mmol/L (131-143) L 07/11/24 08:14 Potassium 3.4 mmol/L (3.5-5.0) L 07/11/24 08:14 Glucose 219.0 mg/dL (70-115) H 07/11/24 08:14 Ionized Calcium 1.0 mmol/L (1.1-1.4) L 07/11/24 08:14 O2 Delivery Device Nc 07/11/24 08:14 O2 Liters/Min 1.0 % 07/11/24 08:14 FiO2 24.0 % 07/11/24 08:14 Contract Administration Specialist ID [place] 07/11/24 08:14 Sodium 133 mmol/L (136-145) L 07/13/24 06:27 Potassium 3.9 mmol/L (3.5-5.1) 07/13/24 06:27 Chloride 99 mmol/L (98-107) 07/13/24 06:27 Carbon Dioxide 19 mmol/L (22-29) L 07/13/24 06:27 Anion Gap 18.9 (5-19) 07/13/24 06:27 BUN 34 mg/dL (8-23) H 07/13/24 06:27 Creatinine 1.2 mg/dL (0.5-0.9) H 07/13/24 06:27 GFR Calculation Not Reportable 07/13/24 06:27 Glucose 92 mg/dL (65-115) 07/13/24 06:27 POC Glucose 110 mg/dL (70-110) 07/13/24 06:31 Estimat Average Glucose 140 07/10/24 14:33 Hemoglobin A1c 6.5 % (4.0-6.0) H 07/10/24 14:33 Calculated Osmolality 283 mOsm/kg (285-295) L 07/13/24 06:27 Calcium 7.5 mg/dL (8.5-10.5) L 07/13/24 06:27 Ionized Calcium [place] 0.9 mmol/L (1.1-1.4) L 07/12/24 10:30 Phosphorus 1.4 mg/dL (2.5-4.5) L 07/13/24 06: Magnesium 1.6 mg/dL (1.7-2.3) L 07/13/24 06:27 Iron 20 ug/dL (37-145) L 07/10/24 14:33 TIBC 207 mcg/dl 07/10/24 14:33 % Saturation 9.6 % (20-50) L 07/10/24 14:33 Unsat Iron Binding 187 ug/dL (112-347) 07/10/24 14:33 Total Bilirubin 0.2 mg/dL (0.15-1.2) 07/13/24 06:27 GGT 55 U/L (5-36) H 07/10/24 18:15 AST 44 U/L (0-32) H 07/13/24 06:27 ALT 52 U/L (0-33) H 07/13/24 06:27 Alkaline Phosphatase 134 U/L (35-105) H 07/13/24 06:27 Lactate Dehydrogenase 323 U/L (135-214) H 07/10/24 14:33 Troponin T Baseline 77 ng/L (0-10) H 07/10/24 14:33 Troponin T 120 Minute 67.50 ng/L (0-10) H 07/10/24 18:15 Delta Troponin T -9.50 ABS# (0-10) L 07/10/24 18:15 Troponin T Hi Sens 6Hr 63.77 ng/L (0-10) H 07/10/24 20:14 Troponin T Hi Sens 6Hr Delta -13.23 ng/L (0-12) L 07/10/24 20:14 NT-Pro-B Natriuret Pep 1688 pg/mL (0-125) H 07/10/24 14:33 Total Protein 6.4 g/dL (6.6-8.7) L 07/13/24 06:27 Albumin 3.2 g/dL (3.5-5.2) L 07/13/24 06:27 Globulin 3.2 g/dL (1.3-4.6) 07/13/24 06:27 Triglycerides 57 mg/dL (0-150) 07/11/24 06:04 Cholesterol 93 mg/dL (0-200) 07/11/24 06:04 LDL Cholesterol, Calc 26 mg/dL (50-129) L 07/11/24 06:04 HDL Cholesterol 56 mg/dL (60-100) L 07/11/24 06:04 LDL/HDL Ratio 0.46 RATIO (0.00-3.22) 07/11/24 06:04 Cholesterol/HDL Ratio 1.66 mg/dL (0.0-4.40) 07/11/24 06:04 Vitamin B12 836 pg/mL (232-1245) 07/10/24 14:33 25-OH Vitamin D Total 20 ng/mL (30-100) L 07/12/24 10:30 Folate 15.3 ng/mL (4.8-37.3) 07/11/24 06:04 TSH 1.08 uIU/mL (0.27-4.20) 07/10/24 14:33 TSH 1.11 uIU/mL (0.27-4.20) 07/10/24 14:33 PTH Intact 217.4 pg/mL (15-65) H 07/12/24 10:30 PTH Intact Cancelled 07/12/24 10:30 Calcium (PTH Intact) 6.5 mg/dL (8.5-10.5) L 07/12/24 10:30 Calcium (PTH Intact) Cancelled 07/12/24 10:30 Urine Color Yellow (Yellow) 07/10/24 15:21 Urine Appearance Cloudy (CLEAR) A 07/10/24 15:21 Urine pH 6.0 (5-7) 07/10/24 15:21 Ur Specific [place] 1.011 (1.005-1.030) 07/10/24 15:21 Urine Protein 1+ (Negative) A 07/10/24 15:21 Urine Glucose (UA) Negative (Normal) 07/10/24 15:21 Urine Ketones Negative (Negative) 07/10/24 15:21 Urine Blood Negative (Negative) 07/10/24 15:21 Urine Nitrate Negative (Negative) 07/10/24 15:21 Urine Bilirubin Negative (Negative) 07/10/24 15:21 Urine Urobilinogen 0.2 mg/dL (Negative) 07/10/24 15:21 Ur Leukocyte Esterase 2+ (Negative) A 07/10/24 15:21 Urine RBC 0-2 /hpf (0-2) 07/10/24 15:21 Urine WBC 11-20 /hpf (0-5) H 07/10/24 15:21 Ur Squamous Epith Cells 21-50 /hpf (0-5) H 07/10/24 15:21 Amorphous Sediment Not Reportable 07/10/24 15:21 Urine Bacteria 1+ /hpf (NONE) H 07/10/24 15:21 Hyaline Casts 5.77 /lpf 07/10/24 15:21 Nasal MRSA (PCR) Not detected (Not Detecte) 07/11/24 14:40 Hepatitis A IgM Ab Non-reactive (Nonreactive) 07/10/24 14:33 Hep Bs Antigen Non-reactive (Nonreactive) 07/10/24 14:33 Hep Bs Antibody < 3.5 (11.5-1000) L 07/10/24 14:33 Hep B Core Total Ab Non-reactive (Nonreactive) 07/10/24 14:33 Hepatitis C Antibody Non-reactive (Nonreactive) 07/10/24 14:33 Vitals Last Vital Signs Temp 98.3 F 07/13/24 07:31 Pulse 81 07/13/24 07:56 Resp 16 07/13/24 07:42 BP 121/59 07/13/24 07:31 Pulse Ox 96 07/13/24 07:42 O2 Del Method Room Air 07/13/24 07:42 O2 Flow Rate 2 07/12/24 19:35 Discharge Plan Discharge Patient Disposition: Home Condition: Stable Prescriptions: New magnesium oxide 400 mg (241.3 mg magnesium) Tablet 400 mg PO BID 30 Days Qty: 60 0RF prednisone 20 mg Tablet 40 mg PO DAILY 5 Days Qty: 10 0RF calcium citrate-vitamin D3 500 mg-12.5 mcg (500 unit) tablet,chewable 1 tab PO BID@08,16 Qty: 60 0RF tamsulosin 0.4 mg Capsule 0.4 mg PO DAILY 30 Days Qty: 30 0RF Eliquis DVT-PE Treat 30D Start 5 mg (74 tabs) tablets,dose pack See Rx Instructions .ROUTE .COMPLEX Qty: 74 0RF Rx Instructions: orally per package directions sodium bicarbonate 650 mg tablet 650 mg PO BID Qty: 60 0RF Continued amitriptyline 10 mg tablet 10 mg PO BEDTIME (DME) TLSO Brace See Rx Instructions .Route .MEDSUPPLY Qty: 1 0RF Rx Instructions: As directed atorvastatin 20 mg tablet 10 mg PO QPM metoprolol tartrate 100 mg tablet 50 mg PO BID tramadol 50 mg tablet 100 mg PO BEDTIME albuterol sulfate 90 mcg/actuation HFA aerosol inhaler 1 inh INHALATION Q6H PRN (Reason: Shortness Of Breath) fluticasone propionate 50 mcg/actuation spray,suspension 1 spray INTRANASAL DAILY fluticasone furoate-vilanterol [Breo Ellipta] 100-25 mcg/dose blister with device 1 inh INHALATION DAILY lidocaine 5 % ointment 1 applic topical QID PRN (Reason: Skin Irritation) cetirizine 10 mg Tablet 10 mg PO QAM aspirin [Aspir-81] 81 mg Tablet,Delayed Release (Dr/Ec) 81 mg PO QAM ropinirole 1 mg tablet 1 mg PO BEDTIME PRN (Reason: restless legs) hydrocortisone [Proctozone-HC] 2.5 % cream with perineal applicator See Rx Instructions .ROUTE .COMPLEX Rx Instructions: Apply thin layer TO affected area two to four times daily. pantoprazole 40 mg tablet,delayed release (DR/EC) 40 mg PO QAM gabapentin 300 mg capsule 300 mg PO QAM Changed furosemide 20 mg tablet 20 mg PO DAILY PRN (Reason: weight gain 5 lbs) Qty: 10 0RF Discontinued valsartan 160 mg tablet 160 mg PO BID Qty: 180 3RF celecoxib 200 mg capsule 200 mg PO DAILY potassium chloride 20 mEq tablet extended release 20 meq PO QAM Discharge Orders: Discharge Order (Routine); Ordered 07/13/24 Ordered By: Bentley Oneal Referrals: Fidel Koch MD [Referring, Urology] - 2 weeks Referral Note: Urinary retention,frye in place Mitul Peters DO [Primary Care Provider, [facility]] - 07/20/24 11:30 am Discharge Diet: Cardiac Discharge Activity: Resume usual activity and Increase activity as tolerated Patient Instructions: COPD, Prednisone (By mouth), Tamsulosin (By mouth), Magnesium Oxide (By mouth), Sodium Bicarbonate (By mouth), Apixaban (By mouth), Coronary Artery Disease (DC), Acute Kidney Injury (DC), Chronic Hypertension (DC), Shortness of Breath (DC), Opioid Safety Activity Restrictions/Additional Instructions: Do not to take her home dose of celecoxib, valsartan. Restrict fluid intake to less than 1500 cc, salt intake to less than 2 g daily. Advised to check his weight daily at home. Is advised that weight today would be the dry weight and if body weight increases by around 5 pounds, patient is to take a dose of 20 mg Lasix daily till body weight comes down to weight today. If not able to come down to dry body weight in 1 week, then is to call cardiol ogy office for further recommendations. Patient was counseled in detail to take medications regularly as prescribed. Check your blood pressure daily at home and maintain a blood pressure diary. Follow-up with a primary care provider within next 2 weeks for further adjustment of antihypertensives. Goal blood pressure is between 100?140 systolic. He should have a repeat BMP checked in 1 week. Discharge Attestations Time Spent in Discharge Care*: greater than 30 min Specific Discharge Activities: educating patient, educating and/or supporting family/caregiver, discussing with pcp/other providers, discussing with top case assembler/social workers/dc planners, documenting/other paperwork and evaluating patient/reviewing data Status at Discharge: Cognitive status at discharge: cognitively intact , Behavioral status at discharge: cooperative , Functional status at discharge: independent ambulation , Overall status at discharge: patient is back to [facility] Quality [facility] Clinical Quality Measures [ No reported AMI, CVA or VTE this stay] Coding Level of Care Code 13155 Total time (in minutes) for Discharge: 65 Diagnoses Acute renal failure N17.9 Hypokalemia E87.6 Hypomagnesemia E83.42 Metabolic acidosis E87.20 Exertional shortness of breath R06.02 Transaminitis R74.01 Coronary artery disease involving [place] coronary artery of [place] heart without angina pectoris I25.10 Associated angina: without angina Coronary Disease-Associated Artery/Lesion type: [place] artery [place] vs. transplanted heart: [place] heart Hypertension, unspecified type I10 Hypertension type: unspecified Chronic obstructive pulmonary disease, unspecified COPD type J44.9 COPD type: unspecified COPD Chronic hyponatremia E87.1
--- NOTE | 2024-07-13 09:41 | PC.NURSE ---
Frye catheter removed at this tiime per Dr Oneal. Will monitor urine output and perform bladder scan. If patient continues to retain will discharge with frye catheter.
[2024-07-13 11:43] LABS: Glucose Point of Care 269 mg/dL (70-110)
[2024-07-13] MEDS: insulin lispro 100 unit/1 mL SUBCUT (11:59)
[2024-07-15 12:51] LABS: Vit D 1,25 (Oh)2, Total 53 pg/mL (18-72); Vit D2 1,25 (Oh)2 <8 pg/mL; Vit D3 1,25 (Oh)2 53 pg/mL
== END 2024-07-13 15:04 | disposition home or self-care (01) | DRG 683 ==
LOC: ER 15:24 → MEDSURG 15:48 → CSU 22:50
PROVIDERS: Admitting Provider Student in an Organized Health Care Education/Training Program; Emergency Provider Emergency Medicine; PCP Electrodiagnostic Medicine; Visit Provider Student in an Organized Health Care Education/Training Program
DX: N17.9 Acute kidney failure, unspecified (principal); E87.1 Hypo-osmolality and hyponatremia; E87.20 Acidosis, unspecified; J44.1 Chronic obstructive pulmonary disease with (acute) exacerbation; I25.10 Atherosclerotic heart disease of native coronary artery without angina pectoris; Z79.899 Other long term (current) drug therapy; Z88.8 Allergy status to other drugs, medicaments and biological substances; I10 Essential (primary) hypertension; K21.9 Gastro-esophageal reflux disease without esophagitis; E11.9 Type 2 diabetes mellitus without complications; E87.6 Hypokalemia; Z95.5 Presence of coronary angioplasty implant and graft; E83.42 Hypomagnesemia; E83.51 Hypocalcemia
CPT/HCPCS: 36415; 36416; 36600; 51702; 71045; 71250; 74176; 80048; 80051; 80053; 80061; 81001; 82306; 82310; 82330; 82607; 82652; 82746; 82805; 82962; 82977; 83036; 83540; 83550; 83615; 83735; 83880; 83970; 84100; 84132; 84443; 84484; 85025; 85378; 85610; 85730; 86705; 86706; 86709; 86803; 87040; 87340; 93005; 93306; 93970; 94640; 94664; 96360; 96372; 96376; 99285; J0612; J1644; J1815; J2270; J2470; J2919; J3475; J7030; J7070; J7512; J7611; J7626; J9999

== ENCOUNTER 2024-07-26 16:32 | Observation (INO) | payer MEDICARE, SELFPAY ==
[2024-07-26] VITALS (10 sets, daily range): BP systolic 123–175; BP diastolic 60–87; PULSE 83–96; RESP 16–18; TEMP 36.8–37.9; O2SAT 94–99; BMI 28.5
--- NOTE | 2024-07-26 16:57 | ECG_ITS ---
[facility] Date: 2024-07[facility]26 Pat Name: Nika Spears Department: Room: Gender: Female Call Center Operations Manager: : 1950 Requested By: Jean-Pierre Mello Order Number: [id number] Myah MD: Alistair Martell M.D. Measurements Intervals [place] Rate: 83 P: 43 TX: 199 QRS: -14 QRSD: 91 T: 30 QT: 365 QTc: 429 Interpretive Statements SINUS RHYTHM POSSIBLE LEFT ATRIAL ENLARGEMENT [-0.1mV P-WAVE IN V1/V2] Non diagnostic T wave changes SEPTAL MYOCARDIAL INFARCTION , OF INDETERMINATE AGE [40+ ms Q WAVE IN V1/V2] Compared to ECG 07/10/2024 19:53:43 Possible ischemia no longer present Myocardial infarct finding still present Electronically Signed On 07-27-2024 21:49:36 CDT by Alistair Martell M.D. [email or web address]
--- NOTE | 2024-07-26 16:57 | W.ED.RECABL ---
Documented by User: Jean-Pierre Moore DO 07/27/24 06:29 HPI - Recheck/Abnormal Lab/Rx General: Chief Complaint: Recheck/Abnormal Lab/Rx Stated Complaint: dr huff, abnormal labs Time Seen by Provider: 07/26/24 16:38 History of Present Illness: 73-year-old female presents emergency room directed here by her primary care doctor after having abnormal labs at the office. She was seen earlier this year for hyponatremia. Last week she was admitted with acute kidney injury as well as mild hypokalemia. She had some hypomagnesemia as well. She was admitted and this was improved after a 3-day hospital stay. There is also some concern about fluid overload which was corrected while she was in the hospital as well. She reports that she had repeat lab work done Dr. Peters's office and was and was directed to the emergency room today. Patient is very noncommittal with her history and her review of systems. Related Data Home Medications ?Medication ?Instructions ?Recorded ?Confirmed amitriptyline 10 mg tablet 10 mg PO BEDTIME 09/12/19 07/10/24 albuterol sulfate 90 mcg/actuation 1 inh inhalation Q6H PRN Shortness 03/06/24 07/10/24 aerosol inhaler Of Breath atorvastatin 20 mg tablet 10 mg PO QPM 03/06/24 07/10/24 fluticasone furoate 100 1 inh inhalation DAILY 03/06/24 07/10/24 mcg-vilanterol 25 mcg/dose inhalation powder (Breo Ellipta) fluticasone propionate 50 1 spray intranasal DAILY 03/06/24 07/10/24 mcg/actuation nasal spray,suspension metoprolol tartrate 100 mg tablet 50 mg PO BID 03/06/24 07/10/24 tramadol 50 mg tablet 100 mg PO BEDTIME 03/06/24 07/10/24 aspirin 81 mg tablet,delayed 81 mg PO QAM 07/10/24 07/10/24 release cetirizine 10 mg tablet 10 mg PO QAM 07/10/24 07/10/24 gabapentin 300 mg capsule 300 mg PO QAM 07/10/24 07/10/24 hydrocortisone 2.5 % topical cream See Rx Instructions .Route .COMPLEX 07/10/24 07/10/24 with perineal applicator (Proctozone-HC) lidocaine 5 % topical ointment 1 applic topical QID PRN Skin 07/10/24 07/10/24 Irritation pantoprazole 40 mg tablet,delayed 40 mg PO QAM 07/10/24 07/10/24 release ropinirole 1 mg tablet 1 mg PO BEDTIME PRN restless legs 07/10/24 07/10/24 Previous Rx's ?Medication ?Instructions ?Recorded TLSO Brace #1 ea 03/15/24 apixaban 5 mg (74 tabs) tablets in See Rx Instructions PO .COMPLEX 07/12/24 a dose pack ([facility] DVT-PE Treat #74 ea 30D Start) furosemide 20 mg tablet 20 mg PO DAILY PRN weight gain 5 07/12/24 lbs #10 tabs magnesium oxide 400 mg (241.3 mg 400 mg PO BID 30 days #60 tabs 07/12/24 magnesium) tablet sodium bicarbonate 650 mg tablet 650 mg PO BID #60 tabs 07/12/24 tamsulosin 0.4 mg capsule 0.4 mg PO DAILY 30 days #30 caps 07/12/24 calcium 500 mg (as citrate)-vit D3 1 tab PO BID@08,16 #60 tabs 07/13/24 12.5 mcg (500 unit) chewable tablet Allergies Allergy/AdvReac Type Severity Reaction Status Date / Time amlodipine Allergy Severe ADR/ALGY-Flushing/Facial Verified 07/10/24 14:22 swelling Review of Systems Const: Denies: fever(s) or chills Card: Denies: chest pain Resp: Reports: dyspnea GI: Denies: abdominal pain : Denies: dysuria, urinary frequency or urinary urgency Musc: Denies: neck pain or back pain Skin/Breast: Denies: rash PFSH ED PFSH: Medical History Chronic hyponatremia Coronary artery disease Gingivitis Oral mucositis (ulcerative), unspecified Chronic cystitis Pelvic pain Osteopenia after menopause Alopecia of scalp Asthma Meniere disease Diabetes Joint pain Positive CYNTHIA (antinuclear antibody) COPD (chronic obstructive pulmonary disease) Hypertension GERD (gastroesophageal reflux disease) Cystitis Surgical History Hx of total knee arthroplasty History of total left knee replacement Status post hysterectomy Hx of heart artery stent Family History Grandmother CAD (coronary artery disease) Other Cancer Hypertension Denies family history of Rheumatoid arthritis Diabetes Lupus Hyperlipidemia Chronic kidney disease (CKD) Lung disease Stroke Social History (Updated 07/26/24 @ 22:02 by Tl Madsen MD) Smoking and tobacco/nicotine status: former use of tobacco/nicotine Quit status (tobacco/nicotine): has quit using Year quit tobacco: 2008 Former quit date comment: 16 years ago Alcohol intake: never Substance/Drug Use: never Additional social history: Patient wants full code but not prolonged efforts or life support as discussed on 07/26/2024 with Tl Madsen MD and [id number] Ericka patient denies alcohol or drug use she quit tobacco 16 years ago Adopted: No Caregiver/support person: No Lives independently: No Household members: spouse Marital status: Current occupational status: retired Physical Exam Const: GENERAL APPEARANCE: cooperative ORIENTATION/CONSCIOUSNESS: Yes awake, Yes oriented to person, Yes oriented to place and Yes oriented to time HENMT: COMMON NORMALS: normocephalic, atraumatic and hearing grossly normal bilaterally HEAD & SCALP: normocephalic and atraumatic Resp: COMMON NORMALS: normal respiratory effort, No retractions, No use of accessory muscles and clear to auscultation bilaterally AUSCULTATION: clear to auscultation bilaterally Cardio: COMMON NORMALS: regular rate, regular rhythm and No murmurs present (Cardio) RATE: regular rate RHYTHM: regular rhythm GI: COMMON NORMALS: Soft to palpation and No hepatosplenomegaly present AUSCULTATION: Yes normoactive bowel sounds PALPATION: Yes Soft to palpation, No Tenderness to palpation present (GI), No Guarding due to palpation present (GI) and Yes No hepatosplenomegaly present Extremity: COMMON NORMALS: normal to inspection, capillary refill normal, no clubbing, cyanosis or edema, no calf tenderness and no pedal edema Neuro: SENSORIUM/ORIENTATION: Yes oriented to person, Yes oriented to place and Yes oriented to time Skin: COMMON NORMALS: no rashes or lesions noted GENERAL SKIN EXAM: no rashes or lesions noted Course Vital Signs: Vital signs: Vital Signs Temperature 100.2 F H 07/26/24 23:39 Pulse Rate 93 07/27/24 01:43 Respiratory Rate 16 07/26/24 23:39 Blood Pressure 150/72 07/26/24 23:39 Pulse Oximetry 97 07/26/24 23:39 Oxygen Delivery Me thod Room Air 07/26/24 23:39 MDM - Recheck/Abnormal Lab/Rx Medical Decision Making Sodium at about her baseline where she typically seems from reviewing old records. Potassium is 3.1. Discussed with her primary care provider he was concerned that checked her magnesium at home magnesium did come back as 0.9 discussed with the oncoming physician for magnesium infusion. Creatinine is slightly elevated but improved from where she had been at previous hospitalization. Dr. Garcia is planning on infusing magnesium possible discharge home she is already been given oral potassium supplement and 500 normal saline. Patient remained hemodynamically stable throughout ED course. Laboratory evaluation shows hypokalemia, hypophosphatemia, hyponatremia. Patient was instructed to come to the emergency department for possible admission. Initially, it was thought her electrolyte imbalances could be repleted in the emergency department and safely discharged home, however upon further investigation it appears she would benefit from a short hospitalization and stabilization and adjustment of home meds to trying keep her levels maintained in the outpatient setting. Patient is agreeable to the plan and will be admitted in stable condition. Lab Data 07/26/24 16:57 07/26/24 16:57 Radiology Impressions Chest X-Ray 07/26/24 21:07 IMPRESSION: As above. Laboratory Results WBC 7.84 10^3/uL (3.29-11.43) 07/26/24 16:57 RBC 3.12 10^6/uL (3.85-5.65) L 07/26/24 16:57 Hgb 8.70 g/dL (11.27-16.99) L 07/26/24 16:57 Hct 28.4 % (36-47) L 07/26/24 16:57 MCV 91.0 fl (85-98) 07/26/24 16:57 MCH 27.9 pg (27-33) 07/26/24 16:57 MCHC 30.6 g/dL (30-55) 07/26/24 16:57 RDW 15.5 % (12.1-15.1) H 07/26/24 16:57 Plt Count 330 10^3/cmm (157-399) 07/26/24 16:57 MPV 8.9 fL (7.4-10.4) 07/26/24 16:57 Neut % (Auto) 79.2 % 07/26/24 16:57 Lymph % (Auto) 8.3 % 07/26/24 16:57 [place] % (Auto) 7.1 % 07/26/24 16:57 Eos % (Auto) 2.8 % 07/26/24 16:57 Baso % (Auto) 0.6 % 07/26/24 16:57 Neut # (Auto) 6.20 10^3/uL (1.8-7.7) 07/26/24 16:57 Lymph # (Auto) 0.7 10^3/uL (0.8-4.8) L 07/26/24 16:57 [place] # (Auto) 0.6 10^3/uL (0.2-0.9) 07/26/24 16:57 Eos # (Auto) 0.2 10^3/uL (0.0-0.8) 07/26/24 16:57 Baso # (Auto) 0.1 10^3/uL (0.0-0.1) 07/26/24 16:57 Nucleated RBC % (auto) 0 % 07/26/24 16:57 Nucleated RBCs # 0.0 /100WBC 07/26/24 16:57 Sodium 128 mmol/L (136-145) L 07/26/24 16:57 Potassium 3.1 mmol/L (3.5-5.1) L 07/26/24 16:57 Chloride 93 mmol/L (98-107) L 07/26/24 16:57 Carbon Dioxide 19 mmol/L (22-29) L 07/26/24 16:57 Anion Gap 19.1 (5-19) H 07/26/24 16:57 BUN 15 mg/dL (8-23) 07/26/24 16:57 Creatinine 1.2 mg/dL (0.5-0.9) H 07/26/24 16:57 GFR Calculation Not Reportable 07/26/24 16:57 Glucose 122 mg/dL (65-115) H 07/26/24 16:57 Calculated Osmolality 268 mOsm/kg (285-295) L 07/26/24 16:57 Calcium 7.9 mg/dL (8.5-10.5) L 07/26/24 16:57 Phosphorus 3.5 mg/dL (2.5-4.5) 07/26/24 16:52 Magnesium 0.9 mg/dL (1.7-2.3) L 07/26/24 16:57 Total Bilirubin 0.5 mg/dL (0.15-1.2) 07/26/24 16:57 AST 38 U/L (0-32) H 07/26/24 16:57 ALT 36 U/L (0-33) H 07/26/24 16:57 Alkaline Phosphatase 138 U/L (35-105) H 07/26/24 16:57 Total Protein 6.6 g/dL (6.6-8.7) 07/26/24 16:57 Albumin 3.4 g/dL (3.5-5.2) L 07/26/24 16:57 Globulin 3.2 g/dL (1.3-4.6) 07/26/24 16:57 Urine Color Yellow (Yellow) 07/26/24 17:15 Urine Appearance Cloudy (CLEAR) A 07/26/24 17:15 Urine pH 6.5 (5-7) 07/26/24 17:15 Ur Specific [place] 1.016 (1.005-1.030) 07/26/24 17:15 Urine Protein 1+ (Negative) A 07/26/24 17:15 Urine Glucose (UA) 1+ (Normal) H 07/26/24 17:15 Urine Ketones Negative (Negative) 07/26/24 17:15 Urine Blood Negative (Negative) 07/26/24 17:15 Urine Nitrate Negative (Negative) 07/26/24 17:15 Urine Bilirubin Negative (Negative) 07/26/24 17:15 Urine Urobilinogen 1.0 mg/dL (Negative) 07/26/24 17:15 Ur Leukocyte Esterase 2+ (Negative) A 07/26/24 17:15 Urine RBC 0-2 /hpf (0-2) 07/26/24 17:15 Urine WBC 51-100 /hpf (0-5) H 07/26/24 17:15 Ur Squamous Epith Cells 11-20 /hpf (0-5) H 07/26/24 17:15 Amorphous Sediment Not Reportable 07/26/24 17:15 Urine Bacteria Exceeds /hpf (NONE) 07/26/24 17:15 Hyaline Casts 1.65 /lpf 07/26/24 17:15 Discharge Plan Discharge Patient Disposition: Admitted As Inpatient Admit Provider: Tl Madsen Clinical Impression: Hypokalemia, Hyponatremia, Hypomagnesemia, Hypophosphatemia Condition: Stable Discharge Diet: Low Salt Discharge Activity: Increase activity as tolerated Coding Level of Care Code ED Inter Com Servicer for Chg Fwd Documented by User: Lee Garcia MD 07/26/24 21:11 HPI - Recheck/Abnormal Lab/Rx General: Chief Complaint: Recheck/Abnormal Lab/Rx Stated Complaint: dr huff, abnormal labs Time Seen by Provider: 07/26/24 16:38 Related Data Home Medications ?Medication ?Instructions ?Recorded ?Confirmed amitriptyline 10 mg tablet 10 mg PO BEDTIME 09/12/19 07/10/24 albuterol sulfate 90 mcg/actuation 1 inh inhalation Q6H PRN Shortness 03/06/24 07/10/24 aerosol inhaler Of Breath atorvastatin 20 mg tablet 10 mg PO QPM 03/06/24 07/10/24 fluticasone furoate 100 1 inh inhalation DAILY 03/06/24 07/10/24 mcg-vilanterol 25 mcg/dose inhalation powder (Breo Ellipta) fluticasone propionate 50 1 spray intranasal DAILY 03/06/24 07/10/24 mcg/actuation nasal spray,suspension metoprolol tartrate 100 mg tablet 50 mg PO BID 03/06/24 07/10/24 tramadol 50 mg tablet 100 mg PO BEDTIME 03/06/24 07/10/24 aspirin 81 mg tablet,delayed 81 mg PO QAM 07/10/24 07/10/24 release cetirizine 10 mg tablet 10 mg PO QAM 07/10/24 07/10/24 gabapentin 300 mg capsule 300 mg PO QAM 07/10/24 07/10/24 hydrocortisone 2.5 % topical cream See Rx Instructions .Route .COMPLEX 07/10/24 07/10/24 with perineal applicator (Proctozone-HC) lidocaine 5 % topical ointment 1 applic topical QID PRN Skin 07/10/24 07/10/24 Irritation pantoprazole 40 mg tablet,delayed 40 mg PO QAM 07/10/24 07/10/24 release ropinirole 1 mg tablet 1 mg PO BEDTIME PRN restless legs 07/10/24 07/10/24 Previous Rx's ?Medication ?Instructions ?Recorded TLSO Brace #1 ea 03/15/24 apixaban 5 mg (74 tabs) tablets in See Rx Instructions PO .COMPLEX 07/12/24 a dose pack ([facility] DVT-PE Treat #74 ea 30D Start) furosemide 20 mg tablet 20 mg PO DAILY PRN weight gain 5 07/12/24 lbs #10 tabs magnesium oxide 400 mg (241.3 mg 400 mg PO BID 30 days #60 tabs 07/12/24 magnesium) tablet sodium bicarbonate 650 mg tablet 650 mg PO BID #60 tabs 07/12/24 tamsulosin 0.4 mg capsule 0.4 mg PO DAILY 30 days #30 caps 07/12/24 calcium 500 mg (as citrate)-vit D3 1 tab PO BID@08,16 #60 tabs 07/13/24 12.5 mcg (500 unit) chewable tablet Allergies Allergy/AdvReac Type Severity Reaction Status Date / Time amlodipine Allergy Severe ADR/ALGY-Flushing/Facial Verified 07/10/24 14:22 swelling PFSH ED PFSH: Medical History Chronic hyponatremia Coronary artery disease Gingivitis Oral mucositis (ulcerative), unspecified Chronic cystitis Pelvic pain Osteopenia after menopause Alopecia of scalp Asthma Meniere disease Diabetes Joint pain Positive CYNTHIA (antinuclear antibody) COPD (chronic obstructive pulmonary disease) Hypertension GERD (gastroesophageal reflux disease) Cystitis Surgical History Hx of total knee arthroplasty History of total left knee replacement Status post hysterectomy Hx of heart artery stent Family History Grandmother CAD (coronary artery disease) Other Cancer Hypertension Denies family history of Rheumatoid arthritis Diabetes Lupus Hyperlipidemia Chronic kidney disease (CKD) Lung disease Stroke Social History (Updated 07/26/24 @ 22:02 by Tl Madsen MD) Smoking and tobacco/nicotine status: former use of tobacco/nicotine Quit status (tobacco/nicotine): has quit using Year quit tobacco: 2008 Former quit date comment: 16 years ago Alcohol intake: never Substance/Drug Use: never Additional social history: Patient wants full code but not prolonged efforts or life support as discussed on 07/26/2024 with Tl Madsen MD and [id number] Ericka patient denies alcohol or drug use she quit tobacco 16 years ago Adopted: No Caregiver/support person: No Lives independently: No Household members: spouse Marital status: Current occupational status: retired Course Vital Signs: Vital signs: Vital Signs Temperature 100.2 F H 07/26/24 23:39 Pulse Rate 93 07/27/24 01:43 Respiratory Rate 16 07/26/24 23:39 Blood Pressure 150/72 07/26/24 23:39 Pulse Oximetry 97 07/26/24 23:39 Oxygen Delivery Me thod Room Air 07/26/24 23:39 MDM - Recheck/Abnormal Lab/Rx Medical Decision Making Patient remained hemodynamically stable throughout ED course. Laboratory evaluation shows hypokalemia, hypophosphatemia, hyponatremia. Patient was instructed to come to the emergency department for possible admission. Initially, it was thought her electrolyte imbalances could be repleted in the emergency department and safely discharged home, however upon further investigation it appears she would benefit from a short hospitalization and stabilization and adjustment of home meds to trying keep her levels maintained in the outpatient setting. Patient is agreeable to the plan and will be admitted in stable condition. Lab Data 07/26/24 16:57 07/26/24 16:57 Radiology Impressions Chest X-Ray 07/26/24 21:07 IMPRESSION: As above. Laboratory Results WBC 7.84 10^3/uL (3.29-11.43) 07/26/24 16:57 RBC 3.12 10^6/uL (3.85-5.65) L 07/26/24 16:57 Hgb 8.70 g/dL (11.27-16.99) L 07/26/24 16:57 Hct 28.4 % (36-47) L 07/26/24 16:57 MCV 91.0 fl (85-98) 07/26/24 16:57 MCH 27.9 pg (27-33) 07/26/24 16:57 MCHC 30.6 g/dL (30-55) 07/26/24 16:57 RDW 15.5 % (12.1-15.1) H 07/26/24 16:57 Plt Count 330 10^3/cmm (157-399) 07/26/24 16:57 MPV 8.9 fL (7.4-10.4) 07/26/24 16:57 Neut % (Auto) 79.2 % 07/26/24 16:57 Lymph % (Auto) 8.3 % 07/26/24 16:57 [place] % (Auto) 7.1 % 07/26/24 16:57 Eos % (Auto) 2.8 % 07/26/24 16:57 Baso % (Auto) 0.6 % 07/26/24 16:57 Neut # (Auto) 6.20 10^3/uL (1.8-7.7) 07/26/24 16:57 Lymph # (Auto) 0.7 10^3/uL (0.8-4.8) L 07/26/24 16:57 [place] # (Auto) 0.6 10^3/uL (0.2-0.9) 07/26/24 16:57 Eos # (Auto) 0.2 10^3/uL (0.0-0.8) 07/26/24 16:57 Baso # (Auto) 0.1 10^3/uL (0.0-0.1) 07/26/24 16:57 Nucleated RBC % (auto) 0 % 07/26/24 16:57 Nucleated RBCs # 0.0 /100WBC 07/26/24 16:57 Sodium 128 mmol/L (136-145) L 07/26/24 16:57 Potassium 3.1 mmol/L (3.5-5.1) L 07/26/24 16:57 Chloride 93 mmol/L (98-107) L 07/26/24 16:57 Carbon Dioxide 19 mmol/L (22-29) L 07/26/24 16:57 Anion Gap 19.1 (5-19) H 07/26/24 16:57 BUN 15 mg/dL (8-23) 07/26/24 16:57 Creatinine 1.2 mg/dL (0.5-0.9) H 07/26/24 16:57 GFR Calculation Not Reportable 07/26/24 16:57 Glucose 122 mg/dL (65-115) H 07/26/24 16:57 Calculated Osmolality 268 mOsm/kg (285-295) L 07/26/24 16:57 Calcium 7.9 mg/dL (8.5-10.5) L 07/26/24 16:57 Phosphorus 3.5 mg/dL (2.5-4.5) 07/26/24 16:52 Magnesium 0.9 mg/dL (1.7-2.3) L 07/26/24 16:57 Total Bilirubin 0.5 mg/dL (0.15-1.2) 07/26/24 16:57 AST 38 U/L (0-32) H 07/26/24 16:57 ALT 36 U/L (0-33) H 07/26/24 16:57 Alkaline Phosphatase 138 U/L (35-105) H 07/26/24 16:57 Total Protein 6.6 g/dL (6.6-8.7) 07/26/24 16:57 Albumin 3.4 g/dL (3.5-5.2) L 07/26/24 16:57 Globulin 3.2 g/dL (1.3-4.6) 07/26/24 16:57 Urine Color Yellow (Yellow) 07/26/24 17:15 Urine Appearance Cloudy (CLEAR) A 07/26/24 17:15 Urine pH 6.5 (5-7) 07/26/24 17:15 Ur Specific [place] 1.016 (1.005-1.030) 07/26/24 17:15 Urine Protein 1+ (Negative) A 07/26/24 17:15 Urine Glucose (UA) 1+ (Normal) H 07/26/24 17:15 Urine Ketones Negative (Negative) 07/26/24 17:15 Urine Blood Negative (Negative) 07/26/24 17:15 Urine Nitrate Negative (Negative) 07/26/24 17:15 Urine Bilirubin Negative (Negative) 07/26/24 17:15 Urine Urobilinogen 1.0 mg/dL (Negative) 07/26/24 17:15 Ur Leukocyte Esterase 2+ (Negative) A 07/26/24 17:15 Urine RBC 0-2 /hpf (0-2) 07/26/24 17:15 Urine WBC 51-100 /hpf (0-5) H 07/26/24 17:15 Ur Squamous Epith Cells 11-20 /hpf (0-5) H 07/26/24 17:15 Amorphous Sediment Not Reportable 07/26/24 17:15 Urine Bacteria Exceeds /hpf (NONE) 07/26/24 17:15 Hyaline Casts 1.65 /lpf 07/26/24 17:15 XR interpretation done by ED provider, pending radiology final review Discharge Plan Discharge Patient Disposition: Admitted As Inpatient Admit Provider: Tl Madsen Clinical Impression: Hypokalemia, Hyponatremia, Hypomagnesemia, Hypophosphatemia Condition: Stable Discharge Diet: Low Salt Discharge Activity: Increase activity as tolerated Coding Level of Care Code ED Inter Com Servicer for Johnathan Godoy
[2024-07-26 17:08] LABS: Basophils # 0.1 10^3/uL (0.0-0.1); Basophils % 0.6 %; Eosinophils # 0.2 10^3/uL (0.0-0.8); Eosinophils % 2.8 %; Hematocrit 28.4 % (36-47); Lymphocytes # 0.7 10^3/uL (0.8-4.8); Lymphocytes % 8.3 %; Mean Corpuscular HGB Conc 30.6 g/dL (30-55); Mean Corpuscular Hemoglobin 27.9 pg (27-33); Mean Platelet Volume 8.9 fL (7.4-10.4); Monocytes # 0.6 10^3/uL (0.2-0.9); Monocytes % 7.1 %; Neutrophils % 79.2 %; Nucleated Red Blood Cells % 0 %; Platelet Count 330 10^3/cmm (157-399); Red Blood Count 3.12 10^6/uL (3.85-5.65); Red Cell Distribution Width 15.5 % (12.1-15.1); White Blood Count 7.84 10^3/uL (3.29-11.43)
[2024-07-26 17:26] LABS: Bilirubin Urine Negative (Negative); Blood Urine Negative (Negative); Glucose Urine UA 1+ (Normal); Ketones Urine Negative (Negative); Leukocyte Esterase Urine 2+ (Negative); Nitrate Urine Negative (Negative); Protein Urine 1+ (Negative); Specific Gravity, Urine 1.016 (1.005-1.030); Urine Appearance Cloudy (CLEAR); Urine Color Yellow (Yellow); pH Urine 6.5 (5-7)
[2024-07-26 17:27] LABS: Alanine Aminotransferase 36 U/L (0-33); Albumin Level 3.4 g/dL (3.5-5.2); Alkaline Phosphatase 138 U/L (35-105); Anion Gap 19.1 (5-19); Aspartate Amino Transferase 38 U/L (0-32); Blood Urea Nitrogen 15 mg/dL (8-23); Calcium 7.9 mg/dL (8.5-10.5); Carbon Dioxide 19 mmol/L (22-29); Chloride 93 mmol/L (98-107); Globulin 3.2 g/dL (1.3-4.6); Glucose 122 mg/dL (65-115); Osmolality Calculated 268 mOsm/kg (285-295); Potassium 3.1 mmol/L (3.5-5.1); Sodium 128 mmol/L (136-145); Total Bilirubin 0.5 mg/dL (0.15-1.2); Total Protein 6.6 g/dL (6.6-8.7)
[2024-07-26 17:33] LABS: Add Urine Microscopic? YES; Bacteria Urine EXCEEDS /hpf; Hyaline Casts Urine 1.65 /lpf; RBC Urine 0-2 /hpf (0-2); WBC Urine 51-100 /hpf (0-5)
[2024-07-26 17:46] LABS: Add Urine Culture? Yes
[2024-07-26] MEDS: sodium chloride 0.9% 1,000 ML 999 ML IV (17:53)
[2024-07-26] MEDS: potassium chloride oral liq 20 mEq/15 mL UDC 60 MEQ PO (17:53)
[2024-07-26] MEDS: cefTRIAXone 1,000 mg SDV 1000 MG IVP (17:53)
[2024-07-26 18:36] LABS: Magnesium 0.9 mg/dL (1.7-2.3)
[2024-07-26] MEDS: magnesium sulfate premix 2 GM/50 ML PIGGYBACK IV (19:00)
[2024-07-26] MEDS: magnesium oxide 400 mg tablet PO (19:00)
--- NOTE | 2024-07-26 21:07 | XRR_ITS ---
PROCEDURE INFORMATION: Exam: XR Chest Exam date and time: 07/26/2024 9:09 PM Age: 73 years old Clinical indication: Dyspnea; Prior surgery; Surgery date: 6+ months; Surgery type: Coronary stent; Additional info: Dyspnea on exertion, ? fluid overload TECHNIQUE: Imaging protocol: Radiologic exam of the chest. Views: 1 view. COMPARISON: [place] [id number] 07/10/2024 10:32 PM FINDINGS: Lungs: Bibasilar atelectasis. Pleural spaces: Unremarkable. No pleural effusion. No pneumothorax. Heart/Mediastinum: Mild cardiomegaly. Bones/joints: Unremarkable. Other findings: Mild congestive changes. XR/XR chest 1V portable [id number] IMPRESSION: As above.
[2024-07-26 21:38] LABS: Phosphorus 3.5 mg/dL (2.5-4.5)
--- NOTE | 2024-07-26 21:44 | PM.HP ---
Providers/Chief Complaint Admitting Physician: Tl Madsen MD Primary Care Provider: Mitul Peters DO Chief Complaint: dr huff, abnormal labs History of Present Illness Nika Spears is a 73 year old female sent from the doctor's office due to abnormal labs with hyponatremia, hypokalemia, and hypomagnesemia referred for admission. She was feeling weak lousy with mild headache. She denies dysuria hematuria or frequency but is found to have UTI and electrolyte abnormalities. [id number] Ericka also at bedside. Patient has 1 son Reymundo who is Ericka's . Patient reports that she has occasional swelling but it is not as bad as her last admission. She was admitted on 07/10/2024 with acute renal failure creatinine to 3.2 metabolic acidosis hyponatremia hypokalemia and thought to be due to diuretics valsartan NSAIDs and dehydration kidney function has significantly improved. Patient could not have CTA done due to renal failure but was empirically treated with Eliquis for possible PE due to worsening shortness of breath during the hospitalization despite effective treatment for COPD and CHF and noncontrast CT showing no pneumonia. Patient had urine retention treated with temporary Ugalde and discharged on Flomax. Renal function is improved patient is on bicarbonate tablets and magnesium. Furosemide and potassium were switched to as needed and she states she has been taking that about twice a week prednisone was given for 5 days at 40 mg a day Review of Systems Narrative: General positive for feeling poorly with headache weakness but not pain Cardiovascular no chest pain Respiratory not short of breath has had intermittent leg swelling taking as needed furosemide denies dysuria hematuria or frequency Medications/Allergies Home Medications ?Medication ?Instructions ?Recorded ?Confirmed ?Last Taken ?Type amitriptyline 10 mg tablet 10 mg PO BEDTIME 09/12/19 07/10/24 07/09/24 History albuterol sulfate 90 mcg/actuation 1 inh inhalation Q6H PRN Shortness 03/06/24 07/10/24 07/10/24 History aerosol inhaler Of Breath atorvastatin 20 mg tablet 10 mg PO QPM 03/06/24 07/10/24 07/09/24 History fluticasone furoate 100 1 inh inhalation DAILY 03/06/24 07/10/24 07/10/24 History mcg-vilanterol 25 mcg/dose inhalation powder (Breo Ellipta) fluticasone propionate 50 1 spray intranasal DAILY 03/06/24 07/10/24 07/10/24 History mcg/actuation nasal spray,suspension metoprolol tartrate 100 mg tablet 50 mg PO BID 03/06/24 07/10/24 07/10/24 History tramadol 50 mg tablet 100 mg PO BEDTIME 03/06/24 07/10/24 07/09/24 History TLSO Brace #1 ea 03/15/24 07/10/24 Unknown Rx aspirin 81 mg tablet,delayed 81 mg PO QAM 07/10/24 07/10/24 07/10/24 History release cetirizine 10 mg tablet 10 mg PO QAM 07/10/24 07/10/24 07/10/24 History gabapentin 300 mg capsule 300 mg PO QAM 07/10/24 07/10/24 07/10/24 History hydrocortisone 2.5 % topical cream See Rx Instructions .Route .COMPLEX 07/10/24 07/10/24 Unknown History with perineal applicator (Proctozone-HC) lidocaine 5 % topical ointment 1 applic topical QID PRN Skin 07/10/24 07/10/24 Unknown History Irritation pantoprazole 40 mg tablet,delayed 40 mg PO QAM 07/10/24 07/10/24 07/10/24 History release ropinirole 1 mg tablet 1 mg PO BEDTIME PRN restless legs 07/10/24 07/10/24 Unknown History apixaban 5 mg (74 tabs) tablets in See Rx Instructions PO .COMPLEX 07/12/24 Unknown Rx a dose pack ([employer] DVT-PE Treat #74 ea 30D Start) furosemide 20 mg tablet 20 mg PO DAILY PRN weight gain 5 07/12/24 07/10/24 07/10/24 Rx lbs #10 tabs magnesium oxide 400 mg (241.3 mg 400 mg PO BID 30 days #60 tabs 07/12/24 Unknown Rx magnesium) tablet sodium bicarbonate 650 mg tablet 650 mg PO BID #60 tabs 07/12/24 Unknown Rx tamsulosin 0.4 mg capsule 0.4 mg PO DAILY 30 days #30 caps 07/12/24 Unknown Rx calcium 500 mg (as citrate)-vit D3 1 tab PO BID@08,16 #60 tabs 07/13/24 Unknown Rx 12.5 mcg (500 unit) chewable tablet Allergies Allergy/AdvReac Type Severity Reaction Status Date / Time amlodipine Allergy Severe ADR/ALGY-Flushing/Facial Verified 07/10/24 14:22 swelling PFSH Acute PFSH: Medical History Chronic hyponatremia Coronary artery disease Gingivitis Oral mucositis (ulcerative), unspecified Chronic cystitis Pelvic pain Osteopenia after menopause Alopecia of scalp Asthma Meniere disease Diabetes Joint pain Positive CYNTHIA (antinuclear antibody) COPD (chronic obstructive pulmonary disease) Hypertension GERD (gastroesophageal reflux disease) Cystitis Surgical History Hx of total knee arthroplasty History of total left knee replacement Status post hysterectomy Hx of heart artery stent Family History Grandmother CAD (coronary artery disease) Other Cancer Hypertension Denies family history of Rheumatoid arthritis Diabetes Lupus Hyperlipidemia Chronic kidney disease (CKD) Lung disease Stroke Social History (Updated 07/26/24 @ 22:02 by Tl Madsen MD) Smoking and tobacco/nicotine status: former use of tobacco/nicotine Quit status (tobacco/nicotine): has quit using Year quit tobacco: 2008 Former quit date comment: 16 years ago Alcohol intake: never Substance/Drug Use: never Additional social history: Patient wants full code but not prolonged efforts or life support as discussed on 07/26/2024 with Tl Madsen MD and [id number] Ericka patient denies alcohol or drug use she quit tobacco 16 years ago Adopted: No Caregiver/support person: No Lives independently: No Household members: spouse Marital status: Current occupational status: retired Vitals/I&O/Wt Last Vital Signs Temp 98.3 F 07/26/24 16:36 Pulse 90 07/26/24 20:04 Resp 16 07/26/24 20:04 BP 145/78 07/26/24 20:04 Pulse Ox 97 07/26/24 20:04 O2 Del Method Room Air 07/26/24 16:36 07/26/24 07/26/24 07/26/24 06:59 14:59 22:59 Intake Total 1050.00 / 1050.00 Balance 1050.00 / 1050.00 Weight last 48 hrs Weight 73.028 kg Physical Exam Narrative: General Well-developed well-nourished female in no acute cardiopulmonary stress CV regular rate and rhythm Lungs trace left basilar crackles this improved in essentially resolved with deep breaths and coughing Abdomen positive bowel sounds soft obese nontender Calves 1+ pretibial edema Data 07/26/24 16:57 07/26/24 16:57 A&P Assessment and plan (1) UTI (urinary tract infection): Start treatment with Rocephin (2) Hypomagnesemia: Replace and recheck in the morning (3) Chronic hyponatremia: Saline compression hose and start spironolactone (4) Hypokalemia: Start spironolactone (5) COPD (chronic obstructive pulmonary disease): Stable PDMP PDMP Reviewed: Not Reviewed Attestations Medical Necessity Statement*: Patient admitted to hospital for electrolyte replacement and initiation of treatment for UTI. Anticipate her hospitalization to be 1-2 midnights Coding Level of Care Code Acute Code for [facility] Diagnoses UTI (urinary tract infection) N39.0 Hypomagnesemia E83.42 Chronic hyponatremia E87.1 Hypokalemia E87.6 Chronic obstructive pulmonary disease, unspecified COPD type J44.9 COPD type: unspecified COPD Time Spent (min) 55
[2024-07-26] MEDS: sodium chlor 0.9% + KCl 40 mEq 40 MEQ/1,000 ML BAG 125 MEQ IV (21:58)
[2024-07-26] MEDS: efferdent effervescent 1 EACH DENTAL (23:18)
[2024-07-26] MEDS: spironolactone 25 mg Tablet PO (23:18)
[2024-07-27] MEDS: acetaminophen 325 mg Tablet 650 MG PO (00:03)
[2024-07-27] MEDS: LORazepam 0.5 mg Tablet PO (00:03)
[2024-07-27 01:43] VITALS: PULSE 93
--- NOTE | 2024-07-27 02:10 | PC.NURSE ---
AMA: Pt stating that she is uncomfortable and would like to go home. Explained to the pt that she would be leaving AM and asked if she understood why she was admitted and what the risks were if she decided to leave [place], she replied that she understood. Pt is A&OX4. Pt called family and they will come to pick her up. Dr. Madsen notified and he advised that the pt follow up with her PCP in the morning to get her labs rechecked and antibiotics for her UTI - relayed to the patient. AMA form signed.
--- NOTE | 2024-07-27 03:18 | PC.NURSE ---
Family (Reymundo) here to take pt home, told him that the pt needed to call her PCP in the morning and follow up for repeat labwork and to get an antibiotic for a UTI, he expressed understanding. Answered his questions. Removed IV and pt taken out in a wheelchair.
== END 2024-07-27 03:27 | disposition left against medical advice (07) ==
LOC: ER 21:09 → MEDSURG 22:22
PROVIDERS: Family Medicine; Admitting Provider Internal Medicine; Emergency Provider Student in an Organized Health Care Education/Training Program; PCP Electrodiagnostic Medicine; Visit Provider Internal Medicine
DX: N39.0 Urinary tract infection, site not specified (principal); E87.6 Hypokalemia; E87.1 Hypo-osmolality and hyponatremia; E83.42 Hypomagnesemia; E83.39 Other disorders of phosphorus metabolism; Z79.82 Long term (current) use of aspirin; J44.9 Chronic obstructive pulmonary disease, unspecified; I10 Essential (primary) hypertension; I25.10 Atherosclerotic heart disease of native coronary artery without angina pectoris; E11.9 Type 2 diabetes mellitus without complications; K21.9 Gastro-esophageal reflux disease without esophagitis; Z96.652 Presence of left artificial knee joint; Z87.891 Personal history of nicotine dependence; Z79.899 Other long term (current) drug therapy; Z53.29 Procedure and treatment not carried out because of patient's decision for other reasons
CPT/HCPCS: 36415; 71045; 80053; 81001; 83735; 84100; 85025; 87086; 93005; 96365; 99285; G0378; J0696; J3475; J7030; J9999

== ENCOUNTER 2024-07-27 09:20 | Emergency (ER) | payer MEDICARE, SELFPAY ==
[2024-07-27 09:24] VITALS: BP 124/57; PULSE 68; RESP 15; TEMP 36.6; O2SAT 96
--- NOTE | 2024-07-27 09:25 | ECG_ITS ---
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 Measurements Intervals [place] Rate: 67 P: 38 ID: [id number] QRS: -3 QRSD: 85 T: -15 QT: 375 QTc: 397 Interpretive Statements SINUS RHYTHM WITH FIRST DEGREE AV BLOCK LOW QRS VOLTAGE IN PRECORDIAL LEADS [QRS DEFLECTION < 1.0 mV IN CHEST LEADS] ANTEROSEPTAL MYOCARDIAL INFARCTION , OF INDETERMINATE AGE [40+ ms Q WAVE IN V1-V4] Compared to ECG 07/26/2024 17:06:40 First degree AV block now present Low QRS voltage now present Myocardial infarct finding still present Electronically Signed On 07-27-2024 21:42:17 CDT by Alistair Martell M.D. [email or web address] [id number]
--- NOTE | 2024-07-27 09:25 | XR_ITS ---
WS: [id number] Portable AP upright chest, 07/27/2024 Clinical Data: dyspnea/cough Comparison: Portable chest, 07/26/2024 Findings: There is a patchy opacity in the retrocardiac region unchanged. This opacity could represent atelectasis, pneumonia and/or effusion. No nodules, masses or effusions are seen. The heart is normal. The pulmonary vascularity is not increased. No pneumothorax is seen. The aortic arch shows calcification. There are monitor leads on the chest wall. XR/XR chest 1V portable [id number] Impression: 1. Patchy opacity in retrocardiac region of left lower lobe. 2. Atherosclerosis.
[2024-07-27 09:36] VITALS: PULSE 66; RESP 16; O2SAT 96
[2024-07-27 09:40] LABS: Basophils # 0.1 10^3/uL (0.0-0.1); Basophils % 1.2 %; Eosinophils # 0.2 10^3/uL (0.0-0.8); Eosinophils % 3.2 %; Hematocrit 28.2 % (36-47); Lymphocytes # 0.8 10^3/uL (0.8-4.8); Lymphocytes % 13.9 %; Mean Corpuscular HGB Conc 30.9 g/dL (30-55); Mean Corpuscular Volume 90.7 fl (85-98); Mean Platelet Volume 8.6 fL (7.4-10.4); Monocytes # 0.5 10^3/uL (0.2-0.9); Neutrophils # 4.31 10^3/uL (1.8-7.7); Neutrophils % 71.9 %; Nucleated Red Blood Cells % 0 %; Platelet Count 341 10^3/cmm (157-399); Red Blood Count 3.11 10^6/uL (3.85-5.65); Red Cell Distribution Width 15.4 % (12.1-15.1); White Blood Count 5.99 10^3/uL (3.29-11.43)
--- NOTE | 2024-07-27 09:46 | ED_ITS ---
HPI - Weakness 2 General: Chief complaint: Weakness Stated complaint: chest pressure, weakness Time Seen by Provider: 07/27/24 09:25 History of Present Illness: 73-year-old female presents to the [facility] en[facility] room again describing just generally feeling weak. Difficult to get her to give a pinpoint symptom. She was directed here yesterday due to labs that were noted to be abnormal in the outpatient setting particularly her sodium potassium and magnesium. When she was seen last night her potassium potassium was 3.1 which is not too far off or she has been in the past she was given replacement. Magnesium was 0.9 she is chronically had trouble with hypomagnesemia she was given IV magnesium. Her sodium was 128 which is about where she typically runs her creatinine was 1.2 which is typical for her renal function. She was found to have a cystitis was given a dose of Rocephin she was placed on observation on the left AMA and at around 2 AM. She returns now stating she just generally does not feel well. She is complaining of some mild chest pressure she has some shortness of breath with exertion. No fever no abdominal pain. Associated symptoms: Denies chest pain, chills, dysuria or fever(s) Review of Systems 2 Const: Denies: fever(s) or chills Card: Denies: chest pain Resp: Denies: dyspnea GI: Denies: abdominal pain : Denies: dysuria, urinary frequency or urinary urgency Musc: Denies: neck pain or back pain Skin/Breast: Denies: rash PFSH ED 2 PFSH: Medical History Chronic hyponatremia Coronary artery disease Gingivitis Oral mucositis (ulcerative), unspecified Chronic cystitis Pelvic pain Osteopenia after menopause Alopecia of scalp Asthma Meniere disease Diabetes Joint pain Positive CYNTHIA (antinuclear antibody) COPD (chronic obstructive pulmonary disease) Hypertension GERD (gastroesophageal reflux disease) Cystitis Surgical History Hx of total knee arthroplasty History of total left knee replacement Status post hysterectomy Hx of heart artery stent Family History Grandmother CAD (coronary artery disease) Other Cancer Hypertension Denies family history of Rheumatoid arthritis Diabetes Lupus Hyperlipidemia Chronic kidney disease (CKD) Lung disease Stroke Social History Smoking and tobacco/nicotine status: former use of tobacco/nicotine Quit status (tobacco/nicotine): has quit using Year quit tobacco: 2008 Former quit date comment: 16 years ago Alcohol intake: never Substance/Drug Use: never Additional social history: Patient wants full code but not prolonged efforts or life support as discussed on 07/26/2024 with Tl Madsen MD and [id number] Ericka patient denies alcohol or drug use she quit tobacco 16 years ago Adopted: No Caregiver/support person: No Lives independently: No Household members: spouse Marital status: Current occupational status: retired Physical Exam 2 Const: COMMON NORMALS: no acute distress GENERAL APPEARANCE: cooperative and comfortable ORIENTATION/CONSCIOUSNESS: Yes awake, Yes oriented to person, Yes oriented to place and Yes oriented to time HENMT: COMMON NORMALS: normocephalic, atraumatic and hearing grossly normal bilaterally HEAD & SCALP: normocephalic and atraumatic Resp: AUSCULTATION: crackles Cardio: COMMON NORMALS: regular rate, regular rhythm and No murmurs present (Cardio) RATE: regular rate RHYTHM: regular rhythm GI: COMMON NORMALS: Soft to palpation and No hepatosplenomegaly present A USCULTATION: Yes normoactive bowel sounds PALPATION: Yes Soft to palpation, No Tenderness to palpation present (GI), No Guarding due to palpation present (GI) and Yes No hepatosplenomegaly present Extremity: COMMON NORMALS: normal to inspection, capillary refill normal, no clubbing, cyanosis or edema, no calf tenderness and no pedal edema Neuro: SENSORIUM/ORIENTATION: Yes oriented to person, Yes oriented to place and Yes oriented to time Skin: COMMON NORMALS: no rashes or lesions noted GENERAL SKIN EXAM: no rashes or lesions noted Course 2 Vital Signs: Vital signs: Vital Signs Temperature 97.8 F 07/27/24 09:24 Pulse Rate 71 07/27/24 12:14 Respiratory Rate 16 07/27/24 12:14 Blood Pressure 137/60 07/27/24 12:14 Pulse Oximetry 97 07/27/24 12:14 Oxygen Delivery Me thod Room Air 07/27/24 09:24 MDM - Weakness Medical Decision Making Her laboratory tests are all in general better than last night. She still is chronically anemic but this is unchanged probably does require further evaluation her magnesium potassium sodium are all slightly improved even her renal function has improved no other findings of decompensation at this point sounds like she is in a decompensated congestive heart failure. She does have the cystitis she was given IV antibiotics for last night but because she left AMA she did not get a prescription to go home with we will start her on cephalexin repeat urine today actually already looks better. Follow-up with her primary care doctor return if she has further problems. Medical Records I reviewed the patient's medical records. Most recent angiogram reviewed no obstructive coronary artery disease. Echocardiogram showed 60% EF in June 2024 with some mild diastolic dysfunction. Lab Data I reviewed the patient's lab results. 07/27/24 09:32 07/27/24 09:32 Radiology Impressions Chest X-Ray 07/27/24 09:25 Impression: 1. Patchy opacity in retrocardiac region of left lower lobe. 2. Atherosclerosis. Laboratory Results WBC 5.99 10^3/uL (3.29-11.43) 07/27/24 09:32 RBC 3.11 10^6/uL (3.85-5.65) L 07/27/24 09:32 Hgb 8.70 g/dL (11.27-16.99) L 07/27/24 09:32 Hct 28.2 % (36-47) L 07/27/24 09:32 MCV 90.7 fl (85-98) 07/27/24 09:32 MCH 28.0 pg (27-33) 07/27/24 09:32 MCHC 30.9 g/dL (30-55) 07/27/24 09:32 RDW 15.4 % (12.1-15.1) H 07/27/24 09:32 Plt Count 341 10^3/cmm (157-399) 07/27/24 09:32 MPV 8.6 fL (7.4-10.4) 07/27/24 09:32 Neut % (Auto) 71.9 % 07/27/24 09:32 Lymph % (Auto) 13.9 % 07/27/24 09:32 Randall % (Auto) 8.0 % 07/27/24 09:32 Eos % (Auto) 3.2 % 07/27/24 09:32 Baso % (Auto) 1.2 % 07/27/24 09:32 Neut # (Auto) 4.31 10^3/uL (1.8-7.7) 07/27/24 09:32 Lymph # (Auto) 0.8 10^3/uL (0.8-4.8) 07/27/24 09:32 Randall # (Auto) 0.5 10^3/uL (0.2-0.9) 07/27/24 09:32 Eos # (Auto) 0.2 10^3/uL (0.0-0.8) 07/27/24 09:32 Baso # (Auto) 0.1 10^3/uL (0.0-0.1) 07/27/24 09:32 Nucleated RBC % (auto) 0 % 07/27/24 09:32 Nucleated RBCs # 0.0 /100WBC 07/27/24 09:32 Sodium 130 mmol/L (136-145) L 07/27/24 09:32 Potassium 4.1 mmol/L (3.5-5.1) 07/27/24 09:32 Chloride 99 mmol/L (98-107) 07/27/24 09:32 Carbon Dioxide 18 mmol/L (22-29) L 07/27/24 09:32 Anion Gap 17.1 (5-19) 07/27/24 09:32 BUN 11 mg/dL (8-23) 07/27/24 09:32 Creatinine 1.1 mg/dL (0.5-0.9) H 07/27/24 09:32 GFR Calculation Not Reportable 07/27/24 09:32 Glucose 113 mg/dL (65-115) 07/27/24 09:32 Calculated Osmolality 270 mOsm/kg (285-295) L 07/27/24 09:32 Calcium 8.3 mg/dL (8.5-10.5) L 07/27/24 09:32 Magnesium 1.7 mg/dL (1.7-2.3) 07/27/24 09:32 Total Bilirubin 0.3 mg/dL (0.15-1.2) 07/27/24 09:32 AST 30 U/L (0-32) 07/27/24 09:32 ALT 32 U/L (0-33) 07/27/24 09:32 Alkaline Phosphatase 136 U/L (35-105) H 07/27/24 09:32 Troponin T Baseline 36 ng/L (0-10) H 07/27/24 09:32 Troponin T 120 Minute 32.81 ng/L (0-10) H 07/27/24 11:10 Delta Troponin T -3.19 ABS# (0-10) L 07/27/24 11:10 NT-Pro-B Natriuret Pep 1469 pg/mL (0-125) H 07/27/24 09:32 Total Protein 5.8 g/dL (6.6-8.7) L 07/27/24 09:32 Albumin 3.3 g/dL (3.5-5.2) L 07/27/24 09:32 Globulin 2.5 g/dL (1.3-4.6) 07/27/24 09:32 Urine Color Yellow (Yellow) 07/27/24 09:49 Urine Appearance Clear (CLEAR) 07/27/24 09:49 Urine pH 8.0 (5-7) A 07/27/24 09:49 Ur Specific [place]win 1.013 (1.005-1.030) 07/27/24 09:49 Urine Protein 1+ (Negative) A 07/27/24 09:49 Urine Glucose (UA) 3+ (Normal) H 07/27/24 09:49 Urine Ketones Negative (Negative) 07/27/24 09:49 Urine Blood Negative (Negative) 07/27/24 09:49 Urine Nitrate Negative (Negative) 07/27/24 09:49 Urine Bilirubin Negative (Negative) 07/27/24 09:49 Urine Urobilinogen 1.0 mg/dL (Negative) 07/27/24 09:49 Ur Leukocyte Esterase Trace (Negative) A 07/27/24 09:49 Urine RBC 0-2 /hpf (0-2) 07/27/24 09:49 Urine WBC 11-20 /hpf (0-5) H 07/27/24 09:49 Ur Squamous Epith Cells 6-10 /hpf (0-5) 07/27/24 09:49 Amorphous Sediment Not Reportable 07/27/24 09:49 Urine Bacteria None seen /hpf (NONE) 07/27/24 09:49 Hyaline Casts 0-4 /lpf H 07/27/24 09:49 All radiology interpretation(s) finalized by discharge Discharge Plan Discharge Patient Disposition: Home Clinical Impression: Anemia, Diabetes, Hypomagnesemia, Chronic hyponatremia, UTI (urinary tract infection) Condition: Stable Prescriptions: New cephalexin 250 mg capsule 250 mg PO QID 5 Days Qty: 20 0RF No Action amitriptyline 10 mg tablet 10 mg PO BEDTIME (DME) TLSO [place] See Rx Instructions .Route .MEDSUPPLY Qty: 1 0RF Rx Instructions: As directed atorvastatin 20 mg tablet 10 mg PO QPM metoprolol tartrate 100 mg tablet 50 mg PO BID tramadol 50 mg tablet 100 mg PO BEDTIME albuterol sulfate 90 mcg/actuation HFA aerosol inhaler 1 inh INHALATION Q6H PRN (Reason: Shortness Of Breath) fluticasone propionate 50 mcg/actuation spray,suspension 1 spray INTRANASAL DAILY fluticasone furoate-vilanterol [Breo Ellipta] 100-25 mcg/dose blister with device 1 inh INHALATION DAILY lidocaine 5 % ointment 1 applic topical QID PRN (Reason: Skin Irritation) cetirizine 10 mg Tablet 10 mg PO QAM aspirin 81 mg Tablet,Delayed Release (Dr/Ec) 81 mg PO QAM ropinirole 1 mg tablet 1 mg PO BEDTIME PRN (Reason: restless legs) hydrocortisone [Proctozone-HC] 2.5 % cream with perineal applicator See Rx Instructions .ROUTE .COMPLEX Rx Instructions: Apply thin layer TO affected area two to four times daily. pantoprazole 40 mg tablet,delayed release (DR/EC) 40 mg PO QAM gabapentin 300 mg capsule 300 mg PO QAM magnesium oxide 400 mg (241.3 mg magnesium) Tablet 400 mg PO BID 30 Days Qty: 60 0RF tamsulosin 0.4 mg Capsule 0.4 mg PO DAILY 30 Days Qty: 30 0RF sodium bicarbonate 650 mg tablet 650 mg PO BID Qty: 60 0RF Eliquis DVT-PE Treat 30D Start 5 mg (74 tabs) tablets,dose pack See Rx Instructions .ROUTE .COMPLEX Qty: 74 0RF Rx Instructions: orally per package directions furosemide 20 mg tablet 20 mg PO DAILY PRN (Reason: weight gain 5 lbs) Qty: 10 0RF calcium citrate-vitamin D3 500 mg-12.5 mcg (500 unit) tablet,chewable 1 tab PO BID@08,16 Qty: 60 0RF Discharge Orders: Discharge ED (Routine); Ordered 07/27/24 Ordered By: Jean-Pierre Moore Referrals: Mitul Peters, DO [Primary Care Provider, Family Practice] Discharge Diet: Usual diet Discharge Activity: Increase activity as tolerated Patient Instructions: Opioid Safety, Pain Management Activity Restrictions/Additional Instructions: [facility]. It is very important that you follow up as instructed or that you return to the Emergency Department should you have concerns or if your condition changes or worsens in any way. You were seen in the emergency room with concerns of generally feeling weak. Your electrolytes compared to yesterday are all improved. These should continue to be monitored as an outpatient by your primary care doctor given your history of abnormalities you have had in the past. Your kidney function is also improved. You still do have a mild bladder infection however it appears to have improved and your white count is normal. Would recommend that you take oral antibiotics cephalexin 1 pill 4 times a day for 5 days. Finally you were noted to be chronically anemic discussed with your primary care doctor about further evaluation for this anemia. At this point you do not require transfusion however this could be a cause of generally feeling very weak. Print Language: [place]ican Coding Level of Care Code ED Manager Benefit for Chg Fwd Related Data Home Medications ?Medication ?Instructions ?Recorded ?Confirmed amitriptyline 10 mg tablet 10 mg PO BEDTIME 09/12/19 0 07/10/24 albuterol sulfate 90 mcg/actuation 1 inh inhalation Q6 H PRN Shortness 03/06/24 07/10/24 aerosol inhaler Of Breath atorvastatin 20 mg tablet 10 mg PO QPM 03/06/24 fluticasone furoate 100 1 inh inhalation DAILY 03/0607/10/24 mcg-vilanterol 25 mcg/dose inhalation powder (Breo Ellipta) fluticasone propionate 50 1 spray intranasal DAILY 07/10/24 mcg/actuation nasal spray,suspension metoprolol tartrate 100 mg tablet 50 mg PO BID 5 07/10/24 tramadol 50 mg tablet 100 mg PO BEDTIME 03/06/24 0 07/10/24 aspirin 81 mg tablet,delayed 81 mg PO QAM 07/10/24 release cetirizine 10 mg tablet 10 mg PO QAM 07/10/24 gabapentin 300 mg capsule 300 mg PO QAM 07/10/2407/10 hydrocortisone 2.5 % topical cream See Rx Instructions .Route .COMPLEX 07/10/24 07/10/24 with perineal applicator (Proctozone-HC) lidocaine 5 % topical ointment 1 applic topical QID OK N Skin 07/10/24 07/10/24 Irritation pantoprazole 40 mg tablet,delayed 40 mg PO QAM 07/10/24 release ropinirole 1 mg tablet 1 mg PO BEDTIME PRN restless legs 07/10/24 07/10/24 Previous Rx's ?Medication ?Instructions ?Recorded TLSO Brace #1 ea 03/15/24 apixaban 5 mg (74 tabs) tablets in See Rx Instructions PO .COMPLEX 07/12/24 a dose pack ([employer] DVT-PE Treat #74 ea 30D Start) furosemide 20 mg tablet 20 mg PO DAILY PRN weight ga in 5 07/12/24 lbs #10 tabs magnesium oxide 400 mg (241.3 mg 400 mg PO BID 30 days #60 tabs 07/12/24 magnesium) tablet sodium bicarbonate 650 mg tablet 650 mg PO BID #60 tab s 07/12/24 tamsulosin 0.4 mg capsule 0.4 mg PO DAILY 30 days #30 caps 07/12/24 calcium 500 mg (as citrate)-vit D3 1 tab PO BID@08,16 #60 tabs 07/13/24 12.5 mcg (500 unit) chewable tablet cephalexin 250 mg capsule 250 mg PO QID 5 days #20 cap s 07/27/24 Allergies Allergy/AdvReac Type Severity Reaction Status Date / Time amlodipine Allergy Severe ADR/ALGY-Flushing/Facial Verified 07/10/24 14:22 swelling
[2024-07-27 10:01] VITALS: BP 124/57; PULSE 66; RESP 16; O2SAT 95
[2024-07-27 10:03] LABS: Troponin(5th) Baseline 36 ng/L (0-10)
[2024-07-27 10:10] LABS: Alanine Aminotransferase 32 U/L (0-33); Albumin Level 3.3 g/dL (3.5-5.2); Alkaline Phosphatase 136 U/L (35-105); Anion Gap 17.1 (5-19); Aspartate Amino Transferase 30 U/L (0-32); Blood Urea Nitrogen 11 mg/dL (8-23); Calcium 8.3 mg/dL (8.5-10.5); Carbon Dioxide 18 mmol/L (22-29); Chloride 99 mmol/L (98-107); Creatinine Clr Calc Pharmacy 42.9613; Globulin 2.5 g/dL (1.3-4.6); Glucose 113 mg/dL (65-115); Magnesium 1.7 mg/dL (1.7-2.3); NT Pro B Type Natriuretic Pept 1469 pg/mL (0-125); Osmolality Calculated 270 mOsm/kg (285-295); Potassium 4.1 mmol/L (3.5-5.1); Sodium 130 mmol/L (136-145); Total Bilirubin 0.3 mg/dL (0.15-1.2); Total Protein 5.8 g/dL (6.6-8.7)
[2024-07-27 10:21] LABS: Bilirubin Urine Negative (Negative); Blood Urine Negative (Negative); Glucose Urine UA 3+ (Normal); Ketones Urine Negative (Negative); Leukocyte Esterase Urine Trace (Negative); Nitrate Urine Negative (Negative); Protein Urine 1+ (Negative); Specific Gravity, Urine 1.013 (1.005-1.030); Urine Appearance Clear (CLEAR); Urine Color Yellow (Yellow)
[2024-07-27 10:26] LABS: Add Urine Microscopic? YES; Bacteria Urine None Seen /hpf; Hyaline Casts Urine 0-4 /lpf; RBC Urine 0-2 /hpf (0-2)
[2024-07-27 10:28] LABS: Add Urine Culture? No
[2024-07-27 11:05] VITALS: BP 118/70; PULSE 74; RESP 16; O2SAT 97
--- NOTE | 2024-07-27 11:25 | ECG_ITS ---
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 Measurements Intervals [place] Rate: 68 P: 56 [place]: 223 QRS: 2 QRSD: 89 T: -24 QT: 369 QTc: 395 Interpretive Statements SINUS RHYTHM WITH FIRST DEGREE AV BLOCK POSSIBLE LEFT ATRIAL ENLARGEMENT [-0.1mV P-WAVE IN V1/V2] POSSIBLE ANTERIOR MYOCARDIAL INFARCTION , OF INDETERMINATE AGE [30 ms Q WAVE IN V3/V4, OR R < 0.2 mV IN V4] Compared to ECG 07/26/2024 17:06:40 First degree AV block now present Myocardial infarct finding still present Electronically Signed On 07-27-2024 22:14:04 CDT by Alistair Martell M.D. [email or web address]
[2024-07-27 11:30] VITALS: BP 137/60; PULSE 73; RESP 16; O2SAT 98
[2024-07-27 11:33] LABS: Troponin 5 2HR 32.81 ng/L (0-10)
[2024-07-27 11:41] LABS: Troponin 5 2HR Delta -3.19 ABS# (0-10)
[2024-07-27 12:14] VITALS: BP 137/60; PULSE 71; RESP 16; O2SAT 97
== END 2024-07-27 12:15 | disposition home or self-care (01) ==
PROVIDERS: Emergency Provider Family Medicine; PCP Electrodiagnostic Medicine
DX: D64.9 Anemia, unspecified (principal); E11.9 Type 2 diabetes mellitus without complications; E83.42 Hypomagnesemia; E87.1 Hypo-osmolality and hyponatremia; N39.0 Urinary tract infection, site not specified; Z79.82 Long term (current) use of aspirin; Z79.01 Long term (current) use of anticoagulants; Z87.891 Personal history of nicotine dependence; I25.10 Atherosclerotic heart disease of native coronary artery without angina pectoris; J44.9 Chronic obstructive pulmonary disease, unspecified
CPT/HCPCS: 36415; 71045; 80053; 81001; 83735; 83880; 84484; 85025; 93005; 99285

== ENCOUNTER → 2024-08-02 08:16 | Outpatient (BNVA) | payer MEDICARE, SELFPAY | PROVIDERS: PCP Electrodiagnostic Medicine; Visit Provider Nurse Practitioner Family | DX: I25.10 Atherosclerotic heart disease of native coronary artery without angina pectoris (principal); Z09 Encounter for follow-up examination after completed treatment for conditions other than malignant neoplasm; I12.9 Hypertensive chronic kidney disease with stage 1 through stage 4 chronic kidney disease, or unspecified chronic kidney disease; N19 Unspecified kidney failure; D64.89 Other specified anemias; E87.6 Hypokalemia; Z79.01 Long term (current) use of anticoagulants; Z79.82 Long term (current) use of aspirin; Z95.5 Presence of coronary angioplasty implant and graft; Z87.891 Personal history of nicotine dependence | CPT/HCPCS: 99214 ==

== ENCOUNTER → 2024-08-26 11:10 | Outpatient (BNVA) | payer MEDICARE, SELFPAY | PROVIDERS: PCP Electrodiagnostic Medicine; Referring Provider Electrodiagnostic Medicine; Visit Provider Internal Medicine | DX: D64.9 Anemia, unspecified (principal); E87.6 Hypokalemia; E11.9 Type 2 diabetes mellitus without complications; I25.10 Atherosclerotic heart disease of native coronary artery without angina pectoris; I10 Essential (primary) hypertension; E83.39 Other disorders of phosphorus metabolism | CPT/HCPCS: 36415; 80053; 82306; 82310; 82784; 83516; 83735; 83970 ==

== ENCOUNTER → 2024-10-28 12:25 | Outpatient (BNVA) | payer MEDICARE, SELFPAY | PROVIDERS: PCP Electrodiagnostic Medicine; Referring Provider Electrodiagnostic Medicine; Visit Provider Internal Medicine | DX: E83.9 Disorder of mineral metabolism, unspecified (principal); R79.89 Other specified abnormal findings of blood chemistry; N18.9 Chronic kidney disease, unspecified; E83.42 Hypomagnesemia; E11.9 Type 2 diabetes mellitus without complications | CPT/HCPCS: 36415; 80053; 82306; 82310; 83735; 83970 ==

== ENCOUNTER → 2025-01-27 08:40 | Outpatient (BNVA) | payer MEDICARE, SELFPAY | PROVIDERS: PCP Electrodiagnostic Medicine; Visit Provider Nurse Practitioner Family | DX: I25.10 Atherosclerotic heart disease of native coronary artery without angina pectoris (principal); E11.22 Type 2 diabetes mellitus with diabetic chronic kidney disease; I12.9 Hypertensive chronic kidney disease with stage 1 through stage 4 chronic kidney disease, or unspecified chronic kidney disease; N18.9 Chronic kidney disease, unspecified; Z79.01 Long term (current) use of anticoagulants; Z87.891 Personal history of nicotine dependence | CPT/HCPCS: 99214 ==